=== PATIENT | male | born 1965 | race Caucasian/White ===

== ENCOUNTER → 2019-07-20 | Outpatient (CLI) | payer OTHER, SELFPAY ==
[2017-07-17 12:36] VITALS: BMI 22.8
[2019-07-20 11:32] LABS: PSA,Total - Annual Screen 0.86 ng/mL (0.00-4.00)
== END | disposition home or self-care (01) ==
LOC: LAB 10:42
PROVIDERS: Family Provider Family Medicine; PCP Family Medicine; Referring Provider Family Medicine; Visit Provider Family Medicine
DX: Z00.00 Encounter for general adult medical examination without abnormal findings (principal); Z12.5 Encounter for screening for malignant neoplasm of prostate
CPT/HCPCS: 36415; 84153; G0103

== ENCOUNTER 2019-09-23 14:42 | Emergency (ER) | payer OTHER, SELFPAY ==
[2019-09-23 14:44] VITALS: BP 147/77; PULSE 103; RESP 14; TEMP 36.6; O2SAT 96; BMI 31.8
--- NOTE | 2019-09-23 15:21 | ED.DCSUM_ITS ---
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 [id number]. Tetanus Immunization: 5-10 years - Past Medical History (1) Hyperlipidemia Status: Chronic Past Medical History - Allergies and Home Meds Allergies/Adverse Reactions: Allergies shellfish derived Allergy (Verified 09/23/19 14:43) Angioedema Primary Care Physician: Donato Patricia MD [Primary Care Provider] - Lives: With Family Smoking Status: Never smoker Review of Systems Musculoskeletal: Reports: Extremity Pain Skin: Reports: Wounds. Denies: Rash, Abscess Neurological: Denies: Headache, Weakness, Numbness Physical Exam Vital Signs/Narrative: Vital Signs Temp Pulse Resp BP Pulse Ox 09/23/19 14:44 97.8 F 103 H 14 147/77 H 96 General: Well nourished, Well developed, - - Well-appearing, NAD Head: Normocephalic, Atraumatic Extremeties: Tenderness, swelling, bruising to the volar distal phalanx/finger pad of the left fifth digit, as well as a small subungual hematoma at the base of the nail, tenderness is not severe. There is a laceration that is partial- thickness/superficial, clean appearing, curved just proximal to the nail on the dorsum, the nail is intact within the nailbed and the nail fold, there does not appear to be a nailbed laceration. Skin: Trauma - Superficial partial-thickness 1 cm laceration dorsum of the left small finger tip, just proximal to the nail at the radial aspect Neurological: Alert, Oriented x3, Cranial nerves II-XII grossly intact, Normal Strength, Normal Sensation, Normal Gait Psychological: Normal affect, Normal Mood Diagnostic/Tx/Re-eval Clinical Impression(s) from Imaging Studies Finger X-Ray 09/23/19 15:35 IMPRESSION: Nondisplaced transverse fracture through the distal portion of the distal phalanx of the fifth digit with overlying soft tissue swelling. Electronically Signed: Rodrigo Romero, at 15:49 EST , Service support , - Medical Decision Making X-ray shows a tuft fracture. After we cleansed the wound and reevaluated it, it does appear to expose the base of the nail although it is intact within the nail fold. There does not appear to be a repairable nailbed injury right now, just a subungual hematoma but the pressure is probably released because he does not have severe pain. Offered analgesics, he except some ibuprofen. We will bandage it with bacitracin, a cage distal finger splint, and prophylactic antibiotics given the probability that this is an open fracture. Since it is just a tuft fracture and will likely not require any surgical management, will have him start by following up with [employer] [facility]. He is comfortable with this plan. Prescribed Duricef. ED Disposition - Plan for ED Patient: Disposition: Home or Assisted Living Diagnosis: Open fracture of distal phalanx of digit of left hand Instructions: FRACTURE, Finger (Open) Prescriptions: Cefadroxil Hydrate [Duricef] 500 mg PO BID 5 Days #10 cap Prescription Printed Referrals: [facility] [GROUP OF PHYSICIANS] - 1 Day
--- NOTE | 2019-09-23 15:35 | RAD_ITS ---
STUDY: X-RAY - LEFT HAND, ATTENTION FIFTH FINGER REASON FOR EXAM: Male, 54 years old. Smashing injury to left fifth digit. TECHNIQUE: 3 view(s) of the finger were obtained. COMPARISON: None. FINDINGS: Normal metacarpal head. Normal metacarpophalangeal joint. Normal proximal phalanx. Normal middle phalanx. Nondisplaced transverse fracture of the distal aspect of the distal phalanx of the fifth digit. Normal proximal interphalangeal joint. Normal distal interphalangeal joint. Soft tissue swelling RAD/Finger(s) Min 2 Views IMPRESSION: Nondisplaced transverse fracture through the distal portion of the distal phalanx of the fifth digit with overlying soft tissue swelling. Electronically Signed: Rodrigo Romero, at 15:49 EST , Service support ,
[2019-09-23] MEDS: Ibuprofen 600 MG Tablet PO (16:14)
== END 2019-09-23 16:27 | disposition home or self-care (01) ==
PROVIDERS: Emergency Provider Emergency Medicine; Family Provider Family Medicine; PCP Family Medicine
DX: S62.667B Nondisplaced fracture of distal phalanx of left little finger, initial encounter for open fracture (principal); S60.152A Contusion of left little finger with damage to nail, initial encounter; W23.0XXA Caught, crushed, jammed, or pinched between moving objects, initial encounter; Y93.9 Activity, unspecified; Y92.9 Unspecified place or not applicable; E78.5 Hyperlipidemia, unspecified; Z79.899 Other long term (current) drug therapy
CPT/HCPCS: 73140; 99283

== ENCOUNTER → 2019-10-22 08:06 | Outpatient (CLI) | payer OTHER, SELFPAY ==
[2019-10-08 13:13] VITALS: BMI 31.8
[2019-10-22 08:56] LABS: Color, Urine Yellow (Yellow); Glucose, Dipstick Normal (Normal); Ketone-Dipstick 15 mg/dl (Negative); Leukocyte Esterase-Dipstick Negative /ul (Negative); Nitrite-Dipstick Negative (Negative); Occult Blood-Urine Negative /ul (Negative); Protein-Dipstick 15 mg/dl (Negative); Specific Gravity, Urine 1.025 (1.002-1.030); Urine Bilirubin Dipstick Negative (Negative); Urine Clarity Clear (Clear); Urine Urobilinogen Normal (Normal)
[2019-10-22 09:26] LABS: AST(SGOT) 23 U/L (15-37); Alanine Aminotransfer ALT/SGPT 40 U/L (16-61); Albumin, Serum 3.9 g/dL (3.2-5.0); Alkaline Phosphatase 80 U/L (45-117); Bilirubin, Direct 0.27 mg/dL (0.00-0.30); Cholesterol 167 mg/dL (200); Globulin 3.2 g/dL (2.2-4.2); High Density Lipoprotein 59 mg/dL; Protein, Total 7.1 g/dL (6.4-8.2); Triglycerides 69 mg/dL; Very Low Density Lipoprotein 14 mg/dL (5-40)
== END ==
PROVIDERS: Family Provider Family Medicine; PCP Family Medicine
DX: E78.5 Hyperlipidemia, unspecified (principal); R80.9 Proteinuria, unspecified
CPT/HCPCS: 36415; 80061; 80076; 81002

== ENCOUNTER → 2019-10-22 13:28 | Outpatient (CLI) | payer OTHER, SELFPAY ==
[2019-10-22 13:12] VITALS: BMI 31.8
--- NOTE | 2019-10-22 13:31 | RAD_ITS ---
STUDY: X-RAY - LEFT HAND, ATTENTION FIFTH FINGER REASON FOR EXAM: Male, 54 years old. Trauma. TECHNIQUE: 3 view(s) of the finger were obtained. COMPARISON: None. FINDINGS: Normal metacarpal head. Normal metacarpophalangeal joint. Normal proximal phalanx. Normal middle phalanx. There is a transverse fracture with separation along the fracture line involving the tip of the distal phalanx. Normal proximal interphalangeal joint. Normal distal interphalangeal joint. RAD/Finger(s) Min 2 Views IMPRESSION: Fracture of the tip of the distal phalanx of the fifth finger as described above. Electronically Signed: Bette Ghotra MD at 3:47 EST , Service support ,
== END ==
PROVIDERS: Family Provider Family Medicine; PCP Family Medicine; Referring Provider Physician Assistant Surgical; Visit Provider Physician Assistant Surgical
DX: S62.637B Displaced fracture of distal phalanx of left little finger, initial encounter for open fracture (principal)
CPT/HCPCS: 73140

== ENCOUNTER → 2020-01-28 08:16 | Outpatient (CLI) | payer OTHER, SELFPAY ==
[2019-10-22 13:12] VITALS: BMI 31.8
[2020-01-28 09:49] LABS: AST(SGOT) 23 U/L (15-37); Alanine Aminotransfer ALT/SGPT 36 U/L (16-61); Albumin, Serum 4.1 g/dL (3.2-5.0); Alkaline Phosphatase 74 U/L (45-117); Bilirubin, Direct 0.18 mg/dL (0.00-0.30); Cholesterol 164 mg/dL (200); Globulin 3.2 g/dL (2.2-4.2); High Density Lipoprotein 54 mg/dL; Protein, Total 7.3 g/dL (6.4-8.2); Triglycerides 87 mg/dL; Very Low Density Lipoprotein 17 mg/dL (5-40)
== END ==
PROVIDERS: PCP Family Medicine; Referring Provider Family Medicine; Visit Provider Family Medicine
DX: E78.5 Hyperlipidemia, unspecified (principal)
CPT/HCPCS: 36415; 80061; 80076

== ENCOUNTER → 2020-07-14 08:04 | Outpatient (CLI) | payer OTHER, SELFPAY ==
[2019-10-22 13:12] VITALS: BMI 31.8
[2020-07-14 09:17] LABS: Absolute Lymphocyte Count 1.97 X10^3/uL (0.83-4.51); Absolute Neutrophil Count 4.3 X10^3/uL (2.0-7.7); Basophil# 0.08 X10^3/uL; Basophil% 1.1 % (0-1); Eosinophil# 0.22 X10^3/uL; Eosinophils% 3.1 % (0-5); Hematocrit 46.3 % (40-54); Hemoglobin 15.5 g/dL (13.0-16.5); Lymphocyte # 1.97 X10^3/ul (4.0); Lymphocyte % 27.9 % (19-41); Mean Corp Hgb Conc 33.5 g/dL (32-36); Mean Corpuscular Hgb 30.8 pg (27.0-32.0); Mean Corpuscular Volume 91.9 fL (80-94); Mean Platelet Vol. 9.7 fl (6.2-12.0); Monocyte# 0.49 X10^3/uL; Monocyte% 6.9 % (0-10); NRBC Flagged by Analyzer 0 % (0-5); Neutrophil % 60.9 % (47-70); Platelet Count 234 K/mm3 (150-450); RBC Distribution Width CV 11.8 % (11.6-14.6); RBC Distribution Width SD 39.9 fl (35.1-43.9); Red Blood Count 5.04 M/mm3 (4.6-6.2); White Blood Count 7.1 K/mm3 (4.4-11.0)
[2020-07-14 09:53] LABS: ALB/GLOB Ratio 1.2 RATIO (0.9-2.4); AST(SGOT) 26 U/L (15-37); Alanine Aminotransfer ALT/SGPT 42 U/L (16-61); Albumin, Serum 3.9 g/dL (3.2-5.0); Alkaline Phosphatase 72 U/L (45-117); Anion Gap 6 (5-15); BUN 21 mg/dL (7-18); BUN/Creat Ratio 20.8 RATIO (10-20); Calcium,Total 8.7 mg/dL (8.5-10.1); Chloride 107 mmol/L (98-107); Creatinine, Serum 1.01 mg/dL (0.70-1.30); EST Glomerular Filtration Rate 82 mL/min (>60); Est Glom Filt Rate - Afr Amer 99 mL/min (>60); Globulin 3.3 g/dL (2.2-4.2); Glucose 89 mg/dL (74-106); Potassium 3.9 mmol/L (3.5-5.1); Protein, Total 7.2 g/dL (6.4-8.2); Sodium Level 141 mmol/L (136-145)
== END ==
PROVIDERS: PCP Family Medicine; Referring Provider Family Medicine; Visit Provider Family Medicine
DX: Z00.00 Encounter for general adult medical examination without abnormal findings (principal); E78.5 Hyperlipidemia, unspecified; Z12.5 Encounter for screening for malignant neoplasm of prostate
CPT/HCPCS: 36415; 80053; 85025

== ENCOUNTER → 2020-07-20 08:09 | Outpatient (CLI) | payer OTHER, SELFPAY ==
[2019-10-22 13:12] VITALS: BMI 31.8
[2020-07-20 09:27] LABS: PSA,Total - Annual Screen 0.89 ng/mL (0.00-4.00)
== END ==
PROVIDERS: PCP Family Medicine; Referring Provider Family Medicine; Visit Provider Family Medicine
DX: Z00.00 Encounter for general adult medical examination without abnormal findings (principal); Z12.5 Encounter for screening for malignant neoplasm of prostate
CPT/HCPCS: 36415; 84153; G0103

== ENCOUNTER → 2021-02-01 07:15 | Outpatient (CLI) | payer OTHER, SELFPAY ==
[2019-10-22 13:12] VITALS: BMI 31.8
[2021-02-01 08:08] LABS: AST(SGOT) 23 U/L (15-37); Alanine Aminotransfer ALT/SGPT 37 U/L (16-61); Alkaline Phosphatase 70 U/L (45-117); Bilirubin, Direct 0.23 mg/dL (0.00-0.30); Cholesterol 172 mg/dL (200); Globulin 3.3 g/dL (2.2-4.2); High Density Lipoprotein 70 mg/dL; Protein, Total 7.3 g/dL (6.4-8.2); Triglycerides 67 mg/dL; Very Low Density Lipoprotein 13 mg/dL (5-40)
== END ==
PROVIDERS: PCP Family Medicine; Referring Provider Family Medicine; Visit Provider Family Medicine
DX: E78.5 Hyperlipidemia, unspecified (principal)
CPT/HCPCS: 36415; 80061; 80076

== ENCOUNTER → 2021-08-08 07:16 | Outpatient (CLI) | payer OTHER, SELFPAY ==
[2021-08-08 08:22] LABS: PSA,Total - Annual Screen 1.41 ng/mL (0.00-4.00)
== END ==
PROVIDERS: PCP Family Medicine; Referring Provider Family Medicine; Visit Provider Family Medicine
DX: Z12.5 Encounter for screening for malignant neoplasm of prostate (principal)
CPT/HCPCS: 36415; 84153; G0103

== ENCOUNTER 2022-02-27 08:08 | Outpatient (CLI) | payer OTHER, SELFPAY ==
[2022-02-27 09:44] LABS: AST(SGOT) 22 U/L (15-37); Alanine Aminotransfer ALT/SGPT 35 U/L (16-61); Albumin, Serum 3.8 g/dL (3.2-5.0); Alkaline Phosphatase 61 U/L (45-117); Bilirubin, Direct 0.23 mg/dL (0.00-0.30); Cholesterol 168 mg/dL (200); High Density Lipoprotein 67 mg/dL; Protein, Total 6.8 g/dL (6.4-8.2); Triglycerides 79 mg/dL; Very Low Density Lipoprotein 16 mg/dL (5-40)
== END 2022-02-27 23:59 | disposition home or self-care (01) ==
LOC: LAB 08:09
PROVIDERS: PCP Family Medicine; Visit Provider Family Medicine
DX: E78.5 Hyperlipidemia, unspecified (principal)
CPT/HCPCS: 36415; 80061; 80076

== ENCOUNTER 2023-05-12 15:15 | Emergency (ER) | payer OTHER, SELFPAY ==
[2023-05-12 15:15] VITALS: BP 134/87; PULSE 108; RESP 16; TEMP 36.4; O2SAT 96; BMI 25.1
--- NOTE | 2023-05-12 16:19 | EX.ED.GENINJ ---
HPI History of Present Illness Chief Complaint: Laceration Narrative Narrative: 58-year-old male presenting with laceration to the scalp. He believes his tetanus is up-to-date. 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 Initially it was bleeding quite profusely. Able to get a dressing in place. He denies LOC. Denies dizziness, visual complaints, nausea. No neck pain. PFSH PFS Medical History Hyperlipemia Home Medications atorvastatin 10 mg tablet 10 mg PO QHS 09/23/19 [History Last Taken Unknown] Allergy/AdvReac Type Severity Reaction Status Date / Time shellfish derived Allergy Angioedema Verified 05/12/23 15:17 Social History Smoking Status: Never smoker ROS ROS ED Constitutional Constitutional ED: Denies chills, fever(s) or sweats Eyes Eyes: Denies blurry vision or change in vision ENT ENT ED: Denies ear pain or sore throat Cardiovascular Cardiovascular: Denies chest pain, palpitations or racing heartbeat Respiratory/Chest Respiratory/Chest: Denies cough, dyspnea or sputum Gastrointestinal Gastrointestinal: Denies abdominal pain, constipation, diarrhea, nausea or vomiting Genitourinary Genitourinary ED: Denies dysuria, hematuria or urinary frequency Musculoskeletal Musculoskeletal: Denies arthralgias, myalgias or neck pain Integumentary Reports other Details: 3 cm midline laceration and the scalp anteriorly. Bleeding controlled. ; Denies abscess, Abrasions or rash Neurologic Neurologic: Denies headache(s), paresthesias or weakness Psychiatric Psychiatric: Denies anxiety, depression, suicidal ideation or suicidal thoughts Endocrine Endocrinology: Denies polydipsia or polyuria EXAM Physical Exam Const Vital Signs: 05/12/23 15:15 Temperature 97.6 F L Temperature Source Temporal Pulse Rate 108 H Respiratory Rate 16 Blood Pressure 134/87 H Blood Pressure Mean 102 Pulse Ox 96 Oxygen Delivery Method Room Air Positive well nourished HEENT HEENT Narrative: 3 cm midline laceration and the scalp anteriorly. Bleeding controlled. Chest Wall inspection of chest normal Resp normal respiratory effort Cardio regular rhythm Rate: regular rate Extremity normal to inspection Neuro oriented x3, CN's II-XII intact bilaterally and moves all extremities Sensorium / Orientation: alert Motor Exam: strength 5/5 throughout Psych mental status grossly normal Skin Skin Narrative: 3 cm scalp laceration with well-controlled bleeding. No skull deformity. The wounds are approximated. MDM MDM MDM Narrative Medical decision making narrative: Patient has laceration in the midline of the anterior scalp. Is well approximated 3 cm long. No active bleeding. His tetanus is up-to-date. I do not think alexandra or sutures will benefit this. His wound to be cleaned and dressing was placed. He is amenable this plan. He will follow-up with employee health. Impression: 1. 3 cm scalp laceration Discharge Plan Triage Chief Complaint: Laceration ED Provider: Raghav Rivera Dx/Rx/DC Orders Instructions: ED Laceration Small or ... Prescriptions: No Action atorvastatin 10 MG tablet 10 mg PO QHS Primary Care Provider: Donato Patricia Referrals: Donato Patricia MD [Primary Care Provider] - Disposition Disposition: Home, Self Care
== END 2023-05-12 16:27 | disposition home or self-care (01) ==
LOC: ED 16:18
PROVIDERS: Emergency Provider Student in an Organized Health Care Education/Training Program; PCP Family Medicine; Visit Provider Student in an Organized Health Care Education/Training Program
DX: S01.01XA Laceration without foreign body of scalp, initial encounter (principal); Y99.0 Civilian activity done for income or pay; E78.5 Hyperlipidemia, unspecified; Z79.899 Other long term (current) drug therapy; W22.09XA Striking against other stationary object, initial encounter; Y92.239 Unspecified place in hospital as the place of occurrence of the external cause
CPT/HCPCS: 99282

== ENCOUNTER → 2023-08-12 | Outpatient (CLI) | payer OTHER, SELFPAY ==
[2023-08-12 08:44] LABS: PSA,Total - Annual Screen 1.01 ng/mL (0.00-4.00)
== END | disposition home or self-care (01) ==
LOC: LAB 07:25
PROVIDERS: PCP Family Medicine; Referring Provider Family Medicine; Visit Provider Family Medicine
DX: Z12.5 Encounter for screening for malignant neoplasm of prostate (principal)
CPT/HCPCS: 36415; 84153; G0103

== ENCOUNTER → 2024-02-27 | Outpatient (CLI) | payer OTHER, SELFPAY ==
[2024-02-27 09:44] LABS: ALB/GLOB Ratio 1.2 RATIO (0.9-2.4); AST(SGOT) 22 U/L (15-37); Alanine Aminotransfer ALT/SGPT 36 U/L (16-61); Albumin, Serum 3.9 g/dL (3.2-5.0); Alkaline Phosphatase 64 U/L (45-117); Anion Gap 5 (5-15); BUN 24 mg/dL (7-18); Calcium,Total 8.9 mg/dL (8.5-10.1); Chloride 109 mmol/L (98-107); Cholesterol 173 mg/dL (200); Creatinine, Serum 1.09 mg/dL (0.70-1.30); EST Glomerular Filtration Rate 74 mL/min (>60); Est Glom Filt Rate - Afr Amer 90 mL/min (>60); Globulin 3.2 g/dL (2.2-4.2); Glucose 106 mg/dL (74-106); High Density Lipoprotein 61 mg/dL; Potassium 4.5 mmol/L (3.5-5.1); Protein, Total 7.1 g/dL (6.4-8.2); Sodium Level 140 mmol/L (136-145); Triglycerides 67 mg/dL; Very Low Density Lipoprotein 13 mg/dL (5-40)
== END | disposition home or self-care (01) ==
PROVIDERS: PCP Family Medicine; Referring Provider Family Medicine; Visit Provider Family Medicine
DX: E78.00 Pure hypercholesterolemia, unspecified (principal)
CPT/HCPCS: 36415; 80053; 80061

== ENCOUNTER → 2024-08-23 | Outpatient (CLI) | payer OTHER, SELFPAY | END | disposition home or self-care (01) | LOC: LAB 07:54 | PROVIDERS: PCP Family Medicine; Referring Provider Family Medicine; Visit Provider Family Medicine | DX: Z12.5 Encounter for screening for malignant neoplasm of prostate (principal) | CPT/HCPCS: 36415; 84153; G0103 ==

== ENCOUNTER → 2025-03-21 | Outpatient (CLI) | payer OTHER, SELFPAY ==
--- NOTE | 2025-03-21 16:08 | RAD_ITS ---
PROCEDURE: LEFT ANKLE MIN 3 VIEWS 03/21/2025 REASON FOR EXAM: PAIN TECHNIQUE: 3 views of the LEFT ankle COMPARISON: No relevant prior. FINDINGS: Bones: No fractures or other osseous abnormalities. Joints: No subluxations or dislocations. Soft tissues: Unremarkable. RAD/Ankle min 3 Views IMPRESSION: No acute osseous findings. Reading Location: [facility]
--- NOTE | 2025-03-21 16:42 | RAD_ITS ---
EXAM: LEFT AND FIBULA CLINICAL HISTORY: INJURY. COMPARISON: NO RELEVANT PRIOR. TECHNIQUE: AP and lateral views. FINDINGS: Bones: No fractures or other osseous abnormalities. Joints: No subluxations or dislocations. Soft tissues: Unremarkable. RAD/Tibia & Fibula 2 Views IMPRESSION: 1. No acute osseous findings. Reading Location: [facility]
== END | disposition home or self-care (01) ==
PROVIDERS: PCP Family Medicine; Referring Provider Physician Assistant; Visit Provider Physician Assistant
DX: M25.572 Pain in left ankle and joints of left foot (principal); S89.92XA Unspecified injury of left lower leg, initial encounter
CPT/HCPCS: 73590; 73610

== ENCOUNTER 2025-07-10 00:21 | Emergency (ER) | payer OTHER, SELFPAY ==
[2025-07-10 00:22] VITALS: BP 118/87; PULSE 94; RESP 20; TEMP 36.8; O2SAT 97; BMI 25.1
[2025-07-10] MEDS: Epi Pen (EQUIV) 0.3 MG Syringe IM (00:29)
--- NOTE | 2025-07-10 00:35 | CT_ITS ---
PROCEDURE: SPINE CERVICAL WITHOUT CONTRAS 07/10/2025 REASON FOR EXAM: INJURY TECHNIQUE: SPINE CERVICAL WITHOUT CONTRAS Coronal and Sagittal reconstruction series were provided. One or more dose reduction techniques were used (e.g., Automated exposure control, adjustment of the mA and/or kV according to patient size, use of iterative reconstruction technique. RADIATION DOSE SUMMARY: DLP: 1244 mGycm COMPARISON: none FINDINGS: No acute compression deformity, fracture, or subluxation. Mild multilevel degenerative changes with mild multilevel central canal stenosis and foraminal stenosis due to posterior disc-osteophyte complex, facet hypertrophy, and uncovertebral hypertrophy. No high-grade central canal stenosis. The prevertebral soft tissues are not thickened. Thyroid is unremarkable. Limited sections of the lung apices demonstrate no pneumothorax. CT/Spine Cervical without Contras IMPRESSION: No acute cervical fracture or subluxations. Reading Location: [facility]
--- NOTE | 2025-07-10 00:35 | CT_ITS ---
PROCEDURE: BRAIN/HEAD WITHOUT CONTRAST 07/10/2025 REASON FOR EXAM: HEAD INJURY TECHNIQUE: BRAIN/HEAD WITHOUT CONTRAST Coronal and Sagittal reconstruction series were provided. One or more dose reduction techniques were used (e.g., Automated exposure control, adjustment of the mA and/or kV according to patient size, use of iterative reconstruction technique. RADIATION DOSE SUMMARY: DLP: 1244 mGycm COMPARISON: None FINDINGS: There is no acute infarct, intracranial hemorrhage, or mass effect. There is no hydrocephalus or significant midline shift. No acute, depressed calvarial fractures. No large scalp hematomas. The paranasal sinuses are clear. CT/Brain/Head without Contrast IMPRESSION: No acute intracranial process. Reading Location: [id number]
[2025-07-10] MEDS: Famotidine 200 MG/20 ML MDV 20 MG in 0.9% Normal Saline (Pres. free 8 ML 300 MG IV (00:37)
[2025-07-10 00:46] LABS: Hematocrit 46.7 % (40-54); Hemoglobin 15.7 g/dL (13.0-16.5); Immature Granulocytes Count 0.060 X10^3/uL (0.0-0.0); Mean Corp Hgb Conc 33.6 g/dL (32-36); Mean Corpuscular Volume 88.8 fL (80-94); Mean Platelet Vol. 9.5 fl (6.2-12.0); NRBC Flagged by Analyzer 0 % (0-5); Platelet Count 271 K/mm3 (150-450); RBC Distribution Width CV 13.4 % (11.6-14.6); RBC Distribution Width SD 43.8 fl (35.1-43.9); Red Blood Count 5.26 M/mm3 (4.6-6.2); White Blood Count 14.7 K/mm3 (4.4-11.0)
[2025-07-10] MEDS: 0.9% Normal Saline (1000mL) 1,000 ML 999 ML IV (01:03)
[2025-07-10] MEDS: Lidocaine 2% /Epi 1:100 (20ml) 20 ML VIAL INFILT (01:04)
[2025-07-10 01:22] VITALS: BP 126/81; PULSE 106; RESP 16; O2SAT 97
--- OUTSIDE RECORDS SUMMARY | 2025-07-10 01:29 | XMS RPT_ITS | CCD ---
Author Organization [facility] Care Team Providers Care Dice Dealer Name Role Phone Dr. Donato Roa Primary Care Provider Dr. Donato Roa Referring Provider Dr. Hipolito Padilla Attending Provider [phone] Arthur Taveras Primary Care Provider Donato Roa MD Primary Care Provider Donato Roa MD Primary Care Provider uSdarshan Shelton MD Unavailable Donato Roa MD Primary Care Provider Donato Roa MD Primary Care Provider Dr. Donato Roa MD Primary Care Provider Bhupinder Cardona Attending Provider Bhupinder Cardona Referring Provider [phone] Dr. Donato Roa MD Referring Provider Bhupinder Cardona Attending Unavailable Bhupinder Cardona Referring Unavailable Crispin, Donato Primary Care Unavailable Crispin Donato Referring Unavailable Crispin Donato Primary Care Unavailable Donato Roa Attending Unavailable Assessment, Health Risk Attending Unavaila ble Assessment, Health Risk Referring Unavaila ble Crispin, Donato Primary Care Unavailable Crispin, Donato Primary Care Unavailable Bhupinder Cardona Attending Unavailable Crispin Donato Referring Unavailable Crispin, Donato Primary Care Unavailable Bhupinder Cardona Attending Unavailable Donato oRa Referring Unavailable DONATO ROA Attending Unavailab le CRISPIN, DONATO LOPEZ Primary Care Unavailab le Allergies Allergy Classification Reported Allergen(s) Allergy Type Date of Onset Reaction(s) Facility (3 sources) Shellfish; Translations: [shellfish derived] Allergy to substance 10-22-2019 Angioedema [facility] (12 sources) Shellfish; Translations: [SHELLFISH CONTAINING PRODUCTS] Drug Allergy 07-18-2017 Anaphylaxis [facility] Medications Current Medications Medication Drug Class(es) Dates Sig (Normalized) Sig (Original) atorvastatin 10 mg oral tablet (20 sources) HMG-CoA Reductase Inhibitor Start: 07-23-2019 End: 03-21-2025 take 1 tablet by mouth once daily atorvastatin (LIPITOR) 10 mg tablet Take 1 tablet by mouth once daily. 90 tablet 3 08/30/2024 Active Comment on above: Take by mouth. Take 1 tablet by barrie th once daily. cephalexin 500 mg oral capsule (2 sources) Cephalosporin Antibacterial Start: 03-21-2025 take 1 capsule by mouth three times daily Cephalexin 500 mg capsule Active 500 mg PO THREE TIMES A DAY March 21, 2025 12:00am Completed/Discontinued Medications Medication Drug Class(es) Dates Sig (Normalized) Sig (Original) cefadroxil 500 mg oral capsule (6 sources) Cephalosporin Antibacterial Start: 09-23-2019 End: 09-29-2019 take 1 capsule by mouth twice daily Cefadroxil 500 MG capsule Discontinued 500 mg PO TWICE A DAY 08 21September 23, 2019 1:00am September 27, 2019 1:00am September 29, 2019 1:07am LORazepam 0.5 mg oral tablet (8 sources) Benzodiazepine Start: 01-02-2007 End: 08-20-2023 ATIVAN 0.5 MG TAB as needed 0 01/02/2007 08/20/2023 Discontinued Comment on above: as needed zolpidem tartrate 12.5 mg extended release oral tablet (8 sources) gamma-Aminobutyric Acid-ergic Agonist Start: 02-06-2007 End: 08-20-2023 AMBIEN CR 12.5 MG TAB .qd 0 02/06/2007 08/20/2023 Discontinued Comment on above: .qd Problems Active Problems Problem Classification Problem Date Documented Da te Episodic/Chronic Contraceptive and procreative management (20 sources) Patient encounter status; Translations: [Encounter for sterilization] Onset: 11-08-2005 11-08-2005 Episodic Disorders of lipid metabolism (20 sources) Hyperlipidemia; Translations: [Hyperlipidemia, unspecified] Onset: 07-23-2019 08-16-2022 Chronic Fracture of upper limb (18 sources) Open fracture of distal phalanx of little finger; Translations: [Nondisplaced fracture of distal phalanx of left little finger, initial encounter for open fracture] 10-25-2019 Episodic Other injuries and conditions due to external causes (1 source) Unspecified injury of left lower leg, initial encounter; Translations: [Unspecified injury of left lower leg, initial encounter] Onset: 05-05-2025 Episodic Other non-traumatic joint disorders (1 source) Pain in left ankle and joints of left foot; Translations: [Pain in left ankle and joints of left foot] Onset: 05-05-2025 Episodic Other upper respiratory disease (11 sources) Allergic rhinitis; Translations: [Allergic rhinitis, unspecified] Onset: 06-09-2017 08-16-2022 Chronic Other upper respiratory disease (2 sources) Allergic rhinitis due to pollen; Translations: [Allergic rhinitis due to pollen] 08-24-2023 Chronic Superficial injury; contusion (6 sources) Contusion of left lower leg; Translations: [Contusion of left lower leg, initial encounter] Onset: 05-05-2025 03-21-2025 Episodic Unclassified (4 sources) Abrasion, left lower leg, initial encounter 03-21-2025 Past or Other Problems Problem Classification Problem Date Documented Da te Episodic/Chronic Conditions associated with dizziness or vertigo (11 sources) Dizziness and giddiness; Translations: [Dizziness and giddiness] Onset: 12-11-2006 Resolved: 02-26-2024 12-11-2006 Episodic Miscellaneous mental health disorders (11 sources) Emotional problems; Translations: [Other symptoms and signs involving emotional state] Onset: 12-11-2006 Resolved: 02-26-2024 12-11-2006 Episodic Other nervous system disorders (12 sources) Skin sensation disturbance; Translations: [Unspecified disturbances of skin sensation] Onset: 12-11-2006 12-11-2006 Episodic Other non-epithelial cancer of skin (11 sources) Malignant neoplasm of skin; Translations: [Unspecified malignant neoplasm of skin, unspecified] Onset: 03-10-2018 08-16-2022 Episodic Other screening for suspected conditions (not mental disorders or infectious disease) (1 source) Encounter for screening for malignant neoplasm of prostate; Translations: [Encounter for screening for malignant neoplasm of prostate] Onset: 09-13-2024 Episodic Screening and history of mental health and substance abuse codes (2 sources) Encounter for screening for depression; Translations: [Encounter for screening examination for other mental health and behavioral disorders] Onset: 08-30-2024 Episodic Spondylosis; intervertebral disc disorders; other back problems (12 sources) Low back pain; Translations: [Lumbago] Onset: 12-11-2006 12-11-2006 Episodic Results Test Name Value Interpretation Reference Range Facility [facility] 06-14-2025 [facility] Telephone (FAMMAS) SUKH GARCIA ([id number]) 1965 Date Time Provider Department 06/14/25 DONATO ROA [facility] During your visit today, we recorded the following information about you: Erin Cervantes, ROSAURA 06/14/2025 2:48 PM Addendum Sukh Garcia called today. : 1965 Allergies: Shellfish Containing Products (home) [phone] (work) [phone] (cell) Reason for call: Sukh called to ask for a PSA lab order. He has an upcoming appointment with Dr Roa on 08/24/2025. His employer ([employer]) always orders annual blood tests which he will be getting done prior to his upcoming appointment. Sukh said he will bring the lab results reports along with him to the appointment to go over with Dr Roa. PSA is not included in the the tests the [facility] orders. He would like to have the PSA added please. Dr Roa please sign the order is if agreeable. Please call patient back with an answer. If approved please fax to #[phone] [facility]. Patient last appointment: 08/30/2024 Next appointment 08/2025 The patients preferred pharmacy has been captured for this encounter? no ROSAURA Singh Tawnya A, LPN 06/16/2025 2:21 PM Signed Please sign order. Erin Cervantes LPN June 16, 2025 2:21 PM Erin Cervantes LPN 07/06/2025 2:44 PM Signed PSA lab order faxed to [facility] fax to #[phone]. I called patient to let him know and he did not answer. I left a detailed voice mail for Sukh advising him that the lab order was faxed over to the hospital today. Erin Cervantes LPN July 06, 2025 2:44 PM Allergies As of Date: 06/14/2025 Noted Allergy Reaction SHELLFISH CONTAINING PRODUCTS 07/18/2017 10 - Anaphylaxis Date Reviewed: 08/30/2024 Reviewed by: Samina Aj LPN - Fully Assessed Reason for Visit: Orders [681] Primary Visit Diagnosis:Screening PSA (prostate specific antigen) [Z12.5] Order(s):PSA/PROSTATE SPECIFIC ANTIGEN SCREENING [SQPSAS1] Order #: [id number] FUTURE Prescriptions as of 07/06/2025 - atorvastatin (LIPITOR) 10 mg tablet Take 1 tablet by mouth once daily. Problem List As Of Date 06/14/2025 Noted Resolved STERILIZATION [Z30.2] 11/08/2005 PAIN BACK, LOW [M54.50] 12/11/2006 SKIN SENSATION DISTURB [R20.9] 12/11/2006 Predominant disturbance of emotions [R45.89] 12/11/2006 02/26/2024 Dizziness and giddiness [R42] 12/11/2006 02/26/2024 Allergic rhinitis [J30.9] 06/09/2017 Hyperlipidemia [E78.5] 07/23/2019 Malignant neoplasm of skin [C44.90] 03/10/2018 Well adult health check [Z00.00] 08/13/2018 Encounter for screening for malignant neoplasm *06/08/2019 Encounter Status:Closed by DONATO ROA on 06/19/25 [facility] Urgent Care Visit Reporton 0 5-13-2025 Urgent Care Visit Report [facility] [address], [address] [place] [address] OFFICE VISIT Date of Service: 03/29/25 MR#: [id number] Acct: [id number] Name: SUKH GARCIA Rep #: [id number] : 1965 Provider: GABBIE Benedict Age/Sex: 60/M Location: [facility] Status: Signed Intake Vital Signs 03/21/25 16:34 03/29/25 16:00 Height 5 ft 9 in Weight: 171 lb 6 oz BMI 25.2 BP 100/60 110/68 Position Sitting Sitting Pulse 80 95 Temp 98.5 F Temp Source Oral Pulse Oximetry (%) 97 98 Oxygen Delivery Method room air room air Intake Visit Reasons: L ANKLE / H Chief Complaint: Follow-up for left little finger fracture-- worker's comp Accompanied by: Self Allergies shellfish derived Allergy (Verified 03/29/25 16:00) Angioedema Medications ???Medication ???Instructions ???Recorded ???Confirmed ???Type atorvastatin 10 mg tablet 10 mg PO QHS 03/21/25 03/29/25 His tory cephalexin 500 mg capsule 500 mg PO TID #21 caps 03/21/25 Rx Nurse's Note: Patient is here for [facility] f/u. [facility] Medical History (Updated 03/21/25 @ 16:42 by Bhupinder CARTWRIGHT, PA) Abrasion, left lower leg, initial encounter Contusion of left lower leg Hyperlipemia Social History Smoking Status: Never smoker HPI HPI Chief Complaint: Follow-up for left little finger fracture-- worker's comp Details: SUKH GARCIA, is a 60 M who presents to the office today for f[facility]u at the [facility] status post patient states he hurt his ankle/ lower leg 01/11/2025. He hit it on a book shelve, but admits never reporting the incident as he thought the wound would naturally healed w/o complications. He states since his last evaluation here, the sore on his left lower leg has nearly resolved. He notes compliance with antibiotics as prescribed as well as wound care. No complaints of fever, chills; no complaints of drainage from pinpoint wound site; no loss of sensation or strength or function at injury site or distally. No other associated symptoms and no other alleviating/aggravating factors. ROS Const Constitutional: No other (As above) Exam Const General: cooperative, healthy appearing and no acute distress Orientation: alert and awake Resp Effort Inspection: normal respiratory effort and able to speak in complete sentences Cardio Rate: regular rate Pulses: radial pulses present Skin General: no rashes or lesions noted Neuro General: patient alert, patient awake and gait normal Cognition: normal cognition Speech: speech normal Gait: normal gait Extrem General: full ROM, capillary refill normal and normal exam except as noted ( 1 mm closed nonerythematous appropriately granulating wound left anterior lower leg) Psych Appearance: grossly normal Mental Status: mental status grossly normal Mood: congruent mood Affect: normal affect Speech and Movement: speech and movement normal Attitude: cooperative Diagnoses Contusion of left lower leg S80.12XA Abrasion, left lower leg, initial encounter S80.812A Assessment and Plan Assessment and Plan (1) Contusion of left lower leg: Status: Acute (2) Abrasion, left lower leg, initial encounter: Status: Acute Plan: Released to return to work without restrictions as noted on today's [employer]. Cephalexin as prescribed was completed earlier today. Follow-up with the [facility] on an as-needed basis only. Patient states acknowledging understanding all the above. Coding Level of Care Code Off vis,est,level 2 03/29/25 1614 Date Bhupinder Otero Signature: Date (if applicable) CC: Normal [facility] Ankle min 3 Viewson 03-21-20 25 Ankle min 3 Views [facility] Imaging Services [address] [place] [address] [id number] Ankle min 3 Views MR#: [id number] Acct: [id number] Name: SUKH GARCIA Rep #: [id number] : 1965 M 60 From: Vladislav Santana MD PCP: Dr. Donato Roa MD Status: REG CLI Study: Ankle min 3 Views Date of Exam: 03/21/25 Exam# [id number] Ordering Dr: Bhupinder Borges PROCEDURE: LEFT ANKLE MIN 3 VIEWS 03/21/2025 REASON FOR EXAM: PAIN TECHNIQUE: 3 views of the LEFT ankle COMPARISON: No relevant prior. FINDINGS: Bones: No fractures or other osseous abnormalities. Joints: No subluxations or dislocations. Soft tissues: Unremarkable. RAD/Ankle min 3 Views IMPRESSION: No acute osseous findings. Reading Location: [facility] CC: Dr. Donato Roa MD; GABBIE Benedict Health Plan Specialist: Signed Normal [facility] Tibia Fibula 2 Viewson 03-21 Tibia Fibula 2 Views [facility] Services [address] [place] [address] Tibia Fibula 2 Views MR#: [id number] Acct: [id number] Name: SUKH GARCIA Rep #: [id number] : 1965 M 60 From: Vladislav Santana MD PCP: Dr. Donato Roa MD Status: REG CLI Study: Tibia Fibula 2 Views Date of Exam: 03/21/25 Exam# [id number] Ordering Dr: Bhupinder Borges EXAM: LEFT AND FIBULA CLINICAL HISTORY: INJURY. COMPARISON: NO RELEVANT PRIOR. TECHNIQUE: AP and lateral views. FINDINGS: Bones: No fractures or other osseous abnormalities. Joints: No subluxations or dislocations. Soft tissues: Unremarkable. RAD/Tibia Fibula 2 Views IMPRESSION: 1. No acute osseous findings. Reading Location: [facility] CC: Dr. Donato Roa MD; GABBIE Benedict Health Plan Specialist: Signed Normal [facility] Urgent Care Visit Reporton 0 03-21-2025 Urgent Care Visit Report [facility] [address], [address] [place] [address] OFFICE VISIT Date of Service: 03/21/25 MR#: [id number] Acct: [id number] Name: SUKH GARCIA Rep #: [id number] : 1965 Provider: GABBIE Benedict Age/Sex: 60/M Location: [facility] Status: Signed Intake Vital Signs 05/12/23 15:15 03/21/25 16:34 Height 5 ft 9 in 5 ft 9 in Weight: 171 lb 6 oz BMI 25.2 BP 100/60 Position Sitting Pulse 80 Temp 98.5 F Temp Source Oral Pulse Oximetry (%) 97 Oxygen Delivery Method room air Intake Visit Reasons: L ANKLE INJURY/ [facility] Accompanied by: Self Allergies shellfish derived Allergy (Verified 03/21/25 16:30) Angioedema Medications ???Medication ???Instructions ???Recorded ???Confirmed ???Type atorvastatin 10 mg tablet 10 mg PO QHS 03/21/25 03/21/25 His tory cephalexin 500 mg capsule 500 mg PO TID #21 caps 03/21/25 Rx Nurse's Note: Patient has Left ankle pain. Patient states he hurt his ankle 2-3 months ago. He hit it on a book shelve. He states he has a sore on his ankle that isn't completely healed. [facility] Medical History (Updated 03/21/25 @ 16:42 by Bhupinder CARTWRIGHT, PA) Abrasion, left lower leg, initial encounter Contusion of left lower leg Hyperlipemia Social History Smoking Status: Never smoker HPI HPI Details: SUKH GARCIA, is a 60 M who presents to the [facility] today [facility] states he hurt his ankle/ lower leg 01/11/2025. He hit it on a book shelve, but admits never reporting the incident as he thought the wound would naturally healed w/o complications. He states he has a sore on his left lower leg (not ankle as he described on FROI) that isn't completely healed/ still sore. No complaints of fever, chills; no complaints of drainage from pinpoint wound site; no loss of sensation or strength or function at injury site or distally. No abyt-xta-nyglrxy topical products been tried to assist. No other associated symptoms and no other alleviating/aggravating factors. ROS Const Constitutional: No other (As above) Exam Const General: cooperative, healthy appearing and no acute distress Orientation: alert and awake Resp Effort Inspection: normal respiratory effort and able to speak in complete sentences Cardio Rate: regular rate Pulses: radial pulses present Skin General: no rashes or lesions noted Neuro General: patient alert, patient awake and gait normal Cognition: normal cognition Speech: speech normal Gait: normal gait Extrem General: full ROM, capillary refill normal and normal exam except as noted ( 2 millimeter open erythematous wound left anterior lower leg) Psych Appearance: grossly normal Mental Status: mental status grossly normal Mood: congruent mood Affect: normal affect Speech and Movement: speech and movement normal Attitude: cooperative Office Procedures Incision and Drainage Procedure performed by: Bhupinder oBrges Informed consent given: Yes Consent signed: No (Verbal consent given) Time out checklist: patient, procedure, site marked/identified, positioning of patient, supplies available and allergies confirmed Anesthesia: local (Lidocaine 2 Percent Fld. block 1.5 mL) Incision with: #11 blade Drainage quality: minimal-none Lesion: erythema, drainage, fluctuance, induration and necrosis Dressing: gauze Patient tolerated procedure: well Complications: No Coding Level of Care Code Attention Program Advocate Diagnoses Contusion of left lower leg S80.12XA Abrasion, left lower leg, initial encounter S80.812A Comment [id number], [id number] Assessment and Plan Assessment and Plan (1) Contusion of left lower leg: Status: Acute (2) Abrasion, left lower leg, initial encounter: Status: Acute Plan: Tib-fib, left ankle radiographs reveal no acute osseous pathology or soft tissue compromise per my review, pending radiologist interpretation at the time patient discharge. Return to work without restrictions, keeping wound covered at work at all times as noted on today's [employer]. Cephalexin as prescribed today. Twice daily wound care as instructed today. Follow-up in the [facility] on 03/29/2025, sooner should symptoms worsen or any other concerns develop. Patient states acknowledging understanding all the above. This note was generated with Dragon dictation software. It may contain incorrect words, spelling, and punctuation that were not noted in checking the note before signing. Orders: Orders Ankle min 3 Views Today M25.572 - Pain in left ankle and joints of left foot Tibia Fibula 2 Views Today S89.92XA - Unspecified injury of left lower leg, initial encounter Medications: New cephalexin 5 (more content not included)... Normal [facility] CNOVon 08-30-2024 CNOV Office Visit (FAMMAS ) SUKH GARCIA ([id number]) 1965 M Date Time Provider Department 08/30/24 5:00 PM DONATO ROA During your visit today, we recorded the following information about you: Temperature Pulse Respiration Blood pressure 97.6 degrees 70/minute 18/minute 126/82 Weight Height 78.9 kg 1.753 m Samina Aj LPN 09/01/2024 10:10 AM Signed [employer] Hepatitis C Screening declined HIV Screening declined Hepatitis B Vaccine(1 of 3 - 19+ 3-dose series) declined Lipid Screening Diabetes Screening Shingrix Vaccine(1 of 2) declined Prostate Cancer Screening Discussion declined Influenza Vaccine(1) [facility] Covid-19 Vaccine( season)[facility] Samina Aj LPN August 30, 2024 5:00 PM Donato Roa MD 09/01/2024 10:10 AM Signed Subjective Sukh Garcia is a 59 year old male. Sukh presents today for his annual wellness visit. Additionally follows up for his hyperlipidemia. He continues on Lipitor for treatment. He is tolerating this well. Recent lab work completed through his employee health program shows well-controlled cholesterol. Review of Systems Constitutional: Negative. HENT: Negative. Eyes: Negative. Respiratory: Negative. Cardiovascular: Negative. Gastrointestinal: Negative. Endocrine: Negative. Genitourinary: Negative. Musculoskeletal: Negative. Skin: Negative. Allergic/Immunologic: Negative. Neurological: Negative. Hematological: Negative. Psychiatric/Behavioral: Negative. PAST SURGICAL HISTORY Procedure Laterality Date VASECTOMY UNI/BI SPX W/POSTOP SEMEN EXAMS 11/08/05 PAST MEDICAL HISTORY Diagnosis Date Allergic rhinitis Insomnia FAMILY HISTORY Problem Relation Age of Onset other (tongue cancer) Mother other (Bladder Cancer) Father Bladder Social History Tobacco Use Smoking status: Never Passive exposure: Never Smokeless tobacco: Never Vaping Use Vaping status: Never Used Substance Use Topics Alcohol use: Yes Comment: OCCASSIONALLY Drug use: No ALLERGIES Allergen Reactions Shellfish Containin* Anaphylaxis MEDICATIONS: atorvastatin (LIPITOR) 10 mg tablet Take 1 tablet by mouth once daily. Allergies, past surgical history, family history and past medical history were reviewed per this encounter. Medications were reviewed and verified. 02/25/2024 08/30/2024 INTAKE PAIN ASSESSMENT Are you having pain associated with your visit today? No No If pain assessment is 0, no action needed. If pain assessment is positive, please see assessment and plain. Objective BP 126/82 (BP Site: Left Arm, BP Position: Sitting, BP Cuff Size: Regular Adult) Pulse 70 Temp 36.4 ?C (97.6 ?F) (Temporal) Resp 18 Ht 175.3 cm (5' 9) Wt 78.9 kg (174 lb) SpO2 97% BMI 25.70 kg/m? Physical Exam Vitals reviewed. Constitutional: Appearance: Normal appearance. HENT: Head: Normocephalic and atraumatic. Nose: Nose normal. Eyes: Extraocular Movements: Extraocular movements intact. Pupils: Pupils are equal, round, and reactive to light. Cardiovascular: Rate and Rhythm: Normal rate and regular rhythm. Pulmonary: Effort: Pulmonary effort is normal. Breath sounds: Normal breath sounds. Abdominal: General: Bowel sounds are normal. Palpations: Abdomen is soft. Musculoskeletal: General: Normal range of motion. Cervical back: Normal range of motion and neck supple. Skin: General: Skin is warm and dry. Capillary Refill: Capillary refill takes less than 2 seconds. Neurological: General: No focal deficit present. Mental Status: He is alert and oriented to person, place, and time. Mental status is at baseline. Psychiatric: Mood and Affect: Mood normal. Behavior: Behavior normal. Assessment and Plan Encounter Diagnosis ICD-10-CM 1. Wellness examination Z00.00 2. Screening for depression Z13.31 DEPRESSION SCREENING 3. Encounter for screening examination for other mental health and behavioral disorders Z13.39 ANXIETY SCREENING 4. Pure hypercholesterolemia E78.00 Improved on Lipitor. All open preventative health maintenance topics discussed with patient in detail. This includes risks and benefits regarding vaccines, cancer screening, healthy life style, and diet. Continue present medications. Check labs as above. Monitor blood pressure regularly. Exercise as tolerated. Maintain good diet. Follow-up in 6 months. Allergies As of Date: 08/30/2024 Noted Allergy Reaction SHELLFISH CONTAINING PRODUCTS 07/18/2017 10 - Anaphylaxis Date Reviewed: 08/30/2024 Reviewed by: Samina Aj LPN - Fully Assessed Reason for Visit: Wellness [440] Primary Visit Diagnosis:Wellness examination [Z00.00] Other Visit Diagnoses:Screening for depression [Z13.31] Encounter for screening examination for other mental health and be (more content not included)... Normal [facility] CBC, Employeeon 08-23-2024 Absolute Lymph 1.64 X10 3/uL Normal 0.83-4.51 [facility] Comment on above: Performed By: #### L 500.2900, L400.0100, L100.0200 #### [facility] [address] [place], [address] Absolute Neut 4.1 X10 3/uL Normal 2.0-7.7 [facility] [facility] Comment on above: Performed By: #### L 500.2900, L400.0100, L100.0200 #### [facility] [address] [place], [address] Basophils/100 WBC (Bld) 1.3 % High 0-1 [facility] Comment on above: Performed By: #### L 500.2900, L400.0100, L100.0200 #### [facility] [address] [place], [address] Eosinophils/100 WBC (Bld) 2.5 % Normal 0-5 [facility] Comment on above: Performed By: #### L 500.2900, L400.0100, L100.0200 #### [facility] [address] [place], [address] Erythrocyte distribution width (RBC) [Ratio] 11.9 % Normal 11.6-14.6 [facility] Comment on above: Performed By: #### L 500.2900, L400.0100, L100.0200 #### [facility] [address] [place], [address] Hematocrit (Bld) [Volume fraction] 46.2 % Normal 40-54 [facility] Comment on above: Performed By: #### L 500.2900, L400.0100, L100.0200 #### [facility] [address] [place], [address] Hemoglobin (Bld) [Mass/Vol] 15.1 g/dL Normal 13.0-16.5 [facility] Comment on above: Performed By: #### L 500.2900, L400.0100, L100.0200 #### [facility] [address] [place], [address] Lymphocytes/100 WBC (Bld) 25.7 % Normal 19-41 [facility] Comment on above: Performed By: #### L 500.2900, L400.0100, L100.0200 #### [facility] [address] [place], [address] MCH (RBC) [Entitic mass] 30.3 pg Normal 27.0-32.0 [facility] Comment on above: Performed By: #### L 500.2900, L400.0100, L100.0200 #### [facility] [address] [place], [address] MCHC (RBC) [Mass/Vol] 32.7 g/dL Normal 32-36 [facility] Comment on above: Performed By: #### L 500.2900, L400.0100, L100.0200 #### [facility] [address] [place], [address] MCV (RBC) [Entitic vol] 92.6 fL Normal 80-94 [facility] Comment on above: Performed By: #### L 500.2900, L400.0100, L100.0200 #### [facility] [address] [place], [address] Monocytes/100 WBC (Bld) 6.7 % Normal 0-10 [facility] Comment on above: Performed By: #### L 500.2900, L400.0100, L100.0200 #### [facility] [address] [place], [address] Neutrophils/100 WBC (Bld) 63.5 % Normal 47-70 [facility] Comment on above: Performed By: #### L 500.2900, L400.0100, L100.0200 #### [facility] [address] [place], [address] NRBC # 0.00 10 3/uL Normal 0-5 [facility] Comment on above: Performed By: #### L 500.2900, L400.0100, L100.0200 #### [facility] [address] [place], [address] Nucleated RBC (Bld) [#/Vol] 0 10*3/uL Normal 0-5 [facility] Comment on above: Performed By: #### L 500.2900, L400.0100, L100.0200 #### [facility] [address] [place], [address] Platelet mean volume (Bld) [Entitic vol] 9.8 fL Normal 6.2-12.0 [facility] Comment on above: Performed By: #### L 500.2900, L400.0100, L100.0200 #### [facility] [address] [place], [address] Platelets (Bld) [#/Vol] 269 10*3/uL Normal 150-450 [facility] Comment on above: Performed By: #### L 500.2900, L400.0100, L100.0200 #### [facility] [address] [place], [address] RBC (Bld) [#/Vol] 4.99 10*6/uL Normal 4.6-6.2 [facility] Comment on above: Performed By: #### L 500.2900, L400.0100, L100.0200 #### [facility] [address] [place], [address] RDW SD 40.2 fl Normal 35.1-43.9 [facility] Comment on above: Performed By: #### L 500.2900, L400.0100, L100.0200 #### [facility] [address] [place], [address] WBC (Bld) [#/Vol] 6.4 10*3/uL Normal 4.4-11.0 [facility] Comment on above: Performed By: #### L 500.2900, L400.0100, L100.0200 #### [facility] [address] [place], [address] [employer] 4 Albumin [Mass/Vol] 3.7 g/dL Normal 3.2-5.0 [facility] Comment on above: Performed By: #### L 500.2900, L400.0100, L100.0200 #### [facility] [address] [place], [address] Albumin/Globulin [Mass ratio] 1.1 {ratio} Normal 0.9-2.4 [facility] Comment on above: Performed By: #### L 500.2900, L400.0100, L100.0200 #### [facility] [address] [place], [address] ALK P 80 U/L Normal 45-117 [facility] Comment on above: Performed By: #### L 500.2900, L400.0100, L100.0200 #### [facility] [address] [place], [address] ALT [Catalytic activity/Vol] 58 U/L Normal 16-61 [facility] Comment on above: Performed By: #### L 500.2900, L400.0100, L100.0200 #### [facility] [address] [place], [address] AST [Catalytic activity/Vol] 61 U/L High 15-37 [facility] Comment on above: Performed By: #### L 500.2900, L400.0100, L100.0200 #### [facility] [address] [place], [address] Bilirubin [Mass/Vol] 0.60 mg/dL Normal 0.20-1.00 [facility] Comment on above: Result Comment: For patients on eltrombopag therapy, use of Dimension Lindsay TBIL is not recommended. Performed By: #### L 500.2900, L400.0100, L100.0200 #### [facility] [address] [place], [address] Bilirubin.direct [Mass/Vol] 0.16 mg/dL Normal 0.00-0.30 [facility] Comment on above: Performed By: #### L 500.2900, L400.0100, L100.0200 #### [facility] [address] [place], [address] BUN/CRE 18.2 RATIO Normal 10-20 [facility] Comment on above: Performed By: #### L 500.2900, L400.0100, L100.0200 #### [facility] [address] [place], [address] CA,Total 8.7 mg/dL Normal 8.5-10.1 [facility] Comment on above: Performed By: #### L 500.2900, L400.0100, L100.0200 #### [facility] [address] [place], [address] Chloride [Moles/Vol] 108 mmol/L High 98-107 [facility] Comment on above: Performed By: #### L 500.2900, L400.0100, L100.0200 #### [facility] [address] [place], [address] CHOL:HDL 2.70 Normal [facility] Comment on above: Performed By: #### L 500.2900, L400.0100, L100.0200 #### [facility] [address] [place], [address] Cholesterol [Mass/Vol] 166 mg/dL Normal 200 [facility] Comment on above: Result Comment: <200 mg/dL Desirable 200-240 mg/dL Borderline >240 mg/dL High Risk Performed By: #### L 500.2900, L400.0100, L100.0200 #### [facility] [address] [place], [address] Cholesterol in HDL [Mass/Vol] 61 mg/dL Normal [facility] Comment on above: Result Comment: The drugs N-Acetylcysteine and Metamizole may falsely depress this assay. Reference Range HDL <40 mg/dL Low HDL Cholesterol HDL >or= 60 mg/dL High HDL Cholesterol Performed By: #### L 500.2900, L400.0100, L100.0200 #### [facility] [address] [place], [address] Cholesterol in LDL [Mass/Vol] 94 mg/dL Normal 0-130 [facility] Comment on above: Performed By: #### L 500.2900, L400.0100, L100.0200 #### [facility] [address] [place], [address] Cholesterol in VLDL [Mass/Vol] 11 mg/dL Normal 5-40 [facility] Comment on above: Performed By: #### L 500.2900, L400.0100, L100.0200 #### [facility] [address] [place], [address] CO2 [Moles/Vol] 25.0 mmol/L Normal 21.0-32.0 [facility] Comment on above: Performed By: #### L 500.2900, L400.0100, L100.0200 #### [facility] [address] [place], [address] Creatinine [Mass/Vol] 1.10 mg/dL Normal 0.70-1.30 [facility] Comment on above: Result Comment: The validity of the calculated GFR GFRAA in patients over 70 years has not been determined. Clinical correlation is essential. Performed By: #### L 500.2900, L400.0100, L100.0200 #### [facility] [address] [place], [address] EST GFR - AA 89 mL/min Normal >60 [facility] Comment on above: Result Comment: Afri can Martiniquais GFR Calc Performed By: #### L 500.2900, L400.0100, L100.0200 #### [facility] [address] [place], [address] GAP 7 Normal 5-15 [facility] Comment on above: Performed By: #### L 500.2900, L400.0100, L100.0200 #### [facility] [address] [place], [address] GFR/1.73 sq M.predicted among non-blacks MDRD (S/P/Bld) [Vol rate/Area] 73 mL/min/{1.73_m2} Normal >60 [facility] Comment on above: Result Comment: Non- GFR Calc Performed By: #### L 500.2900, L400.0100, L100.0200 #### [facility] [address] [place], [address] Globulin (S) [Mass/Vol] 3.4 g/dL Normal 2.2-4.2 [facility] Comment on above: Performed By: #### L 500.2900, L400.0100, L100.0200 #### [facility] [address] [place], [address] Glucose [Mass/Vol] 96 mg/dL Normal 74-106 [facility] Comment on above: Performed By: #### L 500.2900, L400.0100, L100.0200 #### [facility] [address] [place], [address] LDH 181 U/L Normal 87-241 [facility] Comment on above: Performed By: #### L 500.2900, L400.0100, L100.0200 #### [facility] [address] [place], [address] Phosphate [Mass/Vol] 2.9 mg/dL Normal 2.5-4.9 [facility] Comment on above: Performed By: #### L 500.2900, L400.0100, L100.0200 #### [facility] [address] [place], [address] Potassium [Moles/Vol] 4.3 mmol/L Normal 3.5-5.1 [facility] Comment on above: Performed By: #### L 500.2900, L400.0100, L100.0200 #### [facility] [address] [place], [address] Sodium [Moles/Vol] 140 mmol/L Normal 136-145 [facility] Comment on above: Performed By: #### L 500.2900, L400.0100, L100.0200 #### [facility] [address] [place], [address] T PROT 7.1 g/dL Normal 6.4-8.2 [facility] Comment on above: Performed By: #### L 500.2900, L400.0100, L100.0200 #### [facility] [address] [place], [address] Triglyceride [Mass/Vol] 57 mg/dL Normal [facility] Comment on above: Result Comment: The drugs N-Acetylcysteine and Metamizole may falsely depress this assay. Serum Triglycerides Reference Interval Normal <150 mg/dL Borderline high 150 - 199 mg/dL High 200 - 499 mg/dL Very High > or = 500 mg/dL Performed By: #### L 500.2900, L400.0100, L100.0200 #### [facility] [address] [place], [address] Urea nitrogen [Mass/Vol] 20 mg/dL High 7-18 [facility] Comment on above: Performed By: #### L 500.2900, L400.0100, L100.0200 #### [facility] [address] [place], [address] URIC 5.3 mg/dL Normal 3.5-7.2 [facility] Comment on above: Result Comment: The drugs N-Acetylcysteine and Metamizole may falsely depress this assay. Performed By: #### L 500.2900, L400.0100, L100.0200 #### [facility] [address] [place], [address] PSA,Total - Annual Screenon 08-23-2024 PSA,TOT SCREEN 1.10 ng/mL Normal 0.00-4.00 [facility] Comment on above: Result Comment: This test was performed using the TPSA assay method for the [employer] chemistry system. Values obtained with different assay methods cannot be used interchangably. When changing PSA assays in the course of monitoring a patient, additional sequential testing should be carried out to confirm baseline values. Performed By: #### L 501.9910 #### [facility] [address] [place], [address] Urinalysis, Employeeon 08-23 BILIRUBIN URINE Negative Normal Negative [facility] Comment on above: Order Comment: CLEAN CATCH Performed By: #### L 500.2900, L400.0100, L100.0200 #### [facility] [address] [place], [address] Clarity (U) Clear Normal Clear [facility] Comment on above: Order Comment: CLEAN CATCH Performed By: #### L 500.2900, L400.0100, L100.0200 #### [facility] [address] [place], [address] Color (U) Yellow Normal Yellow [facility] Comment on above: Order Comment: CLEAN CATCH Performed By: #### L 500.2900, L400.0100, L100.0200 #### [facility] [address] [place], [address] GLUCOSE, UR Normal Normal Normal [facility] Comment on above: Order Comment: CLEAN CATCH Performed By: #### L 500.2900, L400.0100, L100.0200 #### [facility] [address] [place], [address] KETONE UR Negative Normal Negative [facility] Comment on above: Order Comment: CLEAN CATCH Performed By: #### L 500.2900, L400.0100, L100.0200 #### [facility] [address] [place], [address] LEUK ESTERASE Negative Normal Negative [facility] Comment on above: Order Comment: CLEAN CATCH Performed By: #### L 500.2900, L400.0100, L100.0200 #### [facility] [address] [place], [address] Nitrite Ql (U) Negative Normal Negative [facility] Comment on above: Order Comment: CLEAN CATCH Performed By: #### L 500.2900, L400.0100, L100.0200 #### [facility] [address] [place], [address] OCCULT BLOOD-UR Negative Normal Negative [facility] Comment on above: Order Comment: CLEAN CATCH Performed By: #### L 500.2900, L400.0100, L100.0200 #### [facility] [address] [place], [address] pH UR 6.0 Normal 5.0 - 8.0 [facility] Comment on above: Order Comment: CLEAN CATCH Performed By: #### L 500.2900, L400.0100, L100.0200 #### [facility] [address] [place], [address] PROT DIPSTX Negative Normal Negative [facility] Comment on above: Order Comment: CLEAN CATCH Performed By: #### L 500.2900, L400.0100, L100.0200 #### [facility] [address] [place], [address] SP.GR. DIPSTX 1.020 Normal 1.002-1.030 [facility] Comment on above: Order Comment: CLEAN CATCH Performed By: #### L 500.2900, L400.0100, L100.0200 #### [facility] [address] [place], [address] UROBILI Normal Normal Normal [facility] Comment on above: Order Comment: CLEAN CATCH Performed By: #### L 500.2900, L400.0100, L100.0200 #### [facility] [address] [place], [address] [facility] 08-03-2024 [facility] Telephone ([employer]) SUKH GARCIA ([id number]) 1965 M Date Time Provider Department 08/03/24 DONATO ROA During your visit today, we recorded the following information about you: Erin Cervantes LPN 08/03/2024 10:38 AM Addendum Sukh Rebecca Jose called today. : 1965 Allergies: Shellfish Containing Products (home) [phone] (work) [phone] (cell) Reason for call: Sukh called to ask for a PSA lab order. He has an upcoming appointment with Dr Roa on 08/30/2024. His employer ([employer]) always orders annual blood tests which he will be getting done prior to his upcoming appointment. Sukh said he will bring the lab results reports along with him to the appointment to go over with Dr Roa. PSA is not included in the the tests the hospital orders. He would like to have the PSA added please. Dr Roa please sign the order is if agreeable. Please call patient back with an answer. If approved please fax to #[phone] [facility]. Patient last appointment: 02/25/2024 Next appointment 08/30/2024 The patients preferred pharmacy has been captured for this encounter? no ROSAURA Singh Raymond Gregory, MD 08/03/2024 10:59 AM Signed Order is signed Erin Cervantes LPN 08/03/2024 12:21 PM Signed PSA order faxed to [facility] fax#[phone]. Patient Sukh notified. Erin Cervantes LPN August 03, 2024 12:21 PM Allergies As of Date: 08/03/2024 Noted Allergy Reaction SHELLFISH CONTAINING PRODUCTS 07/18/2017 10 - Anaphylaxis Date Reviewed: 02/25/2024 Reviewed by: Samina Aj LPN - Fully Assessed Reason for Visit: Orders [681] Primary Visit Diagnosis:Screening PSA (prostate specific antigen) [Z12.5] Order(s):PSA/PROSTATE SPECIFIC ANTIGEN SCREENING [SQPSAS1] Order #: [id number] FUTURE Prescriptions as of 08/03/2024 - atorvastatin (LIPITOR) 10 mg tablet Take 1 tablet by mouth once daily. Problem List As Of Date 08/03/2024 Noted Resolved STERILIZATION [Z30.2] 11/08/2005 PAIN BACK, LOW [M54.50] 12/11/2006 SKIN SENSATION DISTURB [R20.9] 12/11/2006 Predominant disturbance of emotions [R45.89] 12/11/2006 02/26/2024 Dizziness and giddiness [R42] 12/11/2006 02/26/2024 Allergic rhinitis [J30.9] 06/09/2017 Hyperlipidemia [E78.5] 07/23/2019 Malignant neoplasm of skin [C44.90] 03/10/2018 Well adult health check [Z00.00] 08/13/2018 Encounter for screening for malignant neoplasm *06/08/2019 Encounter Status:Closed by DONATO ROA on 08/03/24 [facility] Basophil percentageOrdered B y: Donato Roa on 02-27-2024 Bilirubin [Mass/Vol] 0.80 mg/dL 0.20-1.00 [facility] Comment on above: For patients on eltr ombopag therapy, use of Dimension Lindsay TBIL is not recommended. Chloride [Moles/Vol] 109 mmol/L 98-107 [facility] Cholesterol [Mass/Vol] 173 mg/dL <200 [facility] Comment on above: <200 mg/dL Desirable 200-240 mg/dL Borderline >240 mg/dL High Risk Glucose [Mass/Vol] 106 mg/dL 74-106 [facility] Comment on above: Fasting Glucose resu lt from 100 to 125 mg/dL suggests IMPAIRED HOMEOSTASIS per A.D.A. criteria. Potassium [Moles/Vol] 4.5 mmol/L 3.5-5.1 [facility] Protein [Mass/Vol] 7.1 g/dL 6.4-8.2 [facility] Sodium [Moles/Vol] 140 mmol/L 136-145 [facility] Triglyceride [Mass/Vol] 67 mg/dL <199 [facility] Comment on above: The drugs N-Acetylcy steine and Metamizole may falsely depress this assay.Serum Triglycerides Reference Interval Normal <150 mg/dL Borderline high 150 - 199 mg/dL High 200 - 499 mg/dL Very High > or = 500 mg/dL Laboratory - Chemistry and C hemistry - challengeOrdered By: Donato Roa on 02-27-2024 Albumin/Globulin [Mass ratio] 1.2 {ratio} 0.9-2.4 [facility] ALP [Catalytic activity/Vol] 64 U/L 45-117 [facility] ALT [Catalytic activity/Vol] 36 U/L 16-61 [facility] Cholesterol in HDL [Mass/Vol] 61 mg/dL >40 [facility] Comment on above: The drugs N-Acetylcy steine and Metamizole may falsely depress this assay. Reference Range HDL <40 mg/dL Low HDL Cholesterol HDL >or= 60 mg/dL High HDL Cholesterol Cholesterol in LDL [Mass/Vol] 99 mg/dL 0-130 [facility] CO2 [Moles/Vol] 26.0 mmol/L 21.0-32.0 [facility] Globulin (S) [Mass/Vol] 3.2 g/dL 2.2-4.2 [facility] Urea nitrogen/Creatinine [Mass ratio] 22.0 mg/mg 10-20 [facility] No Panel InformationOrdered By: Donato Roa on 02-27-2024 Estimated GFR (MDRD) Amer 90 mL/min >60 [facility] Comment on above: GFR Calc Estimated GFR (MDRD) Non-Af Amer 74 mL/min >60 [facility] Comment on above: Non- GFR Calc VLDL Cholesterol 13 mg/dL 5-40 [facility] Serum or plasma calcium jose miguel urement (mass/volume)Ordered By: Donato Roa on 02-27-2024 Calcium [Mass/Vol] 8.9 mg/dL 8.5-10.1 [facility] Serum or plasma creatinine m easurement (mass/volume)Ordered By: Donato Roa on 02-27-2024 Creatinine [Mass/Vol] 1.09 mg/dL 0.70-1.30 [facility] Comment on above: The validity of the calculated GFR & GFRAA in patients over 70 years has not been determined. Clinical correlation is essential. Serum or plasma urea nitroge n measurement (mass/volume)Ordered By: Donato Roa on 02-27-2024 Urea nitrogen [Mass/Vol] 24 mg/dL 7-18 [facility] Thin prep Papanicolaou smear with manual screeningOrdered By: Donato Roa on 02-27-2024 Thin prep Papanicolaou smear with manual screening 3.9 g/dL 3.2-5.0 [facility] Thin prep Papanicolaou smear with manual screening 22 U/L 15-37 [facility] Thin prep Papanicolaou smear with manual screening 5 5-15 [facility] Absolute lymphocyte countOrd ered By: HEALTH ASSESSMENT on 08-12-2023 Lymphocytes Auto (Unsp spec) [#/Vol] 1.83 10*3/uL 0.83-4.51 [facility] Absolute reticulocyte countO rdered By: HEALTH ASSESSMENT on 08-12-2023 Reticulocytes (Bld) [#/Vol] 0.00 10*3/uL 0-5 [facility] Basophil percentageOrdered B y: HEALTH ASSESSMENT on 08-12-2023 Basophil percentage 2.7 mg/dL 2.5-4.9 [facility] Bilirubin [Mass/Vol] 0.70 mg/dL 0.20-1.00 [facility] Comment on above: For patients on eltr ombopag therapy, use of Dimension Lindsay TBIL is not recommended. Chloride [Moles/Vol] 108 mmol/L 98-107 [facility] Cholesterol [Mass/Vol] 158 mg/dL <200 [facility] Comment on above: <200 mg/dL Desirable 200-240 mg/dL Borderline >240 mg/dL High Risk Glucose [Mass/Vol] 113 mg/dL 74-106 [facility] Comment on above: Fasting Glucose resu lt from 100 to 125 mg/dL suggests IMPAIRED HOMEOSTASIS per A.D.A. criteria. LDH [Catalytic activity/Vol] 138 U/L 87-241 [facility] Neutrophils (Bld) [#/Vol] 3.2 10*3/uL 2.0-7.7 [facility] Potassium [Moles/Vol] 4.2 mmol/L 3.5-5.1 [facility] Protein [Mass/Vol] 7.2 g/dL 6.4-8.2 [facility] Sodium [Moles/Vol] 140 mmol/L 136-145 [facility] Triglyceride [Mass/Vol] 132 mg/dL <199 [facility] Comment on above: The drugs N-Acetylcy steine and Metamizole may falsely depress this assay.Serum Triglycerides Reference Interval Normal <150 mg/dL Borderline high 150 - 199 mg/dL High 200 - 499 mg/dL Very High > or = 500 mg/dL WBC (Bld) [#/Vol] 5.9 10*3/uL 4.4-11.0 [facility] Bilirubin Test strip Ql (U)O rdered By: HEALTH ASSESSMENT on 08-12-2023 Bilirubin Ql (U) Negative Negative [facility] Blood erythrocytes count (nu mber/volume)Ordered By: HEALTH ASSESSMENT on 08-12-2023 RBC (Bld) [#/Vol] 4.99 10*6/uL 4.6-6.2 [facility] Blood hemoglobin measurement (mass/volume)Ordered By: HEALTH ASSESSMENT on 08-12-2023 Hemoglobin (Bld) [Mass/Vol] 15.4 g/dL 13.0-16.5 [facility] Blood platelet mean volumeOr dered By: HEALTH ASSESSMENT on 08-12-2023 Platelet mean volume (Bld) [Entitic vol] 9.5 fL 6.2-12.0 [facility] Determination of erythrocyte mean corpuscular volume (MCV)Ordered By: HEALTH ASSESSMENT on 08-12-2023 MCV (RBC) [Entitic vol] 92.8 fL 80-94 [facility] Direct bilirubinOrdered By: HEALTH ASSESSMENT on 08-12-2023 Bilirubin.direct [Mass/Vol] 0.21 mg/dL 0.00-0.30 [facility] Hematocrit Auto (Bld) [Volum e fraction]Ordered By: HEALTH ASSESSMENT on 08-12-2023 Hematocrit (Bld) [Volume fraction] 46.3 % 40-54 [facility] Ketones Test strip Ql (U)Ord ered By: HEALTH ASSESSMENT on 08-12-2023 Ketones Ql (U) 5 mg/dl Negative [facility] Laboratory - Chemistry and C hemistry - challengeOrdered By: HEALTH ASSESSMENT on 08-12-2023 ALP [Catalytic activity/Vol] 64 U/L 45-117 [facility] ALT [Catalytic activity/Vol] 33 U/L 16-61 [facility] Cholesterol.total/Nery sterol in HDL [Mass ratio] 2.60 {ratio} [facility] CO2 [Moles/Vol] 27.0 mmol/L 21.0-32.0 [facility] Globulin (S) [Mass/Vol] 3.4 g/dL 2.2-4.2 [facility] Urea nitrogen/Creatinine [Mass ratio] 17.0 mg/mg 10-20 [facility] Laboratory - Hematology and Cell countsOrdered By: HEALTH ASSESSMENT on 08-12-2023 Erythrocyte distribution width (RBC) [Entitic vol] 41.3 fL 35.1-43.9 [facility] Erythrocyte distribution width (RBC) [Ratio] 12.1 % 11.6-14.6 [facility] MCH (RBC) [Entitic mass] 30.9 pg 27.0-32.0 [facility] Nucleated RBC/100 WBC (Bld) [Ratio] 0 % 0-5 [facility] MCHC Auto (RBC) [Mass/Vol]Or dered By: HEALTH ASSESSMENT on 08-12-2023 MCHC (RBC) [Mass/Vol] 33.3 g/dL 32-36 [facility] Nitrite Test strip Ql (U)Ord ered By: HEALTH ASSESSMENT on 08-12-2023 Nitrite Ql (U) Negative Negative [facility] No Panel InformationOrdered By: HEALTH ASSESSMENT on 08-12-2023 Estimated GFR (MDRD) Amer 93 mL/min >60 [facility] Comment on above: GFR Calc Estimated GFR (MDRD) Non-Af Amer 77 mL/min >60 [facility] Comment on above: Non- GFR Calc No Panel InformationOrdered By: Donato Roa on 08-12-2023 Prostate Specific Antigen Screen 1.01 ng/mL 0.00-4.00 [facility] Comment on above: This test was perfor med using the TPSA assay method for the[employer] chemistry system. Values obtained with differentassay methods cannot be used interchangably.When changing PSA assays in the course of monitoring apatient, additional sequential testing should be carriedout to confirm baseline values. Platelets bldOrdered By: [facility] ASSESSMENT on 08-12-2023 Platelets (Bld) [#/Vol] 228 10*3/uL 150-450 [facility] Protein Test strip Ql (U)Ord ered By: HEALTH ASSESSMENT on 08-12-2023 Protein Ql (U) 15 mg/dl Negative [facility] Segmented neutrophils/100 WB C Auto (Bld)Ordered By: HEALTH ASSESSMENT on 08-12-2023 Segmented neutrophils/100 WBC (Bld) 55.1 % 47-70 [facility] Serum or plasma albumin jose miguel urement (mass/volume)Ordered By: HEALTH ASSESSMENT on 08-12-2023 Albumin [Mass/Vol] 3.8 g/dL 3.2-5.0 [facility] Serum or plasma albumin/glob ulin mass ratioOrdered By: HEALTH ASSESSMENT on 08-12-2023 Albumin/Globulin [Mass ratio] 1.1 {ratio} 0.9-2.4 [facility] Serum or plasma calcium jose miguel urement (mass/volume)Ordered By: HEALTH ASSESSMENT on 08-12-2023 Calcium [Mass/Vol] 8.8 mg/dL 8.5-10.1 [facility] Serum or plasma cholesterol in HDL measurement (mass/volume)Ordered By: HEALTH ASSESSMENT on 08-12-2023 Cholesterol in HDL [Mass/Vol] 60 mg/dL >40 [facility] Comment on above: The drugs N-Acetylcy steine and Metamizole may falsely depress this assay. Reference Range HDL <40 mg/dL Low HDL Cholesterol HDL >or= 60 mg/dL High HDL Cholesterol Serum or plasma cholesterol in VLDL measurement (mass/volume)Ordered By: HEALTH ASSESSMENT on 08-12-2023 Cholesterol in VLDL [Mass/Vol] 26 mg/dL 5-40 [facility] Serum or plasma creatinine m easurement (mass/volume)Ordered By: HEALTH ASSESSMENT on 08-12-2023 Creatinine [Mass/Vol] 1.06 mg/dL 0.70-1.30 [facility] Comment on above: The validity of the calculated GFR & GFRAA in patients over 70 years has not been determined. Clinical correlation is essential. Serum or plasma low density lipoprotein (LDL) cholesterol measurement (mass/volume)Ordered By: HEALTH ASSESSMENT on 08-12-2023 Cholesterol in LDL [Mass/Vol] 72 mg/dL 0-130 [facility] Serum or plasma urea nitroge n measurement (mass/volume)Ordered By: HEALTH ASSESSMENT on 08-12-2023 Urea nitrogen [Mass/Vol] 18 mg/dL 7-18 [facility] Serum or plasma uric acid me asurement (mass/volume)Ordered By: HEALTH ASSESSMENT on 08-12-2023 Urate [Mass/Vol] 5.6 mg/dL 3.5-7.2 [facility] Comment on above: The drugs N-Acetylcy steine and Metamizole may falsely depress this assay. Thin prep Papanicolaou smear with manual screeningOrdered By: HEALTH ASSESSMENT on 08-12-2023 Thin prep Papanicolaou smear with manual screening 17 U/L 15-37 [facility] Thin prep Papanicolaou smear with manual screening 5 5-15 [facility] Urine blood detectionOrdered By: HEALTH ASSESSMENT on 08-12-2023 RBC Ql (U) Negative Negative [facility] Urine clarityOrdered By: [facility] ASSESSMENT on 08-12-2023 Clarity (U) Clear Clear [facility] Urine color determinationOrd ered By: HEALTH ASSESSMENT on 08-12-2023 Color (U) Yellow Yellow [facility] Urine glucose detectionOrder ed By: HEALTH ASSESSMENT on 08-12-2023 Glucose Ql (U) Normal mg/dl Normal [facility] Urine leukocyte esterase det ection by dipstickOrdered By: HEALTH ASSESSMENT on 08-12-2023 Leukocyte esterase Test strip Ql (U) 25 /ul Negative [facility] Urine pHOrdered By: HEALTH A SSESSMENT on 08-12-2023 pH (U) 6.0 [pH] 5.0 - 8.0 [facility] Urine specific gravity measu rementOrdered By: HEALTH ASSESSMENT on 08-12-2023 Specific gravity (U) [Rel density] 1.020 1.002-1.030 [facility] Urobilinogen Auto test strip Ql (U)Ordered By: HEALTH ASSESSMENT on 08-12-2023 Urobilinogen Ql (U) 1 mg/dl Normal [facility] Basophil percentageon 2021 Bilirubin [Mass/Vol] 0.80 mg/dL 0.20-1.00 [facility] Work Phone: Comment on above: For patients on eltr ombopag therapy, use of Dimension Lindsay TBIL is not recommended. Cholesterol [Mass/Vol] 168 mg/dL <200 [facility] Work Phone: Comment on above: <200 mg/dL Desirable 200-240 mg/dL Borderline >240 mg/dL High Risk Protein [Mass/Vol] 6.8 g/dL 6.4-8.2 [facility] Work Phone: [phone] Triglyceride [Mass/Vol] 79 mg/dL [facility] Work Phone: Comment on above: The drugs N-Acetylcy steine and Metamizole may falsely depress this assay.Serum Triglycerides Reference Interval Normal <150 mg/dL Borderline high 150 - 199 mg/dL High 200 - 499 mg/dL Very High > or = 500 mg/dL Direct bilirubinon 2 Bilirubin.direct [Mass/Vol] 0.23 mg/dL 0.00-0.30 [facility] Work Phone: [phone] Laboratory - Chemistry and C hemistry - challengeon 02-27-2022 ALP [Catalytic activity/Vol] 61 U/L 45-117 [facility] Work Phone: [phone] ALT [Catalytic activity/Vol] 35 U/L 16-61 [facility] Work Phone: [phone] Globulin (S) [Mass/Vol] 3.0 g/dL 2.2-4.2 [facility] Work Phone: [phone] Serum or plasma albumin jose miguel urement (mass/volume)on 02-27-2022 Albumin [Mass/Vol] 3.8 g/dL 3.2-5.0 [facility] Work Phone: Serum or plasma cholesterol in HDL measurement (mass/volume)on 02-27-2022 Cholesterol in HDL [Mass/Vol] 67 mg/dL [facility] Work Phone: Comment on above: The drugs N-Acetylcy steine and Metamizole may falsely depress this assay. Reference Range HDL <40 mg/dL Low HDL Cholesterol HDL >or= 60 mg/dL High HDL Cholesterol Serum or plasma cholesterol in VLDL measurement (mass/volume)on 02-27-2022 Cholesterol in VLDL [Mass/Vol] 16 mg/dL 5-40 [facility] Work Phone: Serum or plasma low density lipoprotein (LDL) cholesterol measurement (mass/volume)on 02-27-2022 Cholesterol in LDL [Mass/Vol] 85 mg/dL 0-130 [facility] Work Phone: Thin prep Papanicolaou smear with manual screeningon 02-27-2022 Thin prep Papanicolaou smear with manual screening 22 U/L 15-37 [facility] Work Phone: Laboratory - Microbiology an d Antimicrobial susceptibilityon 11-12-2021 SARS-CoV-2 (COVID-19) RNA SWAPNA+probe Ql (Unsp spec) Not detected [facility] Work Phone: Vital Signs Date Time Vital Sign Value Performing Clinician Faci lity 03-29-2025 16:00-0400 Diastolic blood pressure 68 mm[Hg] Dr. Donato Roa MD Work Phone: [facility] 03-29-2025 16:00-0400 Heart rate 95 /min Dr. Donato Roa MD Work Phone: [facility] 03-29-2025 16:00-0400 SaO2% (BldA) [Mass fraction] 98 % Dr. Donato Roa MD Work Phone: [facility] 03-29-2025 16:00-0400 Systolic blood pressure 110 mm[Hg] Dr. Donato Roa MD Work Phone: [facility] 03-21-2025 16:34-0400 Body height 175.[address] Donato Roa MD Work Phone: [facility] 03-21-2025 16:34-0400 Body mass index (BMI) [Ratio] 25.2 kg/m2 Dr. Donato Roa MD Work Phone: [facility] 03-21-2025 16:34-0400 Body temperature 98.5 [degF] Dr. Donato Roa MD Work Phone: [facility] 03-21-2025 16:34-0400 Body weight 77.[address] Donato Roa MD Work Phone: [facility] 03-21-2025 16:34-0400 Diastolic blood pressure 60 mm[Hg] Dr. Donato Roa MD Work Phone: [facility] 03-21-2025 16:34-0400 Heart rate 80 /min Dr. Donato Roa MD Work Phone: [facility] 03-21-2025 16:34-0400 SaO2% (BldA) [Mass fraction] 97 % Dr. Donato Roa MD Work Phone: [facility] 03-21-2025 16:34-0400 Systolic blood pressure 100 mm[Hg] Dr. Donato Roa MD Work Phone: [facility] 08-30-2024 16:57-0400 Body height 175.3 cm Donato Roa MD Work Phone: [facility] 08-30-2024 16:57-0400 Body mass index (BMI) [Ratio] 25.7 kg/m2 Donato Roa MD Work Phone: [facility] 08-30-2024 16:57-0400 Body temperature 97.59 [degF] Donato Roa MD Work Phone: [facility] 08-30-2024 16:57-0400 Body weight 78.93 kg Donato Roa MD Work Phone: [facility] 08-30-2024 16:57-0400 Diastolic blood pressure 82 mm[Hg] Donato Roa MD Work Phone: [facility] 08-30-2024 16:57-0400 Heart rate 70 /min Donato Roa MD Work Phone: [facility] 08-30-2024 16:57-0400 Respiratory rate 18 /min Donato Roa MD Work Phone: [facility] 08-30-2024 16:57-0400 SaO2% (BldA) [Mass fraction] 97 % Donato Roa MD Work Phone: [facility] 08-30-2024 16:57-0400 Systolic blood pressure 126 mm[Hg] Donato Roa MD Work Phone: [facility] 02-25-2024 17:11-0400 Body height 175.3 cm Donato Roa MD Work Phone: [facility] 02-25-2024 17:11-0400 Body temperature 97.59 [degF] Donato Roa MD Work Phone: [facility] 02-25-2024 17:11-0400 Body weight 81.19 kg Donato Roa MD Work Phone: [facility] 02-25-2024 17:11-0400 Diastolic blood pressure 80 mm[Hg] Donato Roa MD Work Phone: [facility] 02-25-2024 17:11-0400 Heart rate 76 /min Donato Roa MD Work Phone: [facility] 02-25-2024 17:11-0400 Respiratory rate 18 /min Donato Roa MD Work Phone: [facility] 02-25-2024 17:11-0400 SaO2% (BldA) [Mass fraction] 97 % Donato Roa MD Work Phone: [facility] 02-25-2024 17:11-0400 Systolic blood pressure 128 mm[Hg] Donato Roa MD Work Phone: [facility] 08-20-2023 16:36-0400 Body height 175.3 cm Donato Roa MD Work Phone: [facility] 08-20-2023 16:36-0400 Body temperature 98.6 [degF] Donato Roa MD Work Phone: [facility] 08-20-2023 16:36-0400 Body weight 80.74 kg Donato Roa MD Work Phone: [facility] 08-20-2023 16:36-0400 Diastolic blood pressure 86 mm[Hg] Donato Roa MD Work Phone: [facility] 08-20-2023 16:36-0400 Heart rate 77 /min Donato Roa MD Work Phone: [facility] 08-20-2023 16:36-0400 Respiratory rate 14 /min Donato Roa MD Work Phone: [facility] 08-20-2023 16:36-0400 SaO2% (BldA) [Mass fraction] 98 % Donato Roa MD Work Phone: [facility] 08-20-2023 16:36-0400 Systolic blood pressure 122 mm[Hg] Donato Roa MD Work Phone: [facility] 05-12-2023 15:15-0400 Body height 175.26 cm [facility] 05-12-2023 15:15-0400 Body mass index (BMI) [Ratio] 25.1 kg/m2 [facility] 05-12-2023 15:15-0400 Body temperature 97.6 [degF] [facility] 05-12-2023 15:15-0400 Body weight 77.11 kg [facility] 05-12-2023 15:15-0400 Diastolic blood pressure 87 mm[Hg] [facility] 05-12-2023 15:15-0400 Heart rate 108 /min [facility] 05-12-2023 15:15-0400 Respiratory rate 16 /min [facility] 05-12-2023 15:15-0400 SaO2% (BldA) [Mass fraction] 96 % [facility] 05-12-2023 15:15-0400 Systolic blood pressure 134 mm[Hg] [facility] 08-21-2022 16:32-0400 Body height 175.3 cm Donato Roa MD Work Phone: [facility] 08-21-2022 16:32-0400 Body temperature 97.5 [degF] Donato Roa MD Work Phone: [facility] 08-21-2022 16:32-0400 Body weight 79.11 kg Donato Roa MD Work Phone: [facility] 08-21-2022 16:32-0400 Diastolic blood pressure 78 mm[Hg] Donato Roa MD Work Phone: [facility] 08-21-2022 16:32-0400 Heart rate 75 /min Donato Roa MD Work Phone: [facility] 08-21-2022 16:32-0400 Respiratory rate 14 /min Donato Roa MD Work Phone: [facility] 08-21-2022 16:32-0400 SaO2% (BldA) [Mass fraction] 97 % Donato Roa MD Work Phone: [facility] 08-21-2022 16:32-0400 Systolic blood pressure 126 mm[Hg] Donato Roa MD Work Phone: [facility] 02-18-2022 18:50-0400 Body temperature 96.8 [degF] Christopher Stetler DO Work Phone: [facility] 02-18-2022 18:50-0400 Body weight 78.25 kg Christopher Stetler DO Work Phone: [facility] 02-18-2022 18:50-0400 Diastolic blood pressure 74 mm[Hg] Christopher Stetler DO Work Phone: [facility] 02-18-2022 18:50-0400 Heart rate 86 /min Christopher Stetler DO Work Phone: [facility] 02-18-2022 18:50-0400 Respiratory rate 14 /min Christopher Stetler DO Work Phone: [facility] 02-18-2022 18:50-0400 Systolic blood pressure 125 mm[Hg] Christopher Stetler DO Work Phone: [facility] Encounters Encounter Date Encounter Type Care Provider Facility Start: 06-14-2025 End: 06-19-2025 Telephone encounter Donato Roa MD Work Phone: [facility] Comment on above: Orders Start: 03-29-2025 End: 03-29-2025 Patient encounter procedure Bhupinder CARTWRIGHT -[facility] Work Phone: Start: 03-29-2025 End: 03-29-[address] Donato Roa MD Work Phone: [facility] Work Phone: Start: 03-21-2025 End: 03-21-[address] Donato Roa MD Work Phone: [facility] Work Phone: Start: 03-21-2025 End: 03-21-2025 Patient encounter procedure Bhupinder Borges ND -[facility] Work Phone: Start: 03-21-2025 End: 03-21-2025 ambulatory Bhupinder CARTWRIGHT Facility:[facility] Start: 08-30-2024 End: 08-30-2024 Patient encounter status Donato Roa MD Work Phone: [facility] Work Phone: Start: 08-30-2024 End: 08-30-2024 Periodic preventive med est patient 40-64yrs Donato Roa MD Work Phone: [facility] Comment on above: Wellness examination (Primary Dx); Screening for depression; Encounter for screening examination for other mental health and behavioral disorders; Pure hypercholesterolemia Start: 08-30-2024 End: 08-30-2024 ambulatory DONATO ROA Facility:[id number] Start: 08-23-2024 ambulatory Health Risk Assessment Facility:[facility] Start: 08-23-2024 End: 08-23-2024 ambulatory Donato Roa Facility:[facility] Start: 08-03-2024 End: 08-03-2024 Telephone encounter Donato Roa MD Work Phone: [facility] Comment on above: Orders Start: 02-27-2024 End: 02-27-2024 ambulatory [facility] Work Phone: Start: 02-27-2024 End: 02-27-2024 Patient encounter procedure [facility] Work Phone: Start: 02-25-2024 End: 02-25-2024 Office outpatient visit 15 minutes Donato Roa MD Work Phone: [facility] Comment on above: Pure hypercholestero lemia (Primary Dx); Allergic rhinitis due to pollen, unspecified seasonality Start: 08-20-2023 End: 08-20-2023 Patient encounter status Donato Roa MD Work Phone: [facility] Work Phone: Start: 08-20-2023 End: 08-20-2023 Periodic preventive med est patient 40-64yrs Donato Roa MD Work Phone: [facility] Comment on above: Wellness examination (Primary Dx); Pure hypercholesterolemia; Allergic rhinitis due to pollen, unspecified seasonality Start: 08-12-2023 End: 08-12-2023 ambulatory [facility] Work Phone: Start: 08-12-2023 End: 08-12-2023 Patient encounter procedure [facility] Work Phone: Start: 08-12-2023 Registered Referred [facility] Start: 07-28-2023 Telephone encounter Donato Roa MD Work Phone: [facility] Start: 05-12-2023 End: 05-12-2023 Emergency department patient visit [facility] Start: 05-12-2023 Patient encounter procedure [facility] Prov ider [facility] Department Start: 10-31-2022 Telephone encounter Donato Roa MD Work Phone: [facility] Comment on above: Patient Question (BI LLING CHARGES) Start: 08-21-2022 End: 08-21-2022 Patient encounter status Donato Roa MD Work Phone: [facility] Start: 08-21-2022 End: 08-21-2022 Periodic preventive med est patient 40-64yrs Donato Roa MD Work Phone: [facility] Comment on above: Wellness examination (Primary Dx); Pure hypercholesterolemia Start: 08-21-2022 Telephone encounter Osama Mitr i Work Phone: [facility] Comment on above: Patient Question Start: 08-16-2022 Chart abstracting Janes Jimenez DO Work Phone: [employer] Start: 08-16-2022 Patient encounter status Jozef Jimenez DO Work Phone: [facility] Start: 08-12-2022 Patient encounter status Osama Mitri Work Phone: [facility] Start: 08-12-2022 Telephone encounter Osama Mitr i Work Phone: [facility] Comment on above: Orders Start: 02-27-2022 End: 02-27-[address] Donato Roa Work Phone: [facility] Start: 01-08-[address] [facility] Start: 11-12-2021 End: 11-12-[address] [facility] Date Procedure Procedure Detail Performing Clinician Start: 03-21-2025 Plain X-ray of tibia and fibula Dr. Donato Roa MD Work Phone: Start: 03-21-2025 X-ray of ankle, thre e or more views Dr. Donato Roa MD Work Phone: Start: 08-30-2024 Adult depression scr eening assessment Donato Roa MD Work Phone: Start: 07-17-2017 Colonoscopy Donato corley MD Work Phone: Plan of Treatment Date Care Activity Detail Author Start: 05-08-2031 Urine microalbumin profile [facility] Start: 07-17-2027 Colonoscopy Colonoscopy [facility] Start: 07-17-2027 Colorectal Cancer Screening Colorectal Cancer Screening [facility] Start: 07-17-2027 Screening for malignant neoplasm of colon [facility] Start: 08-30-2025 Anxiety Screening Anxiety Screening [facility] Start: 08-30-2025 Depression Screening Depression Screening [facility] Start: 08-24-2025 End: 08-24-2025 Patient encounter procedure 08/24/2025 4:30 PM EDT Office Visit [facility] [address] [place] [phone] Donato Roa MD [address] [place] [address] Annual Commercial Wellness [facility] Comment on above: Annual Commercial Wellness Start: 07-18-2025 Influenza vaccination Influenza Vaccine (#1) [facility] Start: 06-19-2025 End: 09-18-2025 PSA/PROSTATE SPECIFIC ANTIGEN SCREENING PSA/PROSTATE SPECIFIC ANTIGEN SCREENING Lab Routine Screening PSA (prostate specific antigen) Expected: 06/19/2025, Expires: 09/18/2025 [facility] Work Phone: Comment on above: Expected: 06/19/2025, Expires: Start: 02-28-2025 End: 02-28-2025 Patient encounter procedure 02/28/2025 5:00 PM EDT Office Visit [facility] [address] [place] [id number] Donato Roa MD [address] [place] [address] 6 Month Follow Up [facility] Comment on above: 6 Month Follow Up Start: 08-30-2024 End: 08-30-2024 Patient encounter procedure 08/30/2024 5:00 PM EDT Office Visit [facility] [address] [place] [phone] Donato Roa MD [address] [place] [address] Annual Wellness Exam [facility] Comment on above: Annual Wellness Exam Start: 08-03-2024 End: 11-02-2024 PSA/PROSTATE SPECIFIC ANTIGEN SCREENING PSA/PROSTATE SPECIFIC ANTIGEN SCREENING Lab Routine Screening PSA (prostate specific antigen) Expected: 08/03/2024, Expires: 11/02/2024 [facility] Work Phone: Comment on above: Expected: 08/03/2024, Expires: 4 Start: 07-18-2024 Influenza vaccination Influenza Vaccine (#1) [facility] Start: 02-25-2024 End: 05-26-2024 Comprehensive metabolic 2000 panel - Serum or Plasma COMPREHENSIVE METABOLIC PANEL Lab Routine Pure hypercholesterolemia Expected: 02/25/2024, Expires: 05/26/2024 [facility] Work Phone: Comment on above: Expected: 02/25/2024, Expires: 4 Start: 02-25-2024 End: 05-26-2024 Lipid 1996 panel - Serum or Plasma LIPID PANEL BASIC Lab Routine Pure hypercholesterolemia Expected: 02/25/2024, Expires: 05/26/2024 [facility] Work Phone: Comment on above: Expected: 02/25/2024, Expires: 4 Start: 11-17-2023 Behavioral Health Screening Behavioral Health Screening [facility] Start: 07-18-2023 Influenza vaccination INFLUENZA (#1) [facility] Start: 11-17-2022 DEPRESSION ASSESSMENT DEPRESSION ASSESSMENT [facility] Start: 08-13-2022 End: 10-13-2022 CBC W Auto Differential panel - Blood CBC + DIFF Lab Routine Screening for deficiency anemia Expected: 08/13/2022, Expires: 10/13/2022 [facility] Work Phone: Comment on above: Expected: 08/13/2022, Expires: 2 Start: 08-13-2022 End: 10-13-2022 Comprehensive metabolic 2000 panel - Serum or Plasma COMP METABOLIC PANEL Lab Routine Wellness examination Expected: 08/13/2022, Expires: 10/13/2022 [facility] Work Phone: Comment on above: Expected: 08/13/2022, Expires: 2 Start: 08-13-2022 End: 10-13-2022 Lipid 1996 panel - Serum or Plasma LIPID PANEL BASIC Lab Routine Lipid screening Expected: 08/13/2022, Expires: 10/13/2022 [facility] Work Phone: Comment on above: Expected: 08/13/2022, Expires: 2 Start: 08-13-2022 End: 10-13-2022 PSA/PROSTSPECAG SCRN PSA/PROSTSPECAG SCRN Lab Routine Screening PSA (prostate specific antigen) Expected: 08/13/2022, Expires: 10/13/2022 [facility] Work Phone: Comment on above: Expected: 08/13/2022, Expires: 2 Start: 07-18-2022 Influenza vaccination INFLUENZA (#1) [facility] Start: 2022 PROSTATE CANCER SCREENING DISCUSSION PROSTATE CANCER SCREENING DISCUSSION [facility] Start: 2022 Prostate specific antigen measurement Prostate Cancer Screening Discussion [facility] Start: 11-17-2021 DEPRESSION ASSESSMENT DEPRESSION ASSESSMENT [facility] Start: 2017 Pneumococcal Vaccine: 50+ (1 of 1 - PCV) Pneumococcal Vaccine: 50+ (1 of 1 - PCV) [facility] Start: 2017 SHINGRIX VACCINE (1 of 2) SHINGRIX VACCINE (1 of 2) [facility] Start: 2012 COLOGUARD (FIT-DNA) COLOGUARD (FIT-DNA) [facility] Start: 2012 Colonoscopy COLONOSCOPY [facility] Start: 2012 COLORECTAL CANCER SCREENING COLORECTAL CANCER SCREENING [facility] Start: [address] COLONOGRAPHY [facility] Start: 2012 DIABETES SCREEN DIABETES SCREEN [facility] Start: 2012 Diabetes Screening Diabetes Screening [facility] Start: 2012 FECAL OCCULT BLOOD FECAL OCCULT BLOOD [facility] Start: 2012 Prostate specific antigen measurement Prostate Cancer Screening Discussion [facility] Start: 2012 Screening for malignant neoplasm of colon [facility] Start: 2012 SIGMOIDOSCOPY SIGMOIDOSCOPY [facility] Start: 2002 Lipid 1996 panel - Serum or Plasma Lipid Screening [facility] Start: 2002 Lipid panel Lipid Screening [facility] Start: 2002 LIPID SCREEN LIPID SCREEN [facility] Start: 1986 Hepatitis B Vaccine (1 of 3 - 19+ 3-dose series) Hepatitis B Vaccine (1 of 3 - 19+ 3-dose series) [facility] Start: 1986 Urine microalbumin profile DTAP,TDAP,TD (1 - Tdap) [facility] Start: 1985 Anxiety Screening Anxiety Screening [facility] Start: 1985 Depression Screening Depression Screening [facility] Start: 1985 HEPATITIS C SCREENING HEPATITIS C SCREENING [facility] Start: 1985 Hepatitis C screening Hepatitis C Screening [facility] Start: 1985 HIV SCREENING HIV SCREENING [facility] Start: 1985 HIV screening HIV Screening [facility] Start: 1967 COVID-19 VACCINE (#1) COVID-19 VACCINE (#1) [facility] Start: 1967 HEPATITIS B (1 of 3 - 3-dose series) HEPATITIS B (1 of 3 - 3-dose series) [facility] Start: 1967 Hepatitis B Vaccine (1 of 3 - 3-dose series) Hepatitis B Vaccine (1 of 3 - 3-dose series) [facility] Patient Education ED Laceration Small or ... [facility] Work Phone: Patient referral [facility] Work Phone: [facility] Immunizations Immunization Date Immunization Notes Care Provider Fa cility 08-06-2024 Covid (Spikevax) Dr. Donato Roa MD Work Phone: [facility] 08-06-2024 influenza, seasonal, injectable, preservative free Donato Roa MD Work Phone: [facility] 08-06-2024 influenza virus vaccine, unspecified formulation Donato Roa MD Work Phone: [facility] 09-04-2023 Covid (Spikevax) [facility] 08-14-2023 influenza, injectabl e, quadrivalent, preservative free [facility] 08-14-2023 influenza virus vaccine, unspecified formulation Donato Roa MD Work Phone: [facility] 08-16-2022 influenza, injectabl e, quadrivalent, preservative free [facility] 08-16-2022 influenza, seasonal, injectable Osama Mitri Work Phone: [facility] 08-02-2022 Covid Moderna Bivale nt Booster [facility] 09-19-2021 Covid (Moderna) Dr. Donato Roa Work Phone: [facility] 09-03-2021 influenza nasal, unspecified formulation Janes Jimenez DO Work Phone: [facility] 09-03-2021 influenza virus vaccine, unspecified formulation Osama Mitri Work Phone: [facility] 08-14-2021 influenza, injectabl e, quadrivalent, preservative free [facility] 08-14-2021 influenza, seasonal, injectable Dr. Donato Roa Work Phone: [facility] 08-14-2021 influenza, seasonal, injectable, preservative free Arthur Taveras Work Phone: [facility] 05-08-2021 tetanus toxoid, reduced diphtheria toxoid, and acellular pertussis vaccine, adsorbed Dr. Donato Roa Work Phone: [facility] 12-18-2020 Covid (Moderna) Dr. Donato Roa Work Phone: [facility] 11-20-2020 Covid (Moderna) Dr. Donato Roa Work Phone: [facility] 08-22-2020 influenza nasal, unspecified formulation Janes Jimenez DO Work Phone: [facility] 08-15-2020 influenza, injectabl e, quadrivalent, preservative free [facility] 08-15-2020 influenza, seasonal, injectable Dr. Donato Roa Work Phone: [facility] 08-15-2020 influenza, seasonal, injectable, preservative free Donato Roa MD Work Phone: [facility] 08-31-2018 influenza, injectabl e, quadrivalent, preservative free [facility] 08-31-2018 influenza, seasonal, injectable Dr. Donato Roa Work Phone: [facility] 09-10-2017 influenza, injectabl e, quadrivalent, preservative free [facility] 09-10-2017 influenza, seasonal, injectable Dr. Donato Roa Work Phone: [facility] 08-15-2016 influenza, injectabl e, quadrivalent, preservative free [facility] 08-15-2016 influenza, seasonal, injectable Dr. Donato Roa Work Phone: [facility] 08-15-2016 influenza, seasonal, injectable, preservative free Donato Roa MD Work Phone: [facility] 10-02-2015 influenza, injectabl e, quadrivalent, preservative free [facility] 10-02-2015 influenza, seasonal, injectable Dr. Donato Roa Work Phone: [facility] 08-04-2014 influenza, injectabl e, quadrivalent, preservative free [facility] 08-04-2014 influenza, seasonal, injectable Dr. Donato Roa Work Phone: [facility] 08-04-2014 influenza, seasonal, injectable, preservative free Donato Roa MD Work Phone: [facility] Payers Date Payer Category Payer Unknown [id number] 2025 Unknown [id number] 2024 Self-pay [id number] 2022 Unknown [id number] 2022 Unknown MMO MMO TPA [id number] 2022-Present [address] [place] [address] PPO [id number] 2021 Private Health Insurance [id number] 2016 Unknown [id number] Unknown [id number] 2 Unknown [id number] 2 Unknown [id number] 2 Unknown [id number] 2 Unknown [id number] 2 Social History Date Type Detail Facility Start: 10-22-2019 End: 05-12-2023 Tobacco smoking status MAIS Unknown if ever smoked [facility] Start: 09-23-2019 With Family Mauro [facility] [place] Start: 1965 Sex Assigned At Male [facility] Start: 08-21-2022 End: 05-12-2023 Tobacco smoking status MAIS Never smoked tobacco [facility] Start: 01-29-2007 End: 08-30-2024 Alcohol intake Current drinker of alcohol (finding) [facility] Start: 1965 Sex Assigned At Not on file [facility] Start: 08-21-2022 Tobacco use and exposure Smokeless tobacco non-user [facility] Start: 08-21-2022 History SDOH Alcohol Frequency 4 [facility] Start: 08-21-2022 History SDOH Alcohol Std Drinks 1 [facility] Start: 08-21-2022 History SDOH Social Connections Phone 5 [facility] Start: 08-21-2022 History SDOH Social Connections Get Together 3 [facility] Start: 08-21-2022 History SDOH Social Connections Membership 2 [facility] Start: 08-21-2022 History SDOH Physica l Activity DPW 7 [facility] Start: 08-21-2022 Education 21 [facility] Start: 08-11-2022 End: 08-21-2022 Exposure to SARS-CoV-2 (event) Not sure [facility] Start: 08-21-2022 End: 08-20-2023 History of Social function [facility] Start: 08-21-2022 End: 08-20-2023 Social connection and isolation panel [facility] Do you belong to any clubs or organizations such as anabaptist groups, unions, fraternal or athletic groups, or school groups? No [facility] Are you now , , , , never or living with a partner? [facility] How often to you hav e a drink containing alcohol? 2-3 time sa week [facility] How many standard drinks containing alcohol do you have on a typical day? 1 or 2 [facility] How often do you hav e 6 or more drinks on 1 occasion? Never [facility] How hard is it for y ou to pay for the very basics like food, housing, medical care, and heating Not hard at all [facility] Do you feel stress - tense, restless, nervous, or anxious, or unable to sleep at night because your mind is troubled all the time - these days [OSQ] Not at all [facility] (I/We) worried wheth er (my/our) food would run out before (I/we) got money to buy more. Never true [facility] Are you now , , , , never or living with a partner? Living with partner [facility] How many standard drinks containing alcohol do you have on a typical day? 3 or 4 [facility] Do you feel stress - tense, restless, nervous, or anxious, or unable to sleep at night because your mind is troubled all the time - these days [OSQ] Only a little [facility] Start: 08-20-2023 Gender identity Identifies as male gender (finding) [facility] Start: 08-20-2023 Sexual orientation Heterosexual (fin valentina) [facility] How often to you hav e a drink containing alcohol? Monthly or less [facility] NEGATED: Highlighted rowStart: KENNY History of tobacco use Passive smoker [facility] Clinical Notes 12-11-2006 to 06-16-2025 Telephone Encounter - Erin Cervantes LPN - 06/16/2025 2:21 PM EDTTelephone Encounter - Erin Cervantes LPN - 06/16/2025 2:21 PM EDT Note Date & Type Note Facility 06-16-2025 Telephone encounter Note Form atting of this note might be different from the original. Please sign order. Erin Cervantes LPN June 16, 2025 2:21 PM [facility] 06-16-2025 Miscellaneous Notes Formattin g of this note might be different from the original. Please sign order. Erin Cervantes LPN June 16, 2025 2:21 PM Sukh Garcia called today. : 1965 Allergies: Shellfish Containing Products (home) [phone] (work) [phone] (cell) Reason for call: Sukh called to ask for a PSA lab order. He has an upcoming appointment with Dr Roa on 08/24/2025. His employer ([facility] [employer]) always orders annual blood tests which he will be getting done prior to his upcoming appointment. Sukh said he will bring the lab results reports along with him to the appointment to go over with Dr Roa. PSA is not included in the the tests the [facility] orders. He would like to have the PSA added please. Dr Roa please sign the order is if agreeable. Please call patient back with an answer. If approved please fax to #[phone] [facility]. Patient last appointment: 08/30/2024 Next appointment 08/2025 The patients preferred pharmacy has been captured for this encounter? no Erin Cervantes LPN documented in this encounter [facility] 06-14-2025 Telephone encounter Note Form atting of this note might be different from the original. Sukh Garcia called today. : 1965 Allergies: Shellfish Containing Products (home) [phone] (work) [phone] (cell) Reason for call: Sukh called to ask for a PSA lab order. He has an upcoming appointment with Dr Roa on 08/24/2025. His employer ([facility]) always orders annual blood tests which he will be getting done prior to his upcoming appointment. Sukh said he will bring the lab results reports along with him to the appointment to go over with Dr Roa. PSA is not included in the the tests the [facility] orders. He would like to have the PSA added please. Dr Roa please sign the order is if agreeable. Please call patient back with an answer. If approved please fax to #[phone] [facility]. Patient last appointment: 08/30/2024 Next appointment 08/2025 The patients preferred pharmacy has been captured for this encounter? no Erin Cervantes LPN [facility] 03-21-2025 Evaluation note Diagnosis Onset Date Resolution Abrasion, left lower leg, initial encounter acute March 21, 2025 4:28pm Contusion of left lower leg acute March 21, 2025 4: 28pm [facility] Work Phone: [phone]) 909-227705-05-2025 Radiology Diagnostic study note [facility] Imaging Services [address], [place] [id number] Tibia & Fibula 2 Views MR#: [id number] Acct: [id number] Name: SUKH GARCIA Rep #: [id number] : 1965 M [id number] From: Denise Santana MD PCP: Dr. Donato Roa MD Status: REG CLI Study:Tibia & Fibula 2 Views Date of Exam: 03/21/25 Exam# [id number] Ordering Dr: St rebekah Borges PA EXAM: LEFT AND FIBULA CLINICAL HISTORY: INJURY. COMPARISON: NO RELEVANT PRIOR. TECHNIQUE: AP and lateral views. FINDINGS: Bones: No fractures or other osseous abnormalities. Joints: No subluxations or dislocations. Soft tissues: Unremarkable. RAD/Tibia & Fibula 2 Views IMPRESSION: 1. No acute osseous findings. Reading Location: [facility] CC: Dr. Donato Roa MD; GABBIE Benedict ~ Health Plan Specialist: Signed [facility]05-05-2025 Radiology Diagnostic study note [facility] Imaging Services [address], [place] [id number] Ankle min 3 Views MR#: [id number] Acct: [id number] Name: SUKH GARCIA Rep #: [id number] : 1965 M 60 From: Denise Santana MD PCP: Dr. Donato Roa MD Status: REG CLI Study:Ankle min 3 Views Date of Exam: Exam# [id number] Ordering Dr: St rebekah Borges PROCEDURE: LEFT ANKLE MIN 3 VIEWS 03/21/2025 REASON FOR EXAM: PAIN TECHNIQUE: 3 views of the LEFT ankle COMPARISON: No relevant prior. FINDINGS: Bones: No fractures or other osseous abnormalities. Joints: No subluxations or dislocations. Soft tissues: Unremarkable. RAD/Ankle min 3 Views IMPRESSION: No acute osseous findings. Reading Location: [facility] CC: Dr. Donato Roa MD; GABBIE Benedict ~ Health Plan Specialist: Signed [facility]10-16-2024 NoteHNO ID: [id number] Author: DONATO ROA MD Service: ? Author Type: Physician Type: Progress Notes Filed: 09/01/2024 10:10 Note Text: Subjective Sukh Garcia is a 59 year old male. Sukh presents today for his annual wellness visit. Additionally follows up for his hyperlipidemia. He continues on Lipitor for treatment. He is tolerating this well. Recent lab work completed through his employee health program shows well-controlled cholesterol. Review of Systems Constitutional: Negative. HENT: Negative. Eyes: Negative. Respiratory: Negative. Cardiovascular: Negative. Gastrointestinal: Negative. Endocrine: Negative. Genitourinary: Negative. Musculoskeletal: Negative. Skin: Negative. Allergic/Immunologic: Negative. Neurological: Negative. Hematological: Negative. Psychiatric/Behavioral: Negative. PAST SURGICAL HISTORY Procedure Laterality Date VASECTOMY UNI/BI SPX W/POSTOP SEMEN EXAMS 11/08/05 PAST MEDICAL HISTORY Diagnosis Date Allergic rhinitis Insomnia FAMILY HISTORY Problem Relation Age of Onset other (tongue cancer) Mother other (Bladder Cancer) Father Bladder Social History Tobacco Use Smoking status: Never Passive exposure: Never Smokeless tobacco: Never Vaping Use Vaping status: Never Used Substance Use Topics Alcohol use: Yes Comment: OCCASSIONALLY Drug use: No ALLERGIES Allergen Reactions Shellfish Containin* Anaphylaxis MEDICATIONS: atorvastatin (LIPITOR) 10 mg tablet Take 1 tablet by mouth once daily. Allergies, past surgical history, family history and past medical history were reviewed per this encounter. Medications were reviewed and verified. 02/25/2024 08/30/2024 INTAKE PAIN ASSESSMENT Are you having pain associated with your visit today? No No If pain assessment is 0, no action needed. If pain assessment is positive, please see assessment and plain. Objective BP 126/82 (BP Site: Left Arm, BP Position: Sitting, BP Cuff Size: Regular Adult) Pulse 70 Temp 36.4 ?C (97.6 ?F) (Temporal) Resp 18 Ht 175.3 cm (5' 9) Wt 78.9 kg (174 lb) SpO2 97% BMI 25.70 kg/m? Physical Exam Vitals reviewed. Constitutional: Appearance: Normal appearance. HENT: Head: Normocephalic and atraumatic. Nose: Nose normal. Eyes: Extraocular Movements: Extraocular movements intact. Pupils: Pupils are equal, round, and reactive to light. Cardiovascular: Rate and Rhythm: Normal rate and regular rhythm. Pulmonary: Effort: Pulmonary effort is normal. Breath sounds: Normal breath sounds. Abdominal: General: Bowel sounds are normal. Palpations: Abdomen is soft. Musculoskeletal: General: Normal range of motion. Cervical back: Normal range of motion and neck supple. Skin: General: Skin is warm and dry. Capillary Refill: Capillary refill takes less than 2 seconds. Neurological: General: No focal deficit present. Mental Status: He is alert and oriented to person, place, and time. Mental status is at baseline. Psychiatric: Mood and Affect: Mood normal. Behavior: Behavior normal. Assessment and Plan Encounter Diagnosis ICD-10-CM 1. Wellness examination Z00.00 2. Screening for depression Z13.31 DEPRESSION SCREENING 3. Encounter for screening examination for other mental health and behavioral disorders Z13.39 ANXIETY SCREENING 4. Pure hypercholesterolemia E78.00 Improved on Lipitor. All open preventative health maintenance topics discussed with patient in detail. This includes risks and benefits regarding vaccines, cancer screening, healthy life style, and diet. Continue present medications. Check labs as above. Monitor blood pressure regularly. Exercise as tolerated. Maintain good diet. Follow-up in 6 months. [facility]10-16-2024 History of Present illness Narrative* Donato Roa MD - 09/01/2024 9:30 AM EDT Subjective Sukh Garcia is a 59 year old male. Sukh presents today for his annual wellness visit. Additionally follows up for his hyperlipidemia. He continues on Lipitor for treatment. He is tolerating this well. Recent lab work completed through his employee health program shows well-controlled cholesterol. Review of Systems Constitutional: Negative. HENT: Negative. Eyes: Negative. Respiratory: Negative. Cardiovascular: Negative. Gastrointestinal: Negative. Endocrine: Negative. Genitourinary: Negative. Musculoskeletal: Negative. Skin: Negative. Allergic/Immunologic: Negative. Neurological: Negative. Hematological: Negative. Psychiatric/Behavioral: Negative. PAST SURGICAL HISTORY Procedure Laterality Date VASECTOMY UNI/BI SPX W/POSTOP SEMEN EXAMS 11/08/05 PAST MEDICAL HISTORY Diagnosis Date Allergic rhinitis Insomnia FAMILY HISTORY Problem Relation Age of Onset other (tongue cancer) Mother other (Bladder Cancer) Father Bladder Social History Tobacco Use Smoking status: Never Passive exposure: Never Smokeless tobacco: Never Vaping Use Vaping status: Never Used Substance Use Topics Alcohol use: Yes Comment: OCCASSIONALLY Drug use: No ALLERGIES Allergen Reactions Shellfish Containin* Anaphylaxis MEDICATIONS: atorvastatin (LIPITOR) 10 mg tablet Take 1 tablet by mouth once daily. Allergies, past surgical history, family history and past medical history were reviewed per this encounter. Medications were reviewed and verified. 02/25/2024 08/30/2024 INTAKE PAIN ASSESSMENT Are you having pain associated with your visit today? No No If pain assessment is 0, no action needed. If pain assessment is positive, please see assessment and plain. Objective BP 126/82 (BP Site: Left Arm, BP Position: Sitting, BP Cuff Size: Regular Adult) Pulse 70 Temp 36.4 C (97.6 F) (Temporal) Resp 18 Ht 175.3 cm (5' 9) Wt 78.9 kg (174 lb) SpO2 97% BMI 25.70 kg/m Physical Exam Vitals reviewed. Constitutional: Appearance: Normal appearance. HENT: Head: Normocephalic and atraumatic. Nose: Nose normal. Eyes: Extraocular Movements: Extraocular movements intact. Pupils: Pupils are equal, round, and reactive to light. Cardiovascular: Rate and Rhythm: Normal rate and regular rhythm. Pulmonary: Effort: Pulmonary effort is normal. Breath sounds: Normal breath sounds. Abdominal: General: Bowel sounds are normal. Palpations: Abdomen is soft. Musculoskeletal: General: Normal range of motion. Cervical back: Normal range of motion and neck supple. Skin: General: Skin is warm and dry. Capillary Refill: Capillary refill takes less than 2 seconds. Neurological: General: No focal deficit present. Mental Status: He is alert and oriented to person, place, and time. Mental status is at baseline. Psychiatric: Mood and Affect: Mood normal. Behavior: Behavior normal. Assessment and Plan Encounter Diagnosis ICD-10-CM 1. Wellness examination Z00.00 2. Screening for depression Z13.31 DEPRESSION SCREENING 3. Encounter for screening examination for other mental health and behavioral disorders Z13.39 ANXIETY SCREENING 4. Pure hypercholesterolemia E78.00 Improved on Lipitor. All open preventative health maintenance topics discussed with patient in detail. This includes risks and benefits regarding vaccines, cancer screening, healthy life style, and diet. Continue present medications. Check labs as above. Monitor blood pressure regularly. Exercise as tolerated. Maintain good diet. Follow-up in 6 months. * Samina Aj LPN - 08/30/2024 5:00 PM EDT [employer] Hepatitis C Screening declined HIV Screening declined Hepatitis B Vaccine(1 of 3 - 19+ 3-dose series) declined Lipid Screening Diabetes Screening Shingrix Vaccine(1 of 2) declined Prostate Cancer Screening Discussion declined Influenza Vaccine(1) [facility] Covid-19 Vaccine( season)[facility] Samina jA LPN August 30, 2024 5:00 PM [facility] NoteHNO ID: [id number] Author: SAMINA AJ LPN Service: ? Author Type: LICENSED NURSE Type: Progress Notes Filed: 09/01/2024 10:10 Note Text: [employer] MAINTENANCE Hepatitis C Screening declined HIV Screening declined Hepatitis B Vaccine(1 of 3 - 19+ 3-dose series) declined Lipid Screening Diabetes Screening Shingrix Vaccine(1 of 2) declined Prostate Cancer Screening Discussion declined Influenza Vaccine(1) [facility] Covid-19 Vaccine( season)[facility] Samina Aj LPN August 30, 2024 5:00 [facility] Tele[facility] encounter Note * Telephone Encounter - Erin Cervantes LPN - 08/03/2024 12:20 PM EDT PSA order faxed to [facility] fax#[phone]. Patient Sukh notified. Erin Cervantes LPN August 03, 2024 12:21 PM [facility]09-17-2024 Miscellaneous Notes* Telephone Encounter - Erin Cervantes LPN - 08/03/2024 12:20 PM EDT PSA order faxed to [facility] fax#[phone]. Patient Sukh notified. Erin Cervantes LPN August 03, 2024 12:21 PM * Telephone Encounter - Donato Roa MD - 08/03/2024 10:59 AM EDT Order is signed * Telephone Encounter - Erin Cervantes LPN - 08/03/2024 10:28 AM EDT Sukh Rebecca Garcia called today. : 1965 Allergies: Shellfish Containing Products (home) [phone] (work) [phone] (cell) Reason for call: Sukh called to ask for a PSA lab order. He has an upcoming appointment with Dr Roa on 08/30/2024.His employer ([employer]) always orders annual blood tests which he will be gettingdone prior to his upcoming appointment. Sukh said he will bring the lab results reports along with him to the appointment to go over with Dr Roa. PSA is not included in the the tests [facility] orders. He would like to have the PSA added please. Dr Roa please sign the order is if agreeable. Please call patient back with an answer. If approved please fax to #[phone] [facility]. Patient last appointment: 02/25/2024 Next appointment 08/30/2024 The patients preferred pharmacy has been captured for this encounter? no Erin Cervantes LPN documented [facility] Telephone encounter Note * Telephone Encounter - Donato Roa MD - 08/03/2024 10:59 AM EDT Order is signed [facility] Telephone encounter Note* Telephone Encounter - Erin Cervantes LPN - 08/03/2024 10:28 AM EDT Sukh Garcia called today. : 1965 Allergies: Shellfish Containing Products (home) [phone] (work) [phone] (cell) Reason for call: Sukh called to ask for a PSA lab order. He has an upcoming appointment with Dr Roa on 08/30/2024.His employer ([employer]) always orders annual blood tests which he will be gettingdone prior to his upcoming appointment. Sukh said he will bring the lab results reports along with him to the appointment to go over with Dr Roa. PSA is not included in the the tests [facility] orders. He would like to have the PSA added please. Dr Roa please sign the order is if agreeable. Please call patient back with an answer. If approved please fax to #[phone] [facility]. Patient last appointment: 02/25/2024 Next appointment 08/30/2024 The patients preferred pharmacy has been captured for this encounter? no Erin Cervantes LPN [facility]04-11-[facility]24 History of Present illness Narrative* Donato Roa MD - 02/26/2024 11:25 AM EDT Patient presents today for follow-up for multiple medical problems. See list. His chronic medical problems been stable. He is compliant with his medications. He has no new complaints today.This note was created using [employer]. Subjective Sukh Garcia is a 58 year old male. Review of Systems Constitutional: Negative. HENT: Negative. Eyes: Negative. Respiratory: Negative. Cardiovascular: Negative. Gastrointestinal: Negative. Endocrine: Negative. Genitourinary: Negative. Musculoskeletal: Negative. Skin: Negative. Allergic/Immunologic: Negative. Neurological: Negative. Hematological: Negative. Psychiatric/Behavioral: Negative. Objective BP 128/80 (BP Site: Left Arm, BP Position: Sitting, BP Cuff Size: Regular Adult) Pulse 76 Temp 36.4 C (97.6 F) (Temporal) Resp 18 Ht 175.3 cm (5' 9) Wt 81.2 kg (179 lb) SpO2 97% BMI 26.43 kg/m Physical Exam Vitals reviewed. Constitutional: Appearance: Normal appearance. HENT: Head: Normocephalic and atraumatic. Nose: Nose normal. Eyes: Extraocular Movements: Extraocular movements intact. Pupils: Pupils are equal, round, and reactive to light. Cardiovascular: Rate and Rhythm: Normal rate and regular rhythm. Pulmonary: Effort: Pulmonary effort is normal. Breath sounds: Normal breath sounds. Abdominal: General: Bowel sounds are normal. Palpations: Abdomen is soft. Musculoskeletal: General: Normal range of motion. Cervical back: Normal range of motion and neck supple. Skin: General: Skin is warm and dry. Capillary Refill: Capillary refill takes less than 2 seconds. Neurological: General: No focal deficit present. Mental Status: He is alert and oriented to person, place, and time. Mental status is at baseline. Psychiatric: Mood and Affect: Mood normal. Behavior: Behavior normal. Assessment and Plan Encounter Diagnosis ICD-10-CM 1. Pure hypercholesterolemia E78.00 LIPID PANEL BASIC COMPREHENSIVE METABOLIC PANEL 2. Allergic rhinitis due to pollen, unspecified seasonality J30.1 Continue present medications. Check labs as above. Monitor blood pressure regularly. Exercise as tolerated. Maintain good diet. Follow-up in 6 months. Donato Roa MD * Samina Aj LPN - 02/25/2024 5:11 PM EDT Patient is in office for 6 month exam. Patient has no current complaints or concerns. No refills needed Samina Aj LPN February 25, 2024 5:15 PM documented in this encounterWestern [facility]10-[facility]23 History of Present illness Narrative* Donato Roa MD - 08/20/2023 5:18 PM EDT Subjective Sukh Garcia is a 58 year old male. Sukh presents today for his annual wellness visit Review of Systems Constitutional: Negative. HENT: Negative. Eyes: Negative. Respiratory: Negative. Cardiovascular: Negative. Gastrointestinal: Negative. Endocrine: Negative. Genitourinary: Negative. Musculoskeletal: Negative. Skin: Negative. Allergic/Immunologic: Negative. Neurological: Negative. Hematological: Negative. Psychiatric/Behavioral: Negative. PAST SURGICAL HISTORY Procedure Laterality Date VASECTOMY UNI/BI SPX W/POSTOP SEMEN EXAMS 11/08/05 PAST MEDICAL HISTORY Diagnosis Date Allergic rhinitis Insomnia FAMILY HISTORY Problem Relation Age of Onset other (tongue cancer) Mother other (Bladder Cancer) Father Bladder Social History Tobacco Use Smoking status: Never Passive exposure: Never Smokeless tobacco: Never Vaping Use Vaping Use: Never used Substance Use Topics Alcohol use: Yes Comment: OCCASSIONALLY Drug use: No ALLERGIES Allergen Reactions Shellfish Containin* Anaphylaxis MEDICATIONS: atorvastatin (LIPITOR) 10 mg tablet Take 1 tablet by mouth once daily. Allergies, past surgical history, family history and past medical history were reviewed per this encounter. Medications were reviewed and verified. Objective BP 122/86 (BP Site: Right Arm, BP Position: Sitting) Pulse 77 Temp 37 C (98.6 F) (Temporal) Resp 14 Ht 175.3 cm (5' 9) Wt 80.7 kg (178 lb) SpO2 98% BMI 26.29 kg/m Physical Exam Vitals reviewed. Constitutional: Appearance: Normal appearance. HENT: Head: Normocephalic and atraumatic. Nose: Nose normal. Eyes: Extraocular Movements: Extraocular movements intact. Pupils: Pupils are equal, round, and reactive to light. Cardiovascular: Rate and Rhythm: Normal rate and regular rhythm. Pulmonary: Effort: Pulmonary effort is normal. Breath sounds: Normal breath sounds. Abdominal: General: Bowel sounds are normal. Palpations: Abdomen is soft. Musculoskeletal: General: Normal range of motion. Cervical back: Normal range of motion and neck supple. Skin: General: Skin is warm and dry. Capillary Refill: Capillary refill takes less than 2 seconds. Neurological: General: No focal deficit present. Mental Status: He is alert and oriented to person, place, and time. Mental status is at baseline. Psychiatric: Mood and Affect: Mood normal. Behavior: Behavior normal. Assessment and Plan Encounter Diagnosis ICD-10-CM 1. Wellness examination Z00.00 2. Pure hypercholesterolemia E78.00 3. Allergic rhinitis due to pollen, unspecified seasonality J30.1 All open preventative health maintenance topics discussed with patient in detail. This includes risks and benefits regarding vaccines, cancer screening, healthy life style, and diet. Donato Roa MD * Erin Cervantes LPN - 08/20/2023 4:20 PM EDT Patient Sukh is here today for,his annual wellness visit Sukh is feeling well today and has no complaints He does have a wellness form that needs signed so he can take with him. Erin Cervantes LPN August 20, 2023 4:39 PM documented in this encounterWestern [facility] Hospital06-26-[address] [facility] May 12, 2023 4:22pm Note Date/Time May 12, 2023 4:22 pm [facility] Medical Records Department [address] [place] [address] Emergency Department Summary 05/12/23 MR#: [id number] Acct: [id number] Name: SUKH GARCIA Rep #:[id number] : 1965 58 From: Raghav Rivera DO PCP: Dr. Donato Roa MD Status:REG ER Location: ED HPI History of Present Illness Chief Complaint: Laceration Narrative Narrative: 58-year-old male presenting with laceration to the scalp. He believes his tetanus is up-to-date. 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 Initially it was bleeding quite profusely. Able to get a dressing in place. He denies LOC. Denies dizziness, visual complaints, nausea. No neck pain. [facility] Medical History Hyperlipemia Home Medications atorvastatin 10 mg tablet 10 mg PO QHS 09/23/19 [History Last Taken Unknown] Allergy/AdvReac Type Severity Reaction Status Date / Time shellfish derived Allergy Angioedema Verified 05/12/23 15:17 Social History Smoking Status: Never smoker ROS ROS ED Constitutional Constitutional ED: Denies chills, fever(s) or sweats Eyes Eyes: Denies blurry vision or change in vision ENT ENT ED: Denies ear pain or sore throat Cardiovascular Cardiovascular: Denies chest pain, palpitations or racing heartbeat Respiratory/Chest Respiratory/Chest: Denies cough, dyspnea or sputum Gastrointestinal Gastrointestinal: Denies abdominal pain, constipation, diarrhea, nausea or vomiting Genitourinary Genitourinary ED: Denies dysuria, hematuria or urinary frequency Musculoskeletal Musculoskeletal: Denies arthralgias, myalgias or neck pain Integumentary Reports other Details: 3 cm midline laceration and the scalp anteriorly. Bleeding controlled. ; Denies abscess, Abrasions or rash Neurologic Neurologic: Denies headache(s), paresthesias or weakness Psychiatric Psychiatric: Denies anxiety, depression, suicidal ideation or suicidal thoughts Endocrine Endocrinology: Denies polydipsia or polyuria EXAM Physical Exam Const Vital Signs: 05/12/23 15:15 Temperature 97.6 F L Temperature Source Temporal Pulse Rate 108 H Respiratory Rate 16 Blood Pressure 134/87 H Blood Pressure Mean 102 Pulse Ox 96 Oxygen Delivery Method Room Air Positive well nourished HEENT HEENT Narrative: 3 cm midline laceration and the scalp anteriorly. Bleeding controlled. Chest Wall inspection of chest normal Resp normal respiratory effort Cardio regular rhythm Rate: regular rate Extremity normal to inspection Neuro oriented x3, CN's II-XII intact bilaterally and moves all extremities Sensorium / Orientation: alert Motor Exam: strength 5/5 throughout Psych mental status grossly normal Skin Skin Narrative: 3 cm scalp laceration with well-controlled bleeding. No skull deformity. The wounds are approximated. MDM MDM MDM Narrative Medical decision making narrative: Patient has laceration in the midline of the anterior scalp. Is well approximated 3 cm long. No active bleeding. His tetanus is up-to-date. I do not think alexandra or sutures will benefit this. His wound to be cleaned and dressing was placed. He is amenable this plan. [facility] Impression: 1. 3 cm scalp laceration Discharge Plan Triage Chief Complaint: Laceration ED Provider: Raghav Rivera Dx/Rx/DC Orders Instructions: ED Laceration Small or ... Prescriptions: No Action atorvastatin 10 MG tablet 10 mg PO QHS Primary Care Provider: Donato Roa Referrals: Donato Roa MD [Primary Care Provider] - Disposition Disposition: Home, Self Care What to do if you have Problems For any increased pain, shortness of breath, bleeding, nausea or vomiting, chestpain, or any unexpected problems, contact your Primary Care Provider. Call [facility] ([phone]) or report to the closest Emergency Room. Call 911 if necessary. 05/12/231621 <Electronically signed by Raghav Rivera DO> Cosigner Signature (if applicable): CC: Dr. Donato Roa MD ~ Signed [facility] Work Phone: 1(831) 387-163012-19-2022 Miscellaneous Notes* Telephone Encounter - Dipika Griffith LPN - 11/04/2022 9:19 AM EST Left message for patient with Dr Roa's response. Dipika Griffith LPN November 04, 2022 9:19 AM * Telephone Encounter - Donato Roa MD - 11/02/2022 12:49 PM EST I have nothing to do with billing. I have no idea what the extra charges are for. I do not have access to that. He would need to check with somebody in the billing department * Telephone Encounter - Dipika Griffith LPN - 10/31/2022 4:26 PM EST Patient called asking why there is an extra charge of $182 on on his EOB. He has not rec'd the billyet. He contacted [facility] billing dept. They were unable to give him any answers. Is there a way for you to check and see if you charged anything extra for his visit on 08/21/2022? If not, is there someone else I can have patient get in contact with? Please advise. Dipika Griffith LPN October 31, 2022 4:46 PM documented in this encounterWestern [facility] Hospital10-06-2022 History of Present illness Narrative* Donato Roa MD - 08/22/2022 2:50 PM EDT This note was created using [employer]. Subjective Sukh Garcia is a 57 year old male. Presents today for his annual wellness exam. He is doing well.He has no new complaints today. Review of Systems Constitutional: Negative. HENT: Negative. Eyes: Negative. Respiratory: Negative. Cardiovascular: Negative. Gastrointestinal: Negative. Endocrine: Negative. Genitourinary: Negative. Musculoskeletal: Negative. Skin: Negative. Allergic/Immunologic: Negative. Neurological: Negative. Hematological: Negative. Psychiatric/Behavioral: Negative. Objective BP 126/78 (BP Site: Right Arm, BP Cuff Size: Large Adult) Pulse 75 Temp 36.4 C (97.5 F) (Temporal) Resp 14 Ht 175.3 cm (5' 9) Wt 79.1 kg (174 lb 6.4 oz) SpO2 97% BMI 25.75 kg/m Physical Exam Vitals reviewed. Constitutional: Appearance: Normal appearance. HENT: Head: Normocephalic and atraumatic. Nose: Nose normal. Eyes: Extraocular Movements: Extraocular movements intact. Pupils: Pupils are equal, round, and reactive to light. Cardiovascular: Rate and Rhythm: Normal rate and regular rhythm. Pulmonary: Effort: Pulmonary effort is normal. Breath sounds: Normal breath sounds. Abdominal: General: Bowel sounds are normal. Palpations: Abdomen is soft. Musculoskeletal: General: Normal range of motion. Cervical back: Normal range of motion and neck supple. Skin: General: Skin is warm and dry. Capillary Refill: Capillary refill takes less than 2 seconds. Neurological: General: No focal deficit present. Mental Status: He is alert and oriented to person, place, and time. Mental status is at baseline. Psychiatric: Mood and Affect: Mood normal. Behavior: Behavior normal. Assessment and Plan Sukh was seen today for physical. Diagnoses and all orders for this visit: Wellness examination Pure hypercholesterolemia Other orders - atorvastatin (LIPITOR) 10 mg tablet; Take 1 tablet by mouth once daily. Patient had his lab work previously completed at [facility]. Lab work reviewed with patient. documented in this encounterWestern [facility] Hospital09-27-2022 Miscellaneous Notes* Telephone Encounter - Samina Aj LPN - 08/13/2022 9:51 AM EDT Patient notified Samina Aj LPN August 13, 2022 9:52 AM * Telephone Encounter - Samina Aj LPN - 08/12/2022 2:13 PM EDT [facility] Lab Patient stated that he has to have labs drawn for working at [employer] this week. Patient requesting Dr. Roa to order whatever labs he would like ordered for wellness visit 08-21-2022 beforehand so he does not need to have blood drawn twice. Also requesting a PSA Samina Aj LPN August 12, 2022 2:14 PM * Telephone Encounter - Marbella Martinez - 08/12/2022 12:46 PM EDTSummary: PSA Lab Patient is asking for a PSA lab to be generated to go along with his already existig blood work? 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 Phone: Evaluation noteNo assessment information available [facility] Work Phone: Evaluation note* Diagnosis Wellness examination- Primary Lipid screening Screening for lipoid disorders Screening for deficiency anemia Screening for other and unspecified deficiency anemia Screening PSA (prostate specific antigen) Special screening for malignant neoplasm of prostate documented in this encounter [facility] note* Diagnosis Wellness examination- Primary Pure hypercholesterolemia documented in this encounter [facility] note* Diagnosis Wellness examination- Primary Pure hypercholesterolemia Allergic rhinitis due to pollen, unspecified seasonality documented in this encounter [facility] note* Diagnosis Pure hypercholesterolemia- Primary Allergic rhinitis due to pollen, unspecified seasonality documented in this encounter [facility] note* Diagnosis Screening PSA (prostate specific antigen)- Primary Special screening for malignant neoplasm of prostate documented in this encounter [facility] note* Diagnosis Wellness examination- Primary Screening for depression Encounter for screening examination for other mental health and behavioral disorders Pure hypercholesterolemia documented in this encounter [facility] note* Diagnosis Screening PSA (prostate specific antigen)- Primary Special screening for malignant neoplasm of prostate documented in this encounter [facility] HospitalReason for referral (narrative)No reason for referral information availableWKeenan Private Hospital Work Phone: Advance Directives No Advanced Directives Records Found Advance Directive Response Recorded Date/ Time Living Will No September 23 4:18pm Power of Exec. Creative Director No September 23, 2019 4:18pm Advance Directive Response Recorded Date/ Time Living Will No May 12, 2023 3:18pm Power of Exec. Creative Director No May 12 3:18pm Chief Complaint and Reason for Visit Chief Complaint lac Chief Complaint lac [employer]OYEE [employer] Chief Complaint Admit Date pain- LEFT ANKLE/ ADD TIB/FIB March 21, 2 025 4:07pm L ANKLE INJURY/ [facility] March 21, 2025 4:28pm Reason for Visit Admit Date Abrasion, left lower leg, initial encoun ter March 21, 2025 4:28pm Contusion of left lower leg March 21 4:28pm Chief Complaint Admit Date pain- LEFT ANKLE/ ADD TIB/FIB March 21, 2 025 4:07pm L ANKLE INJURY/ [facility] March 21, 2025 4:28pm L ANKLE / [facility] March 29, 2025 3:58p m Summary Purpose Family History No Family History Records FoundNo Family History Records Found Additional Source Comments Goals (unrecognized section and content) Goals may be documented in a n alternate sectionGoals may be documented in an alternate sectionGoals may be documented in an alternate sectionGoals may be documented in an alternate sectionGoals may be documented in an alternate sectionGoals may be documented in an alternate section Source Comments (unrecognize d section and content) In the event this informatio n is protected by the Federal Confidentiality of Alcohol and Drug Abuse Patient Records regulations: The Federal rules restrict any use of the information to criminally investigate or prosecute any alcohol or drug abuse patient.[facility] HospitalIn the event this information is protected by the Federal Confidentiality of Alcohol and Drug Abuse Patient Records regulations: The Federal rules restrict any use of the information to criminally investigate or prosecute any alcohol or drug abuse patient.[facility] HospitalIn the event this information is protected by the Federal Confidentiality of Alcohol and Drug Abuse Patient Records regulations: The Federal rules restrict any use of the information to criminally investigate or prosecute any alcohol or drug abuse patient.[facility] HospitalIn the event this information is protected by the Federal Confidentiality of Alcohol and Drug Abuse Patient Records regulations: The Federal rules restrict any use of the information to criminally investigate or prosecute any alcohol or drug abuse patient.[facility] HospitalIn the event this information is protected by the Federal Confidentiality of Alcohol and Drug Abuse Patient Records regulations: The Federal rules restrict any use of the information to criminally investigate or prosecute any alcohol or drug abuse patient.[facility] HospitalIn the event this information is protected by the Federal Confidentiality of Alcohol and Drug Abuse Patient Records regulations: The Federal rules restrict any use of the information to criminally investigate or prosecute any alcohol or drug abuse patient.[facility] HospitalIn the event this information is protected by the Federal Confidentiality of Alcohol and Drug Abuse Patient Records regulations: The Federal rules restrict any use of the information to criminally investigate or prosecute any alcohol or drug abuse patient.[facility] HospitalIn the event this information is protected by the Federal Confidentiality of Alcohol and Drug Abuse Patient Records regulations: The Federal rules restrict any use of the information to criminally investigate or prosecute any alcohol or drug abuse patient.[facility] HospitalIn the event this information is protected by the Federal Confidentiality of Alcohol and Drug Abuse Patient Records regulations: The Federal rules restrict any use of the information to criminally investigate or prosecute any alcohol or drug abuse patient.[facility] HospitalIn the event this information is protected by the Federal Confidentiality of Alcohol and Drug Abuse Patient Records regulations: The Federal rules restrict any use of the information to criminally investigate or prosecute any alcohol or drug abuse patient.[facility] HospitalIn the event this information is protected by the Federal Confidentiality of Alcohol and Drug Abuse Patient Records regulations: The Federal rules restrict any use of the information to criminally investigate or prosecute any alcohol or drug abuse patient.[facility] HospitalIn the event this information is protected by the Federal Confidentiality of Alcohol and Drug Abuse Patient Records regulations: The Federal rules restrict any use of the information to criminally investigate or prosecute any alcohol or drug abuse patient.[facility] Reason for Visit (unrecogniz ed section and content) Reason Comments Orders Reason Comments Patient Question Reason Comments Physical CPE pt would like to discuss lab results Reason Comments Patient Question BILLING CHARGES Reason Comments Yearly Exam Wellness CPE Specialty Diagnoses / Procedures Referred By Contac t Referred To Contact Family Medicine / FAMILY MEDICINE Diagnoses Annual physical exam Yearly Wellness Procedures OFFICE/OUTPATIENT ESTABLISHED HIGH MDM 40-54 MIN EST WELL VISIT Donato Roa MD [address] [place] [address] Donato Roa MD [address] [place] [address] Referral ID Status Reason Start Date Expiration Date Visits Re quested Visits Authorized [id number] Closed 07/31/2023 11/16/2023 1 1 Reason Comments 6 Month Exam Reason Comments Wellness Care Teams (unrecognized sec tion and content) Dice Dealer Relationship Specialty Start Date End Date Mitri, Osama PCP - General 01/26/07 Dice Dealer Relationship Specialty Start Date End Date Mitri, Osama PCP - General 01/26/07 Dice Dealer Relationship Specialty Start Date End Date Mitri, Osama PCP - General 01/26/07 Dice Dealer Relationship Specialty Start Date End Date Mitri, Osama PCP - General 01/26/07 Dice Dealer Relationship Specialty Start Date End Date Donato Roa MD [address] [place], [place] [phone] PCP - General Family Medicine 10/31/22 Team Status: Active Member Role Status Dates Dr. Donato Roa MD Family Provider Active Dr. Donato Roa MD Primary Care Provider Active Team Status: Inactive Member Role Status Dates Dr. Donato Roa MD Primary Care Provider Active Dr. Raghav Rivera DO Emergency Provider Active Dice Dealer Relationship Specialty Start Date End Date Donato Roa MD [address] [place], [place] [id number] PCP - General Family Medicine 10/31/22 Dice Dealer Relationship Specialty Start Date End Date Donato Roa MD [address] [place] [address] PCP - General Family Medicine 10/31/22 Team Status: Inactive Member Role Status Dates Dr. Donato Roa MD Primary Care Provider Active Dr. Raghav Rivera DO Attending Provider, Emergency Provider Active Team Status: Active Member Role Status Dates Dr. Donato Roa MD Primary Care Provider Active Health Risk Assessment Attending Provider, Referring P [email or web address] Active Team Status: Inactive Member Role Status Dates Dr. Donato Roa MD Primary Care Prov ider, Attending Provider, Referring Provider Active Dice Dealer Relationship Specialty Start Date End Date Donato Roa MD [address] [place] [address] PCP - General Family Medicine 10/31/22 Sudarshan Shelton MD [address] [place] [address] Gastroenterology 07/17/17 Dice Dealer Relationship Specialty Start Date End Date Donato Roa MD [address] [place] [address] PCP - General Family Medicine 10/31/22 Sudarshan Shelton MD [address] [place] [address] Gastroenterology 07/17/17 Dice Dealer Relationship Specialty Start Date End Date Donato Roa MD [address] [place] [address] PCP - General Family Medicine 10/31/22 Sudarshan Shelton MD [address] [place] [address] Gastroenterology 07/17/17 Team Status: Inactive Member Role Status Dates Dr. Donato Roa MD Primary Care Provider Active Start: March 21, 2025 End: March 21, 2025 GABBIE Ramirez Attending Provider Active Start: March 21, 2025 End: March 21, 2025 GABBIE Ramirez Referring Provider Active Start: March 21, 2025 End: March 21, 2025 Team Status: Inactive Member Role Status Dates Dr. Donato Roa MD Primary Care Provider Active Start: March 21, 2025 End: March 21, 2025 Dr. Donato Roa MD Referring Provider Active Start: March 21, 2025 End: March 21, 2025 GABBIE Ramirez Attending Provider Active Start: March 21, 2025 End: March 21, 2025 Team Status: Inactive Member Role Status Dates Dr. Donato Roa MD Primary Care Provider Active Start: March 29, 2025 End: March 29, 2025 Dr. Donato Roa MD Referring Provider Active Start: March 29, 2025 End: March 29, 2025 GABBIE Ramirez Attending Provider Active Start: March 29, 2025 End: March 29, 2025 Dice Dealer Relationship Specialty Start Date End Date Donato Roa MD [address] [place] [address] PCP - General Family Medicine 10/31/22 Sudarshan Shelton MD [address] [facility] [address] [place] [address] Gastroenterology 07/17/17 (unrecognized sect ion and content) No Status Records FoundNo Status Records Found INFORMATION SOURCE (unrecogn ized section and content) DATE CREATED AUTHOR 05/08/2025 [facility] DATE CREATED AUTHOR AUTHOR'S ORGANIZ ATION 07/08/2025 [facility] nter FOR RECORDS PERTAINING TO PATIENTS WHO ARE OR HAVE BEEN ENROLLED IN A CHEMICAL DEPENDENCY/SUBSTANCEABUSE PROGRAM, SOME INFORMATION MAY BE OMITTED. This clinical summary was aggregated from multiple sources. Caution should be exercised in using it in the provision of clinical care. This summary normalizes information from multiple sources, and as a consequence, information in this document may materially change the coding, format and clinical context of patient data. In addition, data may be omitted in some cases. CLINICAL DECISIONS SHOULD BE BASED ON THE PRIMARY CLINICAL RECORDS. [employer] [facility]. provides no warranty or guarantee of the accuracy or completeness of information in this document.
[2025-07-10 01:53] LABS: Anion Gap 16 (5-15); BUN 19 mg/dL (4-19); BUN/Creat Ratio 19.0 RATIO (10-20); Calcium,Total 8.5 mg/dL (7.6-11.0); Carbon Dioxide 22.3 mmol/L (21.0-32.0); Chloride 103 mmol/L (98-108); Estimated Creatinine Clearance 79.72 ml/min (50-250); Glucose 123 mg/dL (70-99); Magnesium 2.2 mg/dL (1.5-2.2); Potassium 4.0 mmol/L (3.3-5.1)
[2025-07-10 02:00] VITALS: BP 120/83; PULSE 112; RESP 14; O2SAT 97
--- NOTE | 2025-07-10 02:52 | EX.ED.DYSGE1 ---
HPI History of Present Illness Chief Complaint: Allergic Reaction Informant: patient and spouse/S.O. Narrative Narrative: Patient is a 60-year-old male with a past medical history of hyperlipidemia. He states he ate a large amount of shrimp this evening. He reports roughly an hour later he began to feel like his lips were tingling and slightly swelling. As time passed he noticed a rash across his chest and back. Then there was increased swelling to his lips and slightly to his tongue. He states there was no other new exposure and then the shrimp. However with worsening symptoms he presents for evaluation Patient also states that he got up and went walking into the kitchen when he became lightheaded and dizzy and had a syncopal event caused him to fall and strike his head on a table. [facility] Medical History (Updated 07/10/25 @ 04:[address] Timi Trujillo DO) Abrasion, left lower leg, initial encounter Contusion of left lower leg Hyperlipemia Home Medications ?Medication ?Instructions ?Recorded ?Last Taken ?Type atorvastatin 10 mg tablet 10 mg PO QHS 03/21/25 Unknown History epinephrine 0.3 mg/0.3 mL 0.3 mg (0.3 mL) IM Q10M PRN PRN 07/10/25 Unknown Rx injection, auto-injector anaphylaxis #2 ea prednisone 20 mg tablet 40 mg (2 x 20 mg) PO DAILY 5 days 07/10/25 Unknown Rx #10 tabs Allergy/AdvReac Type Severity Reaction Status Date / Time shellfish derived Allergy Angioedema Verified 03/29/25 16:00 Social History Smoking Status: Never smoker ROS ROS ED Constitutional Constitutional ED: Denies chills or fever(s) Eyes Eyes: Denies blurry vision or change in vision ENT ENT ED: Denies sore throat Cardiovascular Cardiovascular: Reports other Details: Positive syncope ; Denies chest pain Respiratory/Chest Respiratory/Chest: Denies cough or dyspnea Gastrointestinal Gastrointestinal: Denies abdominal pain, diarrhea, nausea or vomiting Musculoskeletal Musculoskeletal: Denies back pain or neck pain Integumentary Reports other Details: Positive scalp laceration Neurologic Neurologic: Reports headache(s) Hematologic/Lymphatic Hematologic/Lymphatic: Denies easy bleeding or easy bruising Allergic/Immunologic Allergic/Immunologic ED: Reports mouth swelling, tongue swelling and urticaria EXAM Physical Exam Const Vital Signs: 07/10/25 00:22 07/10/25 01:22 07/10/25 02:00 Temperature 98.2 F Temperature Source Oral Pulse Rate 94 106 H 112 H Respiratory Rate 20 H 16 14 Blood Pressure 118/87 H 126/81 H 120/83 H Blood Pressure Mean 97 96 95 Pulse Ox 97 97 97 Oxygen Delivery Method Room Air Room Air Room Air 07/10/25 03:00 Temperature 98.6 F Temperature Source Pulse Rate 109 H Respiratory Rate 24 H Blood Pressure 120/83 H Blood Pressure Mean 95 Pulse Ox 97 Oxygen Delivery Method Positive well nourished and well developed General Appearance ED: well developed HEENT HEENT Narrative: Patient has a curvilinear subcutaneous layer deep along the upper right occipital portion of the scalp. The wound is 5 cm in length with minimal ooze of blood and no retained foreign body No signs of depressed or basilar skull fracture Patient does have mild to moderate swelling of the upper and lower lip. There is trace/faint swelling of the tongue Eyes PERRL and EOMs intact bilaterally Neck supple Neck Narrative: No bony deformity or step-off of the cervical spine; no midline pain with palpation Patient can move his neck in all directions without pain Resp normal respiratory effort and clear to auscultation bilaterally Resp Narrative: No nasal flaring or retractions. No accessory muscle use. No stridor. Patient can talk in full sentence without dyspnea with speech Cardio regular rhythm Rate: tachycardic and other Back/Spine Back/Spine Narrative: No bony deformity or step-off of the thoracic or lumbar spine; no midline tenderness to palpation Extremity normal to inspection Extremity Narrative: Pelvis is stable there is no shortening or external rotation of either lower extremity Patient is able to move all extremities without difficulty No signs of long bone injury such as joint effusion or bony deformity Neuro oriented x3, CN's II-XII intact bilaterally and no sensory deficits noted Sensorium / Orientation: alert Motor Exam: strength 5/5 throughout Psych mental status grossly normal Skin Skin Narrative: Scalp laceration with swelling of the lips as documented above MDM MDM MDM Narrative Medical decision making narrative: Patient arrived to the ER with stable vitals and in no acute respiratory distress. However he reported eating shrimp and then developing lip and tongue swelling. Symptoms are consistent with angioedema. In order to ensure he does not progress to worsening angioedema leading to airway compromise patient was given IM epinephrine as well as IV Solu-Medrol and Pepcid. Patient took 50 mg of Benadryl at home and therefore this was not provided. With him striking his head and having a bout of syncope there is concern for traumatic subarachnoid or subdural hemorrhage or cervical compression fracture. CTs were obtained secondary to this. Basic labs were obtained to look for acute blood loss anemia electrolyte abnormality or acute kidney injury. He was placed on the monitoring and evaluation advisor to ensure no cardiac dysrhythmia. Workup revealed leukocytosis at 14.7 which I feel is related to stress response as there is no report of sick symptoms or signs of infection on exam. Imaging studies revealed no signs of acute trauma. He was watched in the ER for multiple hours and there was an improvement of the tongue and lip swelling. Patient reported feeling better and he had no signs of respiratory distress or hypoxia. Therefore his scalp laceration was sutured as documented below and as there is been no rebound of symptoms or progression or airway compromise he is otherwise safe for discharge The patient's scalp laceration was cleaned with chlorhexidine. It was anesthetized with 10 mL of 2% lidocaine with epinephrine and local fashion. The wound was copiously irrigated with normal saline. Then seventeen 4-0 Ethilon sutures were placed in simple interrupted fashion. This brought the wound edges together well with good approximation. Patient tolerated the procedure well without complication. History & Record Review Discussion w/independent historian: Patient and Significant other Lab Data Attestation: I reviewed the patient's lab results. Labs: Laboratory Results - last 24 hr 07/10/25 00:26 WBC 14.7 H RBC 5.26 Hgb 15.7 Hct 46.7 MCV 88.8 MCH 29.8 MCHC 33.6 RDW Std Deviation 43.8 RDW Coeff of Giorgio 13.4 Plt Count 271 MPV 9.5 Immature Gran % (Auto) 0.400 Neut % (Auto) 80.3 H Lymph % (Auto) 14.1 L [place] % (Auto) 4.4 Eos % (Auto) 0.4 Baso % (Auto) 0.4 Absolute Neuts (auto) 11.8 H Absolute Lymphs (auto) 2.08 Nucleated RBC % 0 Sodium 141 Potassium 4.0 Chloride 103 Carbon Dioxide 22.3 Anion Gap 16 H BUN 19 Creatinine 1.01 Estim Creat Clear Calc 79.72 Est GFR (MDRD) Non-Af 86 BUN/Creatinine Ratio 19.0 Glucose 123 H Calcium 8.5 Magnesium 2.2 Radiography Diagnostic Testing: Clinical Impression(s) from Imaging Studies Brain CT 07/10/25 00:35 IMPRESSION: No acute intracranial process. Reading Location: [facility] Cervical Spine CT 07/10/25 00:35 IMPRESSION: No acute cervical fracture or subluxations. Reading Location: [facility] Discharge Plan Triage Chief Complaint: Allergic Reaction ED Provider: Timi Trujillo Dx/Rx/DC Orders Clinical Impression: Allergic reaction, Laceration of occipital scalp, Hyperlipidemia, Angioedema Instructions: ED General Allergic Reactions, ED Angioedema, ED Laceration Scalp Stitches or [place] Prescriptions: New prednisone 20 mg tablet 40 mg PO DAILY 5 Days Qty: 10 0RF epinephrine 0.3 mg/0.3 mL auto-injector 0.3 mg IM Q10M PRN PRN (Reason: anaphylaxis) Qty: 2 2RF Rx Instructions: for 2 doses No Action atorvastatin 10 mg tablet 10 mg PO QHS Primary Care Provider: Donato Patricia Referrals: Donato Patricia MD [Primary Care Provider] - Activity Restrictions/Additional Instructions: Please see your family doctor or return to the ER in 10 to 14 days for suture removal. Continue prednisone once a day for the next 5 days to help with allergic reaction and rash. You can take 2 [id number] Benadryl at a time up to 3 times a day if needed as well. If you have reexposure and develop tongue or lip swelling or difficulty breathing or swallowing use your EpiPen and present to the ER for further evaluation. Print Language: Ghanaian Disposition Disposition: Home, Self Care Discharge Date/Time: 07/10/25 03:03
[2025-07-10 03:00] VITALS: BP 120/83; PULSE 109; RESP 24; TEMP 37; O2SAT 97
== END 2025-07-10 03:03 | disposition home or self-care (01) ==
PROVIDERS: Emergency Provider Emergency Medicine; PCP Family Medicine; Visit Provider Emergency Medicine
DX: T78.3XXA Angioneurotic edema, initial encounter (principal); S01.01XA Laceration without foreign body of scalp, initial encounter; R55 Syncope and collapse; W01.190A Fall on same level from slipping, tripping and stumbling with subsequent striking against furniture, initial encounter; E78.5 Hyperlipidemia, unspecified; Z79.899 Other long term (current) drug therapy
CPT/HCPCS: 12002; 70450; 72125; 80048; 83735; 85025; 96361; 96365; 96372; 96375; 99284; A4216

== ENCOUNTER → 2025-08-05 | Outpatient (CLI) | payer OTHER, SELFPAY ==
--- OUTSIDE RECORDS SUMMARY | 2025-07-29 07:03 | XMS RPT_ITS | CCD ---
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 Donato Roa Primary Care Provider [phone] Dr. Donato Roa Referring Provider Dr. Hipolito Padilla Attending Provider Arthur Taveras Primary Care Provider [phone] Donato Roa MD Primary Care Provider Donato Roa MD Primary Care Provider Sudarshan Shelton MD Unavailable Donato Roa MD Primary Care Provider Donato Roa MD Primary Care Provider Dr. Donato Roa MD Primary Care Provider Bhupinder Cardona Attending Provider Bhupinder Cardona Referring Provider Dr. Donato Roa MD Referring Provider DONATO ROA Attending Unavailab DONATO Hernández Primary Care UnavailDr. Timi Bethea DO Emergency Provider Donato Roa Primary Care Unavailable Bhupinder Cardona Attending Unavailable Donato Roa Referring Unavailable Donato Roa Primary Care Unavailable Bhupinder Cardona Attending Unavailable Donato Roa Referring Unavailable Bhupinder Cardona Attending Unavailable Bhupinder Cardona Referring Unavailable Donato Roa Primary Care Unavailable Donato Roa Primary Care Unavailable Donato Roa Attending Unavailable Donato Roa Referring Unavailable Andes, Timi Attending Unavailable Donato Roa Primary Care Unavailable Assessment, Health Risk Attending Unavaila ble Assessment, Health Risk Referring Unavaila ble Donato Roa Primary Care Unavailable Allergies Allergy Classification Reported Allergen(s) Allergy Type Date of Onset Reaction(s) Facility (3 sources) Shellfish; Translations: [shellfish derived] Allergy to substance 10-22-2019 Angioedema [facility] (13 sources) Shellfish; Translations: [SHELLFISH CONTAINING PRODUCTS] Drug Allergy 07-18-2017 Anaphylaxis [facility] Medications Current Medications Medication Drug Class(es) Dates Sig (Normalized) Sig (Original) [id number] 0.3 ml EPINEPHrine 1 mg/ml auto-injector (1 source) alpha-Adrenergic Agonist, beta-Adrenergic Agonist, Catecholamine Start: 07-10-2025 Epinephrine 0.3 mg/0.3 mL auto-injector Active 0.3 mg IM EVERY 10 MINUTES NEEDED as needed for anaphylaxis 2 2 July 10, 2025 12:00am for 2 doses predniSONE 20 mg oral tablet (1 source) Start: 07-10-2025 take 2 tablets by mouth once daily Prednisone 20 mg tablet Active 40 mg PO DAILY 10 5 0 July 10, 2025 12:00am Completed/Discontinued Medications Medication Drug Class(es) Dates Sig (Normalized) Sig (Original) atorvastatin 10 mg oral tablet (20 sources) HMG-CoA Reductase Inhibitor Start: 07-23-2019 End: 03-21-2025 take 1 tablet by mouth at bedtime Atorvastatin 10 MG tablet Discontinued 10 mg PO AT BEDTIME September 23, 2019 1:00am March 21, 2025 4:31pm Comment on above: Take by mouth. Take 1 tablet by [facility] once daily. cefadroxil 500 mg oral capsule (7 sources) Cephalosporin Antibacterial Start: 09-23-2019 End: 09-29-2019 take 1 capsule by mouth twice daily Cefadroxil 500 MG capsule Discontinued 500 mg PO TWICE A DAY 10 5 0 September 23, 2019 1:00am September 27, 2019 1:00am September 29, 2019 1:07am cephalexin 500 mg oral capsule (3 sources) Cephalosporin Antibacterial Start: 03-21-2025 End: 07-10-2025 take 1 capsule by mouth three times daily Cephalexin 500 mg capsule Discontinued 500 mg PO THREE TIMES A DAY 21 0 March 21, 2025 12:00am July 10, 2025 12:25am LORazepam 0.5 mg oral tablet (8 sources) [...] Classification Problem Date Documented Da te Episodic/Chronic Allergic reactions (2 sources) Allergic reaction; Translations: [Allergy, unspecified, initial encounter] Onset: 07-15-2025 07-10-2025 Episodic Disorders of lipid metabolism (20 sources) Hyperlipidemia; Translations: [Hyperlipidemia, unspecified] Onset: 07-23-2019 08-16-2022 Chronic Fracture of upper limb (20 sources) Open fracture of distal phalanx of little finger; Translations: [Nondisplaced fracture of distal phalanx of left little finger, initial encounter for open fracture] 10-25-2019 Episodic Open wounds of head; neck; and trunk (1 source) Scalp laceration; Translations: [Laceration without foreign body of scalp, initial encounter] 07-10-2025 Episodic Other injuries and conditions due to external causes (1 source) Unspecified injury of left lower leg, initial encounter; Translations: [Unspecified injury of left lower leg, initial encounter] Onset: 05-05-2025 Episodic Other non-traumatic joint disorders (1 source) Pain in left ankle and joints of left foot; Translations: [Pain in left ankle and joints of left foot] Onset: 05-05-2025 Episodic Other upper respiratory disease (12 sources) Allergic rhinitis; Translations: [Allergic rhinitis, unspecified] Onset: 06-09-2017 08-16-2022 Chronic Other upper respiratory disease (2 sources) Allergic rhinitis due to pollen; Translations: [Allergic rhinitis due to pollen] 08-24-2023 Chronic Superficial injury; contusion (8 sources) Contusion of left lower leg; Translations: [Contusion of left lower leg, initial encounter] Onset: 05-05-2025 03-21-2025 Episodic Unclassified (6 sources) Abrasion, left lower leg, initial encounter 03-21-2025 Past or Other Problems Problem Classification Problem Date Documented Da te Episodic/Chronic Conditions associated with dizziness or vertigo (12 sources) Dizziness and giddiness; Translations: [Dizziness and giddiness] Onset: 12-11-2006 Resolved: 02-26-2024 12-11-2006 Episodic Contraceptive and procreative management (20 sources) Patient encounter status; Translations: [Encounter for sterilization] Onset: 11-08-2005 11-08-2005 Episodic Miscellaneous mental health disorders (12 sources) Emotional problems; Translations: [Other symptoms and signs involving emotional state] Onset: 12-11-2006 Resolved: 02-26-2024 12-11-2006 Episodic Other nervous system disorders (13 sources) Skin sensation disturbance; Translations: [Unspecified disturbances of skin sensation] Onset: 12-11-2006 12-11-2006 Episodic Other non-epithelial cancer of skin (12 sources) Malignant neoplasm of skin; Translations: [Unspecified [...] Spondylosis; intervertebral disc disorders; other back problems (13 sources) Low back pain; Translations: [Lumbago] Onset: 12-11-2006 12-11-2006 Episodic Results Test Name Value Interpretation Reference Range Facility Absolute lymphocyte countOrd ered By: Timi Trujillo on 07-10-2025 Lymphocytes Auto (Unsp spec) [#/Vol] 2.08 10*3/uL 0.83-4.51 [facility] Absolute neutrophil countOrd ered By: Timi Trujillo on 07-10-2025 Neutrophils (Bld) [#/Vol] 11.8 10*3/uL High 2.0-7.7 [facility] Anion gap in Serum or Plasma Ordered By: Timi Trujillo on 07-10-2025 Anion gap [Moles/Vol] 16 mmol/L High 5-15 [facility] Automated lymphocyte count a s percentage of total leukocytesOrdered By: Timi Trujillo on 07-10-2025 Lymphocytes/100 WBC Auto (Unsp spec) 14.1 % Low 19-41 [facility] BUN/creatinine ratioOrdered By: Timi Trujillo on 07-10-2025 Urea nitrogen/Creatinine [Mass ratio] 19.0 mg/mg 10- [facility] Basic Metabolic Profile (BMP )on 07-10-2025 BUN/CRE 19.0 RATIO Normal 10- [facility] Comment on above: Performed By: #### L 100.0100, L500.2500, L501.5200 #### [facility] [address] [place], [address] Calcium [Mass/Vol] 8.5 mg/dL Normal 7.6-11.0 [facility] Comment on above: Performed By: #### L 100.0100, L500.2500, L501.5200 #### [facility] [address] [place], [address] Chloride [Moles/Vol] 103 mmol/L Normal 98-108 [facility] Comment on above: Performed By: #### L 100.0100, L500.2500, L501.5200 #### [facility] [address] [place], [address] CO2 [Moles/Vol] 22.3 mmol/L Normal 21.0-32.0 [facility] Comment on above: Performed By: #### L 100.0100, L500.2500, L501.5200 #### [facility] [address] [place], [address] Creatinine [Mass/Vol] 1.01 mg/dL Normal 0.70-1.20 [facility] Comment on above: Performed By: #### L 100.0100, L500.2500, L501.5200 #### [facility] [address] [place], [address] ECRCL 79.72 ml/min Normal 50-250 [facility] Comment on above: Performed By: #### L 100.0100, L500.2500, L501.5200 #### [facility] [address] [place], [address] GAP 16 High 5-15 [facility] Comment on above: Performed By: #### L 100.0100, L500.2500, L501.5200 #### [facility] [address] [place], [address] GFR/1.73 sq M.predicted among non-blacks MDRD (S/P/Bld) [Vol rate/Area] 86 mL/min/{1.73_m2} Normal >60 [facility] Comment on above: Result Comment: mL/m in/1.73m2 CKD-EPI Creatinine Equation (2020) Performed By: #### L 100.0100, L500.2500, L501.5200 #### [facility] [address] [place], [address] Glucose [Mass/Vol] 123 mg/dL High 70-99 [facility] Comment on above: Performed By: #### L 100.0100, L500.2500, L501.5200 #### [facility] [address] [place], [address] Potassium [Moles/Vol] 4.0 mmol/L Normal 3.3-5.1 [facility] Comment on above: Performed By: #### L 100.0100, L500.2500, L501.5200 #### [facility] [address] [place], [address] Sodium [Moles/Vol] 141 mmol/L Normal 133-145 [facility] Comment on above: Performed By: #### L 100.0100, L500.2500, L501.5200 #### [facility] [address] [place], [address] Urea nitrogen [Mass/Vol] 19 mg/dL Normal 4-19 [facility] Comment on above: Performed By: #### L 100.0100, L500.2500, L501.5200 #### [facility] [address] [place], [address] Basophil percentageOrdered B y: Timi Trujillo on 07-10-2025 Basophils/100 WBC (Bld) 0.4 % 0-1 [facility] Brain/Head without Contrasto n 07-10-2025 Brain/Head without Contrast [facility] Imaging Services [address] [place] [address] Brain/Head without Contrast MR#: [id number] Acct: [id number] Name: SUKH GARCIA Rep #: [id number] : 1965 M 60 From: Hayde Anna PCP: Dr. Donato Roa MD Status: REG ER Study: Brain/Head without Contrast Date of Exam: 06/18 03/11 Exam# [id number] Ordering Dr: Timi Trujillo DO PROCEDURE: BRAIN/HEAD WITHOUT CONTRAST 07/10/2025 REASON FOR EXAM: HEAD INJURY TECHNIQUE: BRAIN/HEAD WITHOUT CONTRAST Coronal and Sagittal reconstruction series were provided. One or more dose reduction techniques were used (e.g., Automated exposure control, adjustment of the mA and/or kV according to patient size, use of iterative reconstruction technique. RADIATION DOSE SUMMARY: DLP: 1244 mGycm COMPARISON: None FINDINGS: There is no acute infarct, intracranial hemorrhage, or mass effect. There is no hydrocephalus or significant midline shift. No acute, depressed calvarial fractures. No large scalp hematomas. The paranasal sinuses are clear. CT/Brain/Head without Contrast IMPRESSION: No acute intracranial process. Reading Location: [facility] CC: Dr. Donato Roa MD; Timi Andes, DO Key Punch Operator: Signed Normal [facility] CBC W/Diff, Automatedon 08-2 -2024 Absolute Lymph 2.08 X10 3/uL Normal 0.83-4.51 [facility] Comment on above: Performed By: #### L 100.0100, L500.2500, L501.5200 #### [facility] [address] [place], [address] Absolute Neut 11.8 X10 3/uL High 2.0-7.7 [facility] Comment on above: Performed By: #### L 100.0100, L500.2500, L501.5200 #### [facility] [address] [place], [address] Basophils/100 WBC (Bld) 0.4 % Normal 0-1 [facility] Comment on above: Performed By: #### L 100.0100, L500.2500, L501.5200 #### [facility] [address] [place], [address] Eosinophils/100 WBC (Bld) 0.4 % Normal 0-5 [facility] Comment on above: Performed By: #### L 100.0100, L500.2500, L501.5200 #### [facility] [address] [place], [address] Erythrocyte distribution width (RBC) [Ratio] 13.4 % Normal 11.6-14.6 [facility] Comment on above: Performed By: #### L 100.0100, L500.2500, L501.5200 #### [facility] [address] [place], [address] Hematocrit (Bld) [Volume fraction] 46.7 % Normal 40-54 [facility] Comment on above: Performed By: #### L 100.0100, L500.2500, L501.5200 #### [facility] [address] [place], [address] Hemoglobin (Bld) [Mass/Vol] 15.7 g/dL Normal 13.0-16.5 [facility] Comment on above: Performed By: #### L 100.0100, L500.2500, L501.5200 #### [facility] [address] [place], [address] IG% 0.400 Normal 0.0-0.9 [facility] Comment on above: Result Comment: IG% - Immature Granulocytes (promyelocytes, myelocytes and metamyelocytes) > 1% indicates that a LEFT SHIFT is Present. Performed By: #### L 100.0100, L500.2500, L501.5200 #### [facility] [address] [place], [address] Lymphocytes/100 WBC (Bld) 14.1 % Low 19-41 [facility] Comment on above: Performed By: #### L 100.0100, L500.2500, L501.5200 #### [facility] [address] [place], [address] MCH (RBC) [Entitic mass] 29.8 pg Normal 27.0-32.0 [facility] Comment on above: Performed By: #### L 100.0100, L500.2500, L501.5200 #### [facility] [address] [place], [address] MCHC (RBC) [Mass/Vol] 33.6 g/dL Normal 32-36 [facility] Comment on above: Performed By: #### L 100.0100, L500.2500, L501.5200 #### [facility] [address] [place], [address] MCV (RBC) [Entitic vol] 88.8 fL Normal 80-94 [facility] Comment on above: Performed By: #### L 100.0100, L500.2500, L501.5200 #### [facility] [address] [place], [address] Monocytes/100 WBC (Bld) 4.4 % Normal 0-10 [facility] Comment on above: Performed By: #### L 100.0100, L500.2500, L501.5200 #### [facility] [address] [place], [address] Neutrophils/100 WBC (Bld) 80.3 % High 47-70 [facility] Comment on above: Performed By: #### L 100.0100, L500.2500, L501.5200 #### [facility] [address] [place], [address] Nucleated RBC (Bld) [#/Vol] 0 10*3/uL Normal 0-5 [facility] Comment on above: Performed By: #### L 100.0100, L500.2500, L501.5200 #### [facility] [address] [place], [address] Platelet mean volume (Bld) [Entitic vol] 9.5 fL Normal 6.2-12.0 [facility] Comment on above: Performed By: #### L 100.0100, L500.2500, L501.5200 #### [facility] [address] [place], [address] Platelets (Bld) [#/Vol] 271 10*3/uL Normal 150-450 [facility] Comment on above: Performed By: #### L 100.0100, L500.2500, L501.5200 #### [facility] [address] [place], [address] RBC (Bld) [#/Vol] 5.26 10*6/uL Normal 4.6-6.2 [facility] Comment on above: Performed By: #### L 100.0100, L500.2500, L501.5200 #### [facility] [address] [place], [address] RDW SD 43.8 fl Normal 35.1-43.9 [facility] Comment on above: Performed By: #### L 100.0100, L500.2500, L501.5200 #### [facility] [address] [place], [address] WBC (Bld) [#/Vol] 14.7 10*3/uL High 4.4-11.0 [facility] Comment on above: Performed By: #### L 100.0100, L500.2500, L501.5200 #### [facility] [address] [place], [address] Carbon dioxide, total [Moles /volume] in Central venous bloodOrdered By: Timi Trujillo on 07-10-2025 CO2 [Moles/Vol] 22.3 mmol/L 21.0-32.0 [facility] Chloride assayOrdered By: Martita Trujillo on 07-10-2025 Chloride [Moles/Vol] 103 mmol/L 98-108 [facility] Emergency Department Summary on 07-10-2025 Emergency Department Summary [facility] Medical Records Department [address] [place] [place] [address] Emergency Department Summary 07/10/25 MR#: [id number] Acct: [id number] Name: SUKH GARCIA Rep #: [id number] : 1965 [id number] From: Timi Trujillo DO PCP: Dr. Donato Roa MD Status:DEP ER Location: ED HPI History of Present Illness Chief Complaint: Allergic Reaction Informant: patient and spouse/S.O. Narrative Narrative: Patient is a 60-year-old male with a past medical history of hyperlipidemia. He states he ate a large amount of shrimp this evening. He reports roughly an hour later he began to feel like his lips were tingling and slightly swelling. As time passed he noticed a rash across his chest and back. Then there was increased swelling to his lips and slightly to his tongue. He states there was no other new exposure and then the shrimp. However with worsening symptoms he presents for evaluation Patient also states that he got up and went walking into the kitchen when he became lightheaded and dizzy and had a syncopal event caused him to fall and strike his head on a table. [facility] Medical History (Updated 07/10/25 @ 04:[address] Timi Trujillo, DO) Abrasion, left lower leg, initial encounter Contusion of left lower leg Hyperlipemia Home Medications ???Medication ???Instructions ???Recorded ???Last Taken ???Type atorvastatin 10 mg tablet 10 mg PO QHS 03/21/25 Unknown Hist ory epinephrine 0.3 mg/0.3 mL 0.3 mg (0.3 mL) IM Q10M PRN PRN Unknown Rx injection, auto-injector anaphylaxis #2 ea prednisone 20 mg tablet 40 mg (2 x 20 mg) PO DAILY 5 days 07/10/25 Unknown Rx #10 tabs Allergy/AdvReac Type Severity Reaction Status Date / Time shellfish derived Allergy Angioedema Verified 03/29/25 16:00 Social History Smoking Status: Never smoker ROS ROS ED Constitutional Constitutional ED: Denies chills or fever(s) Eyes Eyes: Denies blurry vision or change in vision ENT ENT ED: Denies sore throat Cardiovascular Cardiovascular: Reports other Details: Positive syncope ; Denies chest pain Respiratory/Chest Respiratory/Chest: Denies cough or dyspnea Gastrointestinal Gastrointestinal: Denies abdominal pain, diarrhea, nausea or vomiting Musculoskeletal Musculoskeletal: Denies back pain or neck pain Integumentary Reports other Details: Positive scalp laceration Neurologic Neurologic: Reports headache(s) Hematologic/Lymphatic Hematologic/Lymphatic: Denies easy bleeding or easy bruising Allergic/Immunologic Allergic/Immunologic ED: Reports mouth swelling, tongue swelling and urticaria EXAM Physical Exam Const Vital Signs: 07/10/25 00:22 07/10/25 01:22 07/10/25 02:00 Temperature 98.2 F Temperature Source Oral Pulse Rate 94 106 H 112 H Respiratory Rate 20 H 16 14 Blood Pressure 118/87 H 126/81 H 120/83 H Blood Pressure Mean 97 96 95 Pulse Ox 97 97 97 Oxygen Delivery Method Room Air Room Air Room Air 07/10/25 03:00 Temperature 98.6 F Temperature Source Pulse Rate 109 H Respiratory Rate 24 H Blood Pressure 120/83 H Blood Pressure Mean 95 Pulse Ox 97 Oxygen Delivery Method Positive well nourished and well developed General Appearance ED: well developed HEENT HEENT Narrative: Patient has a curvilinear subcutaneous layer deep along the upper right occipital portion of the scalp. The wound is 5 cm in length with minimal ooze of blood and no retained foreign body No signs of depressed or basilar skull fracture Patient does have mild to moderate swelling of the upper and lower lip. There is trace/faint swelling of the tongue Eyes PERRL and EOMs intact bilaterally Neck supple Neck Narrative: No bony deformity or step-off of the cervical spine; no midline pain with palpation Patient can move his neck in all directions without pain Resp normal respiratory effort and clear to auscultation bilaterally Resp Narrative: No nasal flaring or retractions. No accessory muscle use. No stridor. Patient can talk in full sentence without dyspnea with speech Cardio regular rhythm Rate: tachycardic and other Back/Spine Back/Spine Narrative: No bony deformity or step-off of the thoracic or lumbar spine; no midline tenderness to palpation Extremity normal to inspection Extremity Narrative: Pelvis is stable there is no shortening or external rotation of either lower extremity Patient is able to move all extremities without difficulty No signs of long bone injury such as joint effusion or bony deformity Neuro oriented x3, CN's II-XII intact bilaterally and no sensory deficits noted Sensorium / Orientation: alert Motor Exam: strength 5/5 throughout Psych mental status grossly normal S (more content not included)... Normal [facility] Eosinophil percentageOrdered By: Timi Trujillo on 07-10-2025 Eosinophils/100 WBC (Bld) 0.4 % 0-5 [facility] Erythrocyte distribution wid th ratioOrdered By: Timi Trujillo on 07-10-2025 Erythrocyte distribution width (RBC) [Ratio] 13.4 % 11.6-14.6 [facility] Erythrocyte distribution wid th standard deviationOrdered By: Timi Trujillo on 07-10-2025 Erythrocyte distribution width (RBC) [Ratio] 43.8 fl 35.1-43.9 [facility] Glomerular filtration rate ( GFR) estimation/1.73 sq m using serum, plasma, or whole bOrdered By: Timi Trujillo on 07-10-2025 GFR/1.73 sq M.predicted among non-blacks MDRD (S/P/Bld) [Vol rate/Area] 86 mL/min/{1.73_m2} >60 [facility] Comment on above: mL/min/1.73m2 CKD-EP I Creatinine Equation (2020) Hematocrit Auto (Bld) [Volum e fraction]Ordered By: Timi Trujillo on 07-10-2025 Hematocrit (Bld) [Volume fraction] 46.7 % 40-54 [facility] Hemoglobin measurementOrdere d By: Timi Trujillo on 07-10-2025 Hemoglobin (Bld) [Mass/Vol] 15.7 g/dL 13.0-16.5 [facility] Immature granulocytes/100 WB C Auto (Bld)Ordered By: Timi Trujillo on 07-10-2025 Immature granulocytes/100 WBC (Bld) 0.400 % 0.0-0.9 [facility] Comment on above: IG% - Immature Granu locytes (promyelocytes, myelocytes and metamyelocytes) > 1% indicates that a LEFT SHIFT is Present. MCV (mean corpuscular volume ) determinationOrdered By: Timi Trujillo on 07-10-2025 MCV (RBC) [Entitic vol] 88.8 fL 80-94 [facility] Magnesiumon 07-10-2025 Magnesium [Mass/Vol] 2.2 mg/dL Normal 1.5-2.2 [facility] Comment on above: Performed By: #### L 100.0100, L500.2500, L501.5200 #### [facility] [address] [place] [address], [id number] Magnesium measurement (mass/ volume)Ordered By: Timi Trujillo on 07-10-2025 Magnesium (Unsp spec) [Mass/Vol] 2.2 mg/dL 1.5-2.2 [facility] Mean corpuscular hemoglobin (MCH) determinationOrdered By: Timi Trujillo on 07-10-2025 MCH (RBC) [Entitic mass] 29.8 pg 27.0-32.0 [facility] Mean corpuscular hemoglobin concentration (MCHC) determinationOrdered By: Timi Trujillo on 07-10-2025 MCHC (RBC) [Mass/Vol] 33.6 g/dL 32-36 [facility] Mean platelet volume determi nationOrdered By: Timi Trujillo on 07-10-2025 Platelet mean volume (Bld) [Entitic vol] 9.5 fL 6.2-12.0 [facility] Monocyte percentageOrdered B y: Timi Trujillo on 07-10-2025 Monocytes/100 WBC (Bld) 4.4 % 0-10 [facility] Neutrophil percentageOrdered By: Timi Trujillo on 07-10-2025 Neutrophils/100 WBC (Bld) 80.3 % High 47-70 [facility] Nucleated red blood cell per centageOrdered By: Timi Trujillo on 07-10-2025 Nucleated RBC/100 WBC (Bld) [Ratio] 0 % 0-5 [facility] Platelet countOrdered By: Martita Trujillo on 07-10-2025 Platelets (Bld) [#/Vol] 271 10*3/uL 150-450 [facility] Potassium measurement (mass/ volume)Ordered By: Timi Trujillo on 07-10-2025 Potassium (Unsp spec) [Mass/Vol] 4.0 mmol/L 3.3-5.1 [facility] RBC Auto (Bld) [#/Vol]Ordere d By: Timi Trujillo on 07-10-2025 RBC (Bld) [#/Vol] 5.26 10*6/uL 4.6-6.2 [facility] Serum creatinine measurement (mass/volume)Ordered By: Timi Trujillo on 07-10-2025 Creatinine [Mass/Vol] 1.01 mg/dL 0.70-1.20 [facility] Serum glucose measurement (m ass/volume)Ordered By: Timi Trujillo on 07-10-2025 Glucose [Mass/Vol] 123 mg/dL High 70-99 [facility] Serum or plasma calcium jose miguel urement (mass/volume)Ordered By: Timi Trujillo on 07-10-2025 Calcium [Mass/Vol] 8.5 mg/dL 7.6-11.0 [facility] [facility] Serum or plasma urea nitroge n measurement (mass/volume)Ordered By: Timi Trujillo on 07-10-2025 Urea nitrogen [Mass/Vol] 19 mg/dL 4-19 [facility] Sodium levelOrdered By: Terrence Trujillo on 07-10-2025 Sodium [Moles/Vol] 141 mmol/L 133-145 [facility] Spine Cervical without Contr ason 07-10-2025 Spine Cervical without Contras [facility] Imaging Services [address] [place] [address] Spine Cervical without Contras MR#: [id number] Acct: [id number] Name: SUKH GARCIA Rep #: [id number] : 1965 M 60 From: Hayde Anna PCP: Dr. Donato Roa MD Status: REG ER Study: Spine Cervical without Contras Date of Exam: 0 07/10/25 Exam# [id number] Ordering Dr: Timi Trujillo DO PROCEDURE: SPINE CERVICAL WITHOUT CONTRAS 07/10/2025 REASON FOR EXAM: INJURY TECHNIQUE: SPINE CERVICAL WITHOUT CONTRAS Coronal and Sagittal reconstruction series were provided. One or more dose reduction techniques were used (e.g., Automated exposure control, adjustment of the mA and/or kV according to patient size, use of iterative reconstruction technique. RADIATION DOSE SUMMARY: DLP: 1244 mGycm COMPARISON: none FINDINGS: No acute compression deformity, fracture, or subluxation. Mild multilevel degenerative changes with mild multilevel central canal stenosis and foraminal stenosis due to posterior disc-osteophyte complex, facet hypertrophy, and uncovertebral hypertrophy. No high-grade central canal stenosis. The prevertebral soft tissues are not thickened. Thyroid is unremarkable. Limited sections of the lung apices demonstrate no pneumothorax. CT/Spine Cervical without Contras IMPRESSION: No acute cervical fracture or subluxations. Reading Location: [facility] CC: Dr. Donato Roa MD; Timi Trujillo DO Key Punch Operator: Signed Normal [facility] White blood cell (WBC) count Ordered By: Timi Trujillo on 07-10-2025 WBC (Bld) [#/Vol] 14.7 10*3/uL High 4.4-11.0 [facility] CNPNon 06-14-2025 CNPN Telephone ([employer]) JOSESUKH Fernandez ([id number]) 1965 M Date Time Provider Department 06/14/25 DONATO ROA During your visit today, we recorded the following information about you: Erin Cervantes LPN 06/14/2025 2:48 PM Addendum Sukh Fernandez Jose called today. : 1965 Allergies: Shellfish Containing Products (home) [phone] (work) [phone] (cell) Reason for call: Sukh called to ask for a PSA lab order. He has an upcoming appointment with Dr Roa on 08/24/2025. His employer ([facility] [employer]) always orders annual blood tests which he will be getting done prior to his upcoming appointment. Sukh said he will bring the lab results reports along with him to the appointment to go over with Dr Roa. PSA is not included in the the tests the [facility] orders. He would like to have the PSA added please. Dr Roa please sign the order is if agreeable. Please call patient back with an answer. If approved please fax to #[phone] [facility]. Patient last appointment: 08/30/2024 Next appointment 08/2025 The patients preferred pharmacy has been captured for this encounter? no ROSAURA Singh Tawnya A, LPN 06/16/2025 2:21 PM Signed Please sign order. Erin Cervantes LPN June 16, 2025 2:21 PM Erin Cervantes LPN 07/06/2025 2:44 PM Signed PSA lab order faxed to [facility] fax to #[phone]. I called patient to let him know [...] Order(s):PSA/PROSTATE SPECIFIC ANTIGEN SCREENING [SQPSAS1] Order #: [id number] FUTURE Prescriptions as of 07/06/2025 - atorvastatin [...] Encounter Status:Closed by DONATO ROA on 06/19/25 [facility] Visit Reporton 0 03-29-2025 Urgent Care Visit Report [facility] [address], [address] [place] [address] OFFICE VISIT Date of Service: 03/29/25 MR#: [id number] Acct: [id number] Name: SUKH GARCIA Rep #: [id number] : 1965 Provider: GABBIE Benedict Age/Sex: 60/M Location: [facility] Status: Signed Intake Vital Signs 03/21/25 16:34 03/29/25 16:00 Height 5 ft 9 in Weight: 171 lb 6 oz BMI 25.2 BP 100/60 110/68 Position Sitting Sitting Pulse 80 95 Temp 98.5 F Temp Source Oral Pulse Oximetry (%) 97 98 Oxygen Delivery Method room air room air Intake Visit Reasons: L ANKLE / [facility] Chief Complaint: Follow-up for left little finger fracture-- worker's comp Accompanied by: Self Allergies shellfish derived Allergy (Verified 03/29/25 16:00) Angioedema Medications ???Medication ???Instructions ???Recorded ???Confirmed ???Type atorvastatin 10 mg tablet 10 mg PO QHS 03/21/25 03/29/25 His tory cephalexin 500 mg capsule 500 mg PO TID #21 caps 03/21/25 Rx Nurse's Note: Patient is here for [facility] f/u. [facility] Medical History (Updated 03/21/25 @ 16:42 by Bhupinder CARTWRIGHT, PA) Abrasion, left lower leg, initial encounter Contusion of left lower leg Hyperlipemia Social History Smoking Status: Never smoker HPI HPI Chief Complaint: Follow-up for left little finger fracture-- worker's comp Details: SUKH GARCIA, is a 60 M who presents to the office today for f/u at the [facility] clinic status post patient states he hurt [...] work without restrictions as noted on today's MedKeepy 14. Cephalexin as prescribed was completed earlier today. Follow-up with the [facility] on an as-needed basis only. Patient states acknowledging understanding all the above. Coding Level of Care Code Off vis,est,level 2 03/29/25 1614 Date Bhupinder CARTWRIGHT Cosigner Signature: Date (if applicable) CC: Normal [facility] Ankle min 3 Viewson 03-21-20 25 Ankle min 3 Views [facility] Imaging Services [address] [place], [place] [address] Ankle min 3 Views MR#: [id number] Acct: [id number] Name: SUKH GARCIA Rep #: [id number] : 1965 M 60 From: Vladislav Santana MD PCP: Dr. Donato Roa MD Status: REG CLI Study: Ankle min 3 Views Date of Exam: 03/21/25 Exam# [id number] Ordering Dr: Bhupinder Borges PROCEDURE: LEFT ANKLE MIN 3 VIEWS 03/21/2025 REASON FOR EXAM: PAIN TECHNIQUE: 3 views of the LEFT ankle COMPARISON: No relevant prior. FINDINGS: Bones: No fractures or other osseous abnormalities. Joints: No subluxations or dislocations. Soft tissues: Unremarkable. RAD/Ankle min 3 Views IMPRESSION: No acute osseous findings. Reading Location: [facility] CC: Dr. Donato Roa MD; GABBIE Benedict Key Punch Operator: Signed Normal [facility] Tibia Fibula 2 Viewson 03-21 Tibia Fibula 2 Views [facility] Imaging Services [address] [place] [address] Tibia Fibula 2 Views MR#: [id number] Acct: [id number] Name: SUKH GARCIA Rep #: [id number] : 1965 M 60 From: Vladislav Santana MD PCP: Dr. Donato Roa MD Status: REG CLI Study: Tibia Fibula 2 Views Date of Exam: 03/21/25 Exam# [id number] Ordering Dr: Bhupinder Borges EXAM: LEFT AND FIBULA CLINICAL HISTORY: INJURY. COMPARISON: NO RELEVANT PRIOR. TECHNIQUE: AP and lateral views. FINDINGS: Bones: No fractures or other osseous abnormalities. Joints: No subluxations or dislocations. Soft tissues: Unremarkable. RAD/Tibia Fibula 2 Views IMPRESSION: 1. No acute osseous findings. Reading Location: [facility] CC: Dr. Donato Roa MD; GABBIE Benedict Key Punch Operator: Signed Normal [facility] Urgent Care Visit Reporton 0 03-21-2025 Urgent Care Visit Report [facility] [address], [address] [place] [address] OFFICE VISIT Date of Service: 03/21/25 MR#: [id number] Acct: [id number] Name: SUKH GARCIA Rep #: [id number] : 1965 Provider: GABBIE Benedict Age/Sex: 60/M Location: [facility] Status: Signed Intake Vital Signs 05/12/23 15:15 [...] ankle that isn't completely healed. [facility] Medical History (Updated 03/21/25 @ 16:42 by Bhupinder CARTWRIGHT, PA) Abrasion, left lower leg, initial encounter Contusion of left lower leg Hyperlipemia Social History Smoking Status: Never smoker HPI HPI Details: SUKH GARCIA, is a 60 M who presents to the office today [facility]/ lower leg [...] function at injury site or distally. No clpu-xyk-wjxxjjg topical products been tried to assist. No [...] Incision and Drainage Procedure performed by: Bhupinder Borges Informed consent given: Yes Consent signed: No (Verbal consent given) Time out checklist: patient, procedure, site marked/identified, positioning of patient, supplies available and allergies confirmed Anesthesia: local (Lidocaine 2 Percent Fld. block 1.5 mL) Incision with: #11 blade Drainage quality: minimal-none Lesion: erythema, drainage, fluctuance, induration and necrosis Dressing: gauze Patient tolerated procedure: well Complications: No Coding Level of Care Code Attention Final Cigar And Box Examiner Diagnoses Contusion of left lower leg S80.12XA Abrasion, left lower leg, initial encounter S80.812A Comment 52179, 00136 Assessment and Plan Assessment and Plan (1) [...] the above. This note was generated with [employer] dictation software. It may contain incorrect words, spelling, and punctuation that were not noted in checking the note before signing. Orders: Orders Ankle min 3 Views Today M25.572 - Pain in left ankle and joints of left foot Tibia Fibula 2 Views Today S89.92XA - Unspecified injury of left lower leg, initial encounter Medications: New cephalexin 5 (more content not included)... Normal [facility] CNOVon 08-30-2024 CNOV Office Visit (FAMMAS ) SUKH GARCIA ([id number]) 1965 M Date Time Provider Department 08/30/24 [...] Prostate Cancer Screening Discussion declined Influenza Vaccine(1) [facility] Covid-19 Vaccine()[facility] Samina Aj LPN August 30, 2024 5:00 [...] and be (more content not included)... Normal [facility] CBC, Employeeon 08-23-2024 Absolute Lymph 1.64 X10 3/uL Normal 0.83-4.51 [facility] Comment on above: Performed By: #### L 500.2900, L400.0100, L100.0200 ####[facility] [address] [place], [address] Absolute Neut 4.1 X10 3/uL Normal 2.0-7.7 [facility] Comment on above: Performed By: #### L 500.2900, L400.0100, L100.0200 ####[facility] [address] [place], [address] Basophils/100 WBC (Bld) 1.3 % High 0-1 [facility] Comment on above: Performed By: #### L 500.2900, L400.0100, L100.0200 ####[facility] [address] [place], [address] Eosinophils/100 WBC (Bld) 2.5 % Normal 0-5 [facility] Comment on above: Performed By: #### L 500.2900, L400.0100, L100.0200 ####[facility] [address] [place], [address] Erythrocyte distribution width (RBC) [Ratio] 11.9 % Normal 11.6-14.6 [facility] Comment on above: Performed By: #### L 500.2900, L400.0100, L100.0200 ####[facility] [address] [place], [address] Hematocrit (Bld) [Volume fraction] 46.2 % Normal 40-54 [facility] Comment on above: Performed By: #### L 500.2900, L400.0100, L100.0200 ####[facility] [address] [place], [address] Hemoglobin (Bld) [Mass/Vol] 15.1 g/dL Normal 13.0-16.5 [facility] Comment on above: Performed By: #### L 500.2900, L400.0100, L100.0200 ####[facility] [address] [place], [address] Lymphocytes/100 WBC (Bld) 25.7 % Normal 19-41 [facility] Comment on above: Performed By: #### L 500.2900, L400.0100, L100.0200 ####[facility] [address] [place], [address] MCH (RBC) [Entitic mass] 30.3 pg Normal 27.0-32.0 [facility] Comment on above: Performed By: #### L 500.2900, L400.0100, L100.0200 ####[facility] [address] [place], [address] MCHC (RBC) [Mass/Vol] 32.7 g/dL Normal 32-36 [facility] Comment on above: Performed By: #### L 500.2900, L400.0100, L100.0200 ####[facility] [address] [place], [address] MCV (RBC) [Entitic vol] 92.6 fL Normal 80-94 [facility] Comment on above: Performed By: #### L 500.2900, L400.0100, L100.0200 ####[facility] [address] [place], [address] Monocytes/100 WBC (Bld) 6.7 % Normal 0-10 [facility] Comment on above: Performed By: #### L 500.2900, L400.0100, L100.0200 ####[facility] [address] [place], [address] Neutrophils/100 WBC (Bld) 63.5 % Normal 47-70 [facility] Comment on above: Performed By: #### L 500.2900, L400.0100, L100.0200 ####[facility] [address] [place], [address] NRBC # 0.00 10 3/uL Normal 0-5 [facility] Comment on above: Performed By: #### L 500.2900, L400.0100, L100.0200 ####[facility] [address] [place], [address] Nucleated RBC (Bld) [#/Vol] 0 10*3/uL Normal 0-5 [facility] Comment on above: Performed By: #### L 500.2900, L400.0100, L100.0200 ####[facility] [address] [place], [address] Platelet mean volume (Bld) [Entitic vol] 9.8 fL Normal 6.2-12.0 [facility] Comment on above: Performed By: #### L 500.2900, L400.0100, L100.0200 ####[facility] [address] [place], [address] Platelets (Bld) [#/Vol] 269 10*3/uL Normal 150-450 [facility] Comment on above: Performed By: #### L 500.2900, L400.0100, L100.0200 ####[facility] [address] [place], [address] RBC (Bld) [#/Vol] 4.99 10*6/uL Normal 4.6-6.2 [facility] Comment on above: Performed By: #### L 500.2900, L400.0100, L100.0200 ####[facility] [address] [place], [address] RDW SD 40.2 fl Normal 35.1-43.9 [facility] Comment on above: Performed By: #### L 500.2900, L400.0100, L100.0200 ####[facility] [address] [place], [address] WBC (Bld) [#/Vol] 6.4 10*3/uL Normal 4.4-11.0 [facility] Comment on above: Performed By: #### L 500.2900, L400.0100, L100.0200 ####[facility] [address] [place], [address] Employee Profileon 4 Albumin [Mass/Vol] 3.7 g/dL Normal 3.2-5.0 [facility] Comment on above: Performed By: #### L 500.2900, L400.0100, L100.0200 ####[facility] [address] [place], [address] Albumin/Globulin [Mass ratio] 1.1 {ratio} Normal 0.9-2.4 [facility] Comment on above: Performed By: #### L 500.2900, L400.0100, L100.0200 ####[facility] [address] [place], [address] ALK P 80 U/L Normal 45-117 [facility] Comment on above: Performed By: #### L 500.2900, L400.0100, L100.0200 ####[facility] [address] [place], [address] ALT [Catalytic activity/Vol] 58 U/L Normal 16-61 [facility] Comment on above: Performed By: #### L 500.2900, L400.0100, L100.0200 ####[facility] [address] [place], [address] AST [Catalytic activity/Vol] 61 U/L High 15-37 [facility] Comment on above: Performed By: #### L 500.2900, L400.0100, L100.0200 ####[facility] [address] [place], [address] Bilirubin [Mass/Vol] 0.60 mg/dL Normal 0.20-1.00 [facility] Comment on above: Result Comment: For patients on eltrombopag therapy, use of Dimension [place] TBIL is not recommended. Performed By: #### L 500.2900, L400.0100, L100.0200 ####[facility] [address] [place], [address] Bilirubin.direct [Mass/Vol] 0.16 mg/dL Normal 0.00-0.30 [facility] Comment on above: Performed By: #### L 500.2900, L400.0100, L100.0200 ####[facility] [address] [place], [address] BUN/CRE 18.2 RATIO Normal 10-20 [facility] Comment on above: Performed By: #### L 500.2900, L400.0100, L100.0200 ####[facility] [address] [place], [address] CA,Total 8.7 mg/dL Normal 8.5-10.1 [facility] Comment on above: Performed By: #### L 500.2900, L400.0100, L100.0200 ####[facility] [address] [place], [address] Chloride [Moles/Vol] 108 mmol/L High 98-107 [facility] Comment on above: Performed By: #### L 500.2900, L400.0100, L100.0200 ####[facility] [address] [place], [address] CHOL:HDL 2.70 Normal [facility] Comment on above: Performed By: #### L 500.2900, L400.0100, L100.0200 ####[facility] [address] [place], [address] Cholesterol [Mass/Vol] 166 mg/dL Normal 200 [facility] Comment on above: Result Comment: <200 mg/dL Desirable 200-240 mg/dL Borderline >240 mg/dL High Risk Performed By: #### L 500.2900, L400.0100, L100.0200 ####[facility] [address] [place], [address] Cholesterol in HDL [Mass/Vol] 61 mg/dL Normal [facility] Comment on above: Result Comment: The drugs N-Acetylcysteine and Metamizole may falsely depress this assay. Reference Range HDL <40 mg/dL Low HDL Cholesterol HDL >or= 60 mg/dL High HDL Cholesterol Performed By: #### L 500.2900, L400.0100, L100.0200 ####[facility] [address] [place], [address] Cholesterol in LDL [Mass/Vol] 94 mg/dL Normal 0-130 [facility] Comment on above: Performed By: #### L 500.2900, L400.0100, L100.0200 ####[facility] [address] [place], [address] Cholesterol in VLDL [Mass/Vol] 11 mg/dL Normal 5-40 [facility] Comment on above: Performed By: #### L 500.2900, L400.0100, L100.0200 ####[facility] [address] [place], [address] CO2 [Moles/Vol] 25.0 mmol/L Normal 21.0-32.0 [facility] Comment on above: Performed By: #### L 500.2900, L400.0100, L100.0200 ####[facility] [address] [place], [address] Creatinine [Mass/Vol] 1.10 mg/dL Normal 0.70-1.30 [facility] Comment on above: Result Comment: The validity of the calculated GFR GFRAA in patients over 70 years has not been determined. Clinical correlation is essential. Performed By: #### L 500.2900, L400.0100, L100.0200 ####[facility] [address] [place], [address] EST GFR - AA 89 mL/min Normal >60 [facility] Comment on above: Result Comment: Afri can Citizen [place] GFR Calc Performed By: #### L 500.2900, L400.0100, L100.0200 ####[facility] [address] [place], [address] GAP 7 Normal 5-15 [facility] Comment on above: Performed By: #### L 500.2900, L400.0100, L100.0200 ####[facility] [address] [place], [address] GFR/1.73 sq M.predicted among non-blacks MDRD (S/P/Bld) [Vol rate/Area] 73 mL/min/{1.73_m2} Normal >60 [facility] Comment on above: Result Comment: Non- GFR Calc Performed By: #### L 500.2900, L400.0100, L100.0200 ####[facility] [address] [place], [address] Globulin (S) [Mass/Vol] 3.4 g/dL Normal 2.2-4.2 [facility] Comment on above: Performed By: #### L 500.2900, L400.0100, L100.0200 ####[facility] [address] [place], [address] Glucose [Mass/Vol] 96 mg/dL Normal 74-106 [facility] Comment on above: Performed By: #### L 500.2900, L400.0100, L100.0200 ####[facility] [address] [place], [address] LDH 181 U/L Normal 87-241 [facility] Comment on above: Performed By: #### L 500.2900, L400.0100, L100.0200 ####[facility] [address] [place], [address] Phosphate [Mass/Vol] 2.9 mg/dL Normal 2.5-4.9 [facility] Comment on above: Performed By: #### L 500.2900, L400.0100, L100.0200 ####[facility] [address] [place], [address] Potassium [Moles/Vol] 4.3 mmol/L Normal 3.5-5.1 [facility] Comment on above: Performed By: #### L 500.2900, L400.0100, L100.0200 ####[facility] [address] [place], [address] Sodium [Moles/Vol] 140 mmol/L Normal 136-145 [facility] Comment on above: Performed By: #### L 500.2900, L400.0100, L100.0200 ####[facility] [address] [place], [address] T PROT 7.1 g/dL Normal 6.4-8.2 [facility] Comment on above: Performed By: #### L 500.2900, L400.0100, L100.0200 ####[facility] [address] [place], [address] Triglyceride [Mass/Vol] 57 mg/dL Normal [facility] Comment on above: Result Comment: The drugs N-Acetylcysteine and Metamizole may falsely depress this assay. Serum Triglycerides Reference Interval Normal <150 mg/dL Borderline high 150 - 199 mg/dL High 200 - 499 mg/dL Very High > or = 500 mg/dL Performed By: #### L 500.2900, L400.0100, L100.0200 ####[facility] [address] [place], [address] Urea nitrogen [Mass/Vol] 20 mg/dL High 7-18 [facility] Comment on above: Performed By: #### L 500.2900, L400.0100, L100.0200 ####[facility] [address] [place], [address] URIC 5.3 mg/dL Normal 3.5-7.2 [facility] Comment on above: Result Comment: The drugs N-Acetylcysteine and Metamizole may falsely depress this assay. Performed By: #### L 500.2900, L400.0100, L100.0200 ####[facility] [address] [place], [address] PSA,Total - Annual Screenon 08-23-2024 PSA,TOT SCREEN 1.10 ng/mL Normal 0.00-4.00 [facility] Comment on above: Result Comment: This test was performed using the TPSA assay method for the [employer] chemistry system. Values obtained with different assay methods cannot be used interchangably. When changing PSA assays in the course of monitoring a patient, additional sequential testing should be carried out to confirm baseline values. Performed By: #### L 501.9910 ####[facility] [address] [place], [address] Urinalysis, Employeeon 08-23 BILIRUBIN URINE Negative Normal Negative [facility] Comment on above: Order Comment: CLEAN CATCH Performed By: #### L 500.2900, L400.0100, L100.0200 ####[facility] [address] [place], [address] Clarity (U) Clear Normal Clear [facility] Comment on above: Order Comment: CLEAN CATCH Performed By: #### L 500.2900, L400.0100, L100.0200 ####[facility] [address] [place], [address] Color (U) Yellow Normal Yellow [facility] Comment on above: Order Comment: CLEAN CATCH Performed By: #### L 500.2900, L400.0100, L100.0200 ####[facility] [address] [place], [address] GLUCOSE, UR Normal Normal Normal [facility] Comment on above: Order Comment: CLEAN CATCH Performed By: #### L 500.2900, L400.0100, L100.0200 ####[facility] [address] [place], [address] KETONE UR Negative Normal Negative [facility] Comment on above: Order Comment: CLEAN CATCH Performed By: #### L 500.2900, L400.0100, L100.0200 ####[facility] [address] [place], [address] LEUK ESTERASE Negative Normal Negative [facility] Comment on above: Order Comment: CLEAN CATCH Performed By: #### L 500.2900, L400.0100, L100.0200 ####[facility] [address] [place], [address] Nitrite Ql (U) Negative Normal Negative [facility] Comment on above: Order Comment: CLEAN CATCH Performed By: #### L 500.2900, L400.0100, L100.0200 ####[facility] [address] [place], [address] OCCULT BLOOD-UR Negative Normal Negative [facility] Comment on above: Order Comment: CLEAN CATCH Performed By: #### L 500.2900, L400.0100, L100.0200 ####[facility] [address] [place], [address] pH UR 6.0 Normal 5.0 - 8.0 [facility] Comment on above: Order Comment: CLEAN CATCH Performed By: #### L 500.2900, L400.0100, L100.0200 ####[facility] [address] [place], [address] PROT DIPSTX Negative Normal Negative [facility] Comment on above: Order Comment: CLEAN CATCH Performed By: #### L 500.2900, L400.0100, L100.0200 ####[facility] [address] [place], [address] SP.GR. DIPSTX 1.020 Normal 1.002-1.030 [facility] Comment on above: Order Comment: CLEAN CATCH Performed By: #### L 500.2900, L400.0100, L100.0200 ####[facility] [address] [place], [address] UROBILI Normal Normal Normal [facility] Comment on above: Order Comment: CLEAN CATCH Performed By: #### L 500.2900, L400.0100, L100.0200 ####[facility] [address] [place], [address] CNPClari 08-03-2024 JANINEN Telephone ([employer]) SUKH GARCIA ([id number]) 1965 M Date Time Provider Department 08/03/24 DONATO ROA During your visit today, we recorded the following information about you: Erin Cervantes LPN 08/03/2024 10:38 AM Addendum Sukh Garcia called today. : 1965 Allergies: Shellfish Containing Products (home) [phone] (work) [phone] (cell) Reason for call: Sukh called to ask for a PSA lab order. He has an upcoming appointment with Dr Roa on 08/30/2024. His employer ([employer]) always orders annual blood tests which [...] an answer. If approved please fax to #[phone] [facility]. Patient last appointment: 02/25/2024 Next appointment 08/30/2024 The patients preferred pharmacy has been captured for this encounter? no ROSAURA Singh Raymond Gregory, MD 08/03/2024 10:59 AM Signed Order is signed Erin Cervantes LPN 08/03/2024 12:21 PM Signed PSA order faxed to [facility] fax#[phone]. Patient Sukh notified. Erin Cervantes LPN August 03, 2024 12:21 PM Allergies As of Date: 08/03/2024 Noted Allergy Reaction SHELLFISH CONTAINING PRODUCTS 07/18/2017 10 - Anaphylaxis Date Reviewed: 02/25/2024 Reviewed by: Samina Aj LPN - Fully Assessed Reason for Visit: Orders [681] Primary Visit Diagnosis:Screening PSA (prostate specific antigen) [Z12.5] Order(s):PSA/PROSTATE SPECIFIC ANTIGEN SCREENING [SQPSAS1] Order #: [id number] FUTURE Prescriptions as of 08/03/2024 - atorvastatin [...] Encounter Status:Closed by DONATO ROA on 08/03/24 [facility] Basophil percentageOrdered B y: Donato Roa on 02-27-2024 Bilirubin [Mass/Vol] 0.80 mg/dL 0.20-1.00 [facility] Comment on above: For patients on eltr ombopag therapy, use of Dimension [place] TBIL is not recommended. Chloride [Moles/Vol] 109 mmol/L 98-107 [facility] Cholesterol [Mass/Vol] 173 mg/dL <200 [facility] Comment on above: <200 mg/dL Desirable 200-240 mg/dL Borderline >240 mg/dL High Risk Glucose [Mass/Vol] 106 mg/dL 74-106 [facility] Comment on above: Fasting Glucose resu lt from 100 to 125 mg/dL suggests IMPAIRED HOMEOSTASIS per A.D.A. criteria. Potassium [Moles/Vol] 4.5 mmol/L 3.5-5.1 [facility] Protein [Mass/Vol] 7.1 g/dL 6.4-8.2 [facility] Sodium [Moles/Vol] 140 mmol/L 136-145 [facility] Triglyceride [Mass/Vol] 67 mg/dL <199 [facility] Comment on above: The drugs N-Acetylcy steine and Metamizole may falsely depress this assay.Serum Triglycerides Reference Interval Normal <150 mg/dL Borderline high 150 - 199 mg/dL High 200 - 499 mg/dL Very High > or = 500 mg/dL Laboratory - Chemistry and C hemistry - challengeOrdered By: Donato Roa on 02-27-2024 Albumin/Globulin [Mass ratio] 1.2 {ratio} 0.9-2.4 [facility] ALP [Catalytic activity/Vol] 64 U/L 45-117 [facility] ALT [Catalytic activity/Vol] 36 U/L 16-61 [facility] Cholesterol in HDL [Mass/Vol] 61 mg/dL >40 [facility] Comment on above: The drugs N-Acetylcy steine and Metamizole may falsely depress this assay. Reference Range HDL <40 mg/dL Low HDL Cholesterol HDL >or= 60 mg/dL High HDL Cholesterol Cholesterol in LDL [Mass/Vol] 99 mg/dL 0-130 [facility] CO2 [Moles/Vol] 26.0 mmol/L 21.0-32.0 [facility] Globulin (S) [Mass/Vol] 3.2 g/dL 2.2-4.2 [facility] Urea nitrogen/Creatinine [Mass ratio] 22.0 mg/mg 10-20 [facility] No Panel InformationOrdered By: Donato Roa on 02-27-2024 Estimated GFR (MDRD) Amer 90 mL/min >60 [facility] Comment on above: GFR Calc Estimated GFR (MDRD) Non-Af Amer 74 mL/min >60 [facility] Comment on above: Non- GFR Calc VLDL Cholesterol 13 mg/dL 5-40 [facility] Serum or plasma calcium jose miguel urement (mass/volume)Ordered By: Donato Roa on 02-27-2024 Calcium [Mass/Vol] 8.9 mg/dL 8.5-10.1 [facility] Serum or plasma creatinine m easurement (mass/volume)Ordered By: Donato Roa on 02-27-2024 Creatinine [Mass/Vol] 1.09 mg/dL 0.70-1.30 [facility] Comment on above: The validity of the calculated GFR & GFRAA in patients over 70 years has not been determined. Clinical correlation is essential. Serum or plasma urea nitroge n measurement (mass/volume)Ordered By: Donato Roa on 02-27-2024 Urea nitrogen [Mass/Vol] 24 mg/dL 7-18 [facility] Thin prep Papanicolaou smear with manual screeningOrdered By: Donato Roa on 02-27-2024 Thin prep Papanicolaou smear with manual screening 3.9 g/dL 3.2-5.0 [facility] Thin prep Papanicolaou smear with manual screening 22 U/L 15-37 [facility] Thin prep Papanicolaou smear with manual screening 5 5-15 [facility] Absolute lymphocyte countOrd ered By: HEALTH ASSESSMENT on 08-12-2023 Lymphocytes Auto (Unsp spec) [#/Vol] 1.83 10*3/uL 0.83-4.51 [facility] Absolute reticulocyte countO rdered By: HEALTH ASSESSMENT on 08-12-2023 Reticulocytes (Bld) [#/Vol] 0.00 10*3/uL 0-5 [facility] Basophil percentageOrdered B y: HEALTH ASSESSMENT on 08-12-2023 Basophil percentage 2.7 mg/dL 2.5-4.9 [facility] Bilirubin [Mass/Vol] 0.70 mg/dL 0.20-1.00 [facility] Comment on above: For patients on eltr ombopag therapy, use of Dimension [place] TBIL is not recommended. Chloride [Moles/Vol] 108 mmol/L 98-107 [facility] Cholesterol [Mass/Vol] 158 mg/dL <200 [facility] Comment on above: <200 mg/dL Desirable 200-240 mg/dL Borderline >240 mg/dL High Risk Glucose [Mass/Vol] 113 mg/dL 74-106 [facility] Comment on above: Fasting Glucose resu lt from 100 to 125 mg/dL suggests IMPAIRED HOMEOSTASIS per A.D.A. criteria. LDH [Catalytic activity/Vol] 138 U/L 87-241 [facility] Neutrophils (Bld) [#/Vol] 3.2 10*3/uL 2.0-7.7 [facility] Potassium [Moles/Vol] 4.2 mmol/L 3.5-5.1 [facility] Protein [Mass/Vol] 7.2 g/dL 6.4-8.2 [facility] Sodium [Moles/Vol] 140 mmol/L 136-145 [facility] Triglyceride [Mass/Vol] 132 mg/dL <199 [facility] Comment on above: The drugs N-Acetylcy steine and Metamizole may falsely depress this assay.Serum Triglycerides Reference Interval Normal <150 mg/dL Borderline high 150 - 199 mg/dL High 200 - 499 mg/dL Very High > or = 500 mg/dL WBC (Bld) [#/Vol] 5.9 10*3/uL 4.4-11.0 [facility] Bilirubin Test strip Ql (U)O rdered By: HEALTH ASSESSMENT on 08-12-2023 Bilirubin Ql (U) Negative Negative [facility] Blood erythrocytes count (nu mber/volume)Ordered By: HEALTH ASSESSMENT on 08-12-2023 RBC (Bld) [#/Vol] 4.99 10*6/uL 4.6-6.2 [facility] Blood hemoglobin measurement (mass/volume)Ordered By: HEALTH ASSESSMENT on 08-12-2023 Hemoglobin (Bld) [Mass/Vol] 15.4 g/dL 13.0-16.5 [facility] Blood platelet mean volumeOr dered By: HEALTH ASSESSMENT on 08-12-2023 Platelet mean volume (Bld) [Entitic vol] 9.5 fL 6.2-12.0 [facility] Determination of erythrocyte mean corpuscular volume (MCV)Ordered By: HEALTH ASSESSMENT on 08-12-2023 MCV (RBC) [Entitic vol] 92.8 fL 80-94 [facility] Direct bilirubinOrdered By: HEALTH ASSESSMENT on 08-12-2023 Bilirubin.direct [Mass/Vol] 0.21 mg/dL 0.00-0.30 [facility] Hematocrit Auto (Bld) [Volum e fraction]Ordered By: HEALTH ASSESSMENT on 08-12-2023 Hematocrit (Bld) [Volume fraction] 46.3 % 40-54 [facility] Ketones Test strip Ql (U)Ord ered By: HEALTH ASSESSMENT on 08-12-2023 Ketones Ql (U) 5 mg/dl Negative [facility] Laboratory - Chemistry and C hemistry - challengeOrdered By: HEALTH ASSESSMENT on 08-12-2023 ALP [Catalytic activity/Vol] 64 U/L 45-117 [facility] ALT [Catalytic activity/Vol] 33 U/L 16-61 [facility] Cholesterol.total/Nery sterol in HDL [Mass ratio] 2.60 {ratio} [facility] CO2 [Moles/Vol] 27.0 mmol/L 21.0-32.0 [facility] Globulin (S) [Mass/Vol] 3.4 g/dL 2.2-4.2 [facility] Urea nitrogen/Creatinine [Mass ratio] 17.0 mg/mg 10-20 [facility] Laboratory - Hematology and Cell countsOrdered By: HEALTH ASSESSMENT on 08-12-2023 Erythrocyte distribution width (RBC) [Entitic vol] 41.3 fL 35.1-43.9 [facility] Erythrocyte distribution width (RBC) [Ratio] 12.1 % 11.6-14.6 [facility] MCH (RBC) [Entitic mass] 30.9 pg 27.0-32.0 [facility] Nucleated RBC/100 WBC (Bld) [Ratio] 0 % 0-5 [facility] MCHC Auto (RBC) [Mass/Vol]Or dered By: HEALTH ASSESSMENT on 08-12-2023 MCHC (RBC) [Mass/Vol] 33.3 g/dL 32-36 [facility] Nitrite Test strip Ql (U)Ord ered By: HEALTH ASSESSMENT on 08-12-2023 Nitrite Ql (U) Negative Negative [facility] No Panel InformationOrdered By: HEALTH ASSESSMENT on 08-12-2023 Estimated GFR (MDRD) Amer 93 mL/min >60 [facility] Comment on above: GFR Calc Estimated GFR (MDRD) Non-Af Amer 77 mL/min >60 [facility] Comment on above: Non- GFR Calc No Panel InformationOrdered By: Donato Roa on 08-12-2023 Prostate Specific Antigen Screen 1.01 ng/mL 0.00-4.00 [facility] Comment on above: This test was perfor med using the TPSA assay method [facility]. Values obtained with differentassay methods cannot be used interchangably.When changing PSA assays in the course of monitoring apatient, additional sequential testing should be carriedout to confirm baseline values. Platelets bldOrdered By: Rebecca [facility] ASSESSMENT on 08-12-2023 Platelets (Bld) [#/Vol] 228 10*3/uL 150-450 [facility] Protein Test strip Ql (U)Ord ered By: HEALTH ASSESSMENT on 08-12-2023 Protein Ql (U) 15 mg/dl Negative [facility] Segmented neutrophils/100 WB C Auto (Bld)Ordered By: HEALTH ASSESSMENT on 08-12-2023 Segmented neutrophils/100 WBC (Bld) 55.1 % 47-70 [facility] Serum or plasma albumin jose miguel urement (mass/volume)Ordered By: HEALTH ASSESSMENT on 08-12-2023 Albumin [Mass/Vol] 3.8 g/dL 3.2-5.0 [facility] Serum or plasma albumin/glob ulin mass ratioOrdered By: HEALTH ASSESSMENT on 08-12-2023 Albumin/Globulin [Mass ratio] 1.1 {ratio} 0.9-2.4 [facility] Serum or plasma calcium jose miguel urement (mass/volume)Ordered By: HEALTH ASSESSMENT on 08-12-2023 Calcium [Mass/Vol] 8.8 mg/dL 8.5-10.1 [facility] Serum or plasma cholesterol in HDL measurement (mass/volume)Ordered By: HEALTH ASSESSMENT on 08-12-2023 Cholesterol in HDL [Mass/Vol] 60 mg/dL >40 [facility] Comment on above: The drugs N-Acetylcy steine and Metamizole may falsely depress this assay. Reference Range HDL <40 mg/dL Low HDL Cholesterol HDL >or= 60 mg/dL High HDL Cholesterol Serum or plasma cholesterol in VLDL measurement (mass/volume)Ordered By: HEALTH ASSESSMENT on 08-12-2023 Cholesterol in VLDL [Mass/Vol] 26 mg/dL 5-40 [facility] Serum or plasma creatinine m easurement (mass/volume)Ordered By: HEALTH ASSESSMENT on 08-12-2023 Creatinine [Mass/Vol] 1.06 mg/dL 0.70-1.30 [facility] Comment on above: The validity of the calculated GFR & GFRAA in patients over 70 years has not been determined. Clinical correlation is essential. Serum or plasma low density lipoprotein (LDL) cholesterol measurement (mass/volume)Ordered By: HEALTH ASSESSMENT on 08-12-2023 Cholesterol in LDL [Mass/Vol] 72 mg/dL 0-130 [facility] Serum or plasma urea nitroge n measurement (mass/volume)Ordered By: HEALTH ASSESSMENT on 08-12-2023 Urea nitrogen [Mass/Vol] 18 mg/dL 7-18 [facility] Serum or plasma uric acid me asurement (mass/volume)Ordered By: HEALTH ASSESSMENT on 08-12-2023 Urate [Mass/Vol] 5.6 mg/dL 3.5-7.2 [facility] Comment on above: The drugs N-Acetylcy steine and Metamizole may falsely depress this assay. Thin prep Papanicolaou smear with manual screeningOrdered By: HEALTH ASSESSMENT on 08-12-2023 Thin prep Papanicolaou smear with manual screening 17 U/L 15-37 [facility] Thin prep Papanicolaou smear with manual screening 5 5-15 [facility] Urine blood detectionOrdered By: HEALTH ASSESSMENT on 08-12-2023 RBC Ql (U) Negative Negative [facility] Urine clarityOrdered By: A [facility] ASSESSMENT on 08-12-2023 Clarity (U) Clear Clear [facility] Urine color determinationOrd ered By: HEALTH ASSESSMENT on 08-12-2023 Color (U) Yellow Yellow [facility] Urine glucose detectionOrder ed By: HEALTH ASSESSMENT on 08-12-2023 Glucose Ql (U) Normal mg/dl Normal [facility] Urine leukocyte esterase det ection by dipstickOrdered By: HEALTH ASSESSMENT on 08-12-2023 Leukocyte esterase Test strip Ql (U) 25 /ul Negative [facility] Urine pHOrdered By: HEALTH A SSESSMENT on 08-12-2023 pH (U) 6.0 [pH] 5.0 - 8.0 [facility] Urine specific gravity measu rementOrdered By: HEALTH ASSESSMENT on 08-12-2023 Specific gravity (U) [Rel density] 1.020 1.002-1.030 [facility] Urobilinogen Auto test strip Ql (U)Ordered By: HEALTH ASSESSMENT on 08-12-2023 Urobilinogen Ql (U) 1 mg/dl Normal [facility] Basophil percentageon 2021 Bilirubin [Mass/Vol] 0.80 mg/dL 0.20-1.00 [facility] Work Phone: Comment on above: For patients on eltr ombopag therapy, use of Dimension [place] TBIL is not recommended. Cholesterol [Mass/Vol] 168 mg/dL <200 [facility] Work Phone: [phone] Comment on above: <200 mg/dL Desirable 200-240 mg/dL Borderline >240 mg/dL High Risk Protein [Mass/Vol] 6.8 g/dL 6.4-8.2 [facility] Work Phone: [phone] Triglyceride [Mass/Vol] 79 mg/dL [facility] Work Phone: [phone] Comment on above: The drugs N-Acetylcy steine and Metamizole may falsely depress this assay.Serum Triglycerides Reference Interval Normal <150 mg/dL Borderline high 150 - 199 mg/dL High 200 - 499 mg/dL Very High > or = 500 mg/dL Direct bilirubinon Bilirubin.direct [Mass/Vol] 0.23 mg/dL 0.00-0.30 [facility] Work Phone: [phone] Laboratory - Chemistry and C hemistry - challengeon 02-27-2022 ALP [Catalytic activity/Vol] 61 U/L 45-117 [facility] Work Phone: [phone] ALT [Catalytic activity/Vol] 35 U/L 16-61 [facility] Work Phone: [phone] Globulin (S) [Mass/Vol] 3.0 g/dL 2.2-4.2 [facility] Work Phone: [phone] Serum or plasma albumin jose miguel urement (mass/volume)on 02-27-2022 Albumin [Mass/Vol] 3.8 g/dL 3.2-5.0 [facility] Work Phone: [phone] Serum or plasma cholesterol in HDL measurement (mass/volume)on 02-27-2022 Cholesterol in HDL [Mass/Vol] 67 mg/dL [facility] Work Phone: [phone] Comment on above: The drugs N-Acetylcy steine and Metamizole may falsely depress this assay. Reference Range HDL <40 mg/dL Low HDL Cholesterol HDL >or= 60 mg/dL High HDL Cholesterol Serum or plasma cholesterol in VLDL measurement (mass/volume)on 02-27-2022 Cholesterol in VLDL [Mass/Vol] 16 mg/dL 5-40 [facility] Work Phone: Serum or plasma low density lipoprotein (LDL) cholesterol measurement (mass/volume)on 02-27-2022 Cholesterol in LDL [Mass/Vol] 85 mg/dL 0-130 [facility] Work Phone: Thin prep Papanicolaou smear with manual screeningon 02-27-2022 Thin prep Papanicolaou smear with manual screening 22 U/L 15-37 [facility] Work Phone: Laboratory - Microbiology an d Antimicrobial susceptibilityon 11-12-2021 SARS-CoV-2 (COVID-19) RNA SWAPNA+probe Ql (Unsp spec) Not detected [facility] Work Phone: Vital Signs Date Time Vital Sign Value Performing Clinician Faci lity 07-10-2025 03:00-0400 Body temperature 98.6 [degF] Dr. Donato Roa MD Work Phone: [facility] 07-10-2025 03:00-0400 Diastolic blood pressure 83 mm[Hg] Dr. Donato Roa MD Work Phone: [facility] 07-10-2025 03:00-0400 Heart rate 109 /min Dr. Donato Roa MD Work Phone: [facility] 07-10-2025 03:00-0400 Respiratory rate 24 /min Dr. Donato Roa MD Work Phone: [facility] 07-10-2025 03:00-0400 SaO2% (BldA) [Mass fraction] 97 % Dr. Donato Roa MD Work Phone: [facility] 07-10-2025 03:00-0400 Systolic blood pressure 120 mm[Hg] Dr. Donato Roa MD Work Phone: [facility] 07-10-2025 00:22-0400 Body height 175.[address] Donato Roa MD Work Phone: [facility] 07-10-2025 00:22-0400 Body mass index (BMI) [Ratio] 25.1 kg/m2 Dr. Donato Roa MD Work Phone: [facility] 07-10-2025 00:22-0400 Body weight 77.[address] Donato Roa MD Work Phone: [facility] 03-29-2025 16:00-0400 Diastolic blood pressure 68 mm[Hg] Dr. Donato Roa MD Work Phone: [facility] 03-29-2025 16:00-0400 Heart rate 95 /min Dr. Donato Roa MD Work Phone: [facility] 03-29-2025 16:00-0400 SaO2% (BldA) [Mass fraction] 98 % Dr. Donato Roa MD Work Phone: [facility] 03-29-2025 16:00-0400 Systolic blood pressure 110 mm[Hg] Dr. Donato Roa MD Work Phone: [facility] 03-21-2025 16:34-0400 Body height 175.[address] Donato Roa MD Work Phone: [facility] 03-21-2025 16:34-0400 Body mass index (BMI) [Ratio] 25.2 kg/m2 Dr. Donato Roa MD Work Phone: [facility] 03-21-2025 16:34-0400 Body temperature 98.5 [degF] Dr. Donato Roa MD Work Phone: [facility] 03-21-2025 16:34-0400 Body weight 77.[address] Donato Roa MD Work Phone: [facility] 03-21-2025 16:34-0400 Diastolic blood pressure 60 mm[Hg] Dr. Donato Roa MD Work Phone: [facility] 03-21-2025 16:34-0400 Heart rate 80 /min Dr. Donato Roa MD Work Phone: [facility] 03-21-2025 16:34-0400 SaO2% (BldA) [Mass fraction] 97 % Dr. Donato Roa MD Work Phone: [facility] 03-21-2025 16:34-0400 Systolic blood pressure 100 mm[Hg] Dr. Donato Roa MD Work Phone: [facility] 08-30-2024 16:57-0400 Body height 175.3 cm Donato Roa MD Work Phone: [facility] 08-30-2024 16:57-0400 Body mass index (BMI) [Ratio] 25.7 kg/m2 Donato Roa MD Work Phone: [facility] 08-30-2024 16:57-0400 Body temperature 97.59 [degF] Donato Roa MD Work Phone: [facility] 08-30-2024 16:57-0400 Body weight 78.93 kg Donato Roa MD Work Phone: [facility] 08-30-2024 16:57-0400 Diastolic blood pressure 82 mm[Hg] Donato Roa MD Work Phone: [facility] 08-30-2024 16:57-0400 Heart rate 70 /min Donato Roa MD Work Phone: [facility] 08-30-2024 16:57-0400 Respiratory rate 18 /min Donato Roa MD Work Phone: [facility] 08-30-2024 16:57-0400 SaO2% (BldA) [Mass fraction] 97 % Donato Roa MD Work Phone: [facility] 08-30-2024 16:57-0400 Systolic blood pressure 126 mm[Hg] Donato Roa MD Work Phone: [facility] 02-25-2024 17:11-0400 Body height 175.3 cm Donato Roa MD Work Phone: [facility] 02-25-2024 17:11-0400 Body temperature 97.59 [degF] Donato Roa MD Work Phone: [facility] 02-25-2024 17:11-0400 Body weight 81.19 kg Donato Roa MD Work Phone: [facility] 02-25-2024 17:11-0400 Diastolic blood pressure 80 mm[Hg] Donato Roa MD Work Phone: [facility] 02-25-2024 17:11-0400 Heart rate 76 /min Donato Roa MD Work Phone: [facility] 02-25-2024 17:11-0400 Respiratory rate 18 /min Donato Roa MD Work Phone: [facility] 02-25-2024 17:11-0400 SaO2% (BldA) [Mass fraction] 97 % Donato Roa MD Work Phone: [facility] 02-25-2024 17:11-0400 Systolic blood pressure 128 mm[Hg] Donato Roa MD Work Phone: [facility] 08-20-2023 16:36-0400 Body height 175.3 cm Donato Roa MD Work Phone: [facility] 08-20-2023 16:36-0400 Body temperature 98.6 [degF] Donato Roa MD Work Phone: [facility] 08-20-2023 16:36-0400 Body weight 80.74 kg Donato Roa MD Work Phone: [facility] 08-20-2023 16:36-0400 Diastolic blood pressure 86 mm[Hg] Donato Roa MD Work Phone: [facility] 08-20-2023 16:36-0400 Heart rate 77 /min Donato Roa MD Work Phone: [facility] 08-20-2023 16:36-0400 Respiratory rate 14 /min Donato Roa MD Work Phone: [facility] 08-20-2023 16:36-0400 SaO2% (BldA) [Mass fraction] 98 % Donato Roa MD Work Phone: [facility] 08-20-2023 16:36-0400 Systolic blood pressure 122 mm[Hg] Donato Roa MD Work Phone: [facility] 05-12-2023 15:15-0400 Body height 175.26 cm [facility] 05-12-2023 15:15-0400 Body mass index (BMI) [Ratio] 25.1 kg/m2 [facility] 05-12-2023 15:15-0400 Body temperature 97.6 [degF] [facility] 05-12-2023 15:15-0400 Body weight 77.11 kg [facility] 05-12-2023 15:15-0400 Diastolic blood pressure 87 mm[Hg] [facility] 05-12-2023 15:15-0400 Heart rate 108 /min [facility] 05-12-2023 15:15-0400 Respiratory rate 16 /min [facility] 05-12-2023 15:15-0400 SaO2% (BldA) [Mass fraction] 96 % [facility] 05-12-2023 15:15-0400 Systolic blood pressure 134 mm[Hg] [facility] 08-21-2022 16:32-0400 Body height 175.3 cm Donato Roa MD Work Phone: [facility] 08-21-2022 16:32-0400 Body temperature 97.5 [degF] Donato Roa MD Work Phone: [facility] 08-21-2022 16:32-0400 Body weight 79.11 kg Donato Roa MD Work Phone: [facility] 08-21-2022 16:32-0400 Diastolic blood pressure 78 mm[Hg] Donato Roa MD Work Phone: [facility] 08-21-2022 16:32-0400 Heart rate 75 /min Donato Roa MD Work Phone: [facility] 10-05-2022 16:32-0400 Respiratory rate 14 /min Donato Roa MD Work Phone: [facility] 08-21-2022 16:32-0400 SaO2% (BldA) [Mass fraction] 97 % Donato Roa MD Work Phone: [facility] 08-21-2022 16:32-0400 Systolic blood pressure 126 mm[Hg] Donato Roa MD Work Phone: [facility] 02-18-2022 18:50-0400 Body temperature 96.8 [degF] Christopher Stetler DO Work Phone: [facility] 02-18-2022 18:50-0400 Body weight 78.25 kg Christopher Stetler DO Work Phone: [facility] 02-18-2022 18:50-0400 Diastolic blood pressure 74 mm[Hg] Christopher Stetler DO Work Phone: [facility] 02-18-2022 18:50-0400 Heart rate 86 /min Christopher Stetler DO Work Phone: [facility] 02-18-2022 18:50-0400 Respiratory rate 14 /min Christopher Stetler DO Work Phone: [facility] 02-18-2022 18:50-0400 Systolic blood pressure 125 mm[Hg] Christopher Stetler DO Work Phone: [facility] Encounters Encounter Date Encounter Type Care Provider Facility Start: 07-10-2025 End: 07-11-2025 Patient encounter procedure [facility] Start: 07-10-2025 End: 07-10-2025 Emergency department patient visit Dr. Donato Roa MD Work Phone: -Emergency Department Work Phone: Start: 06-14-2025 End: 06-19-2025 Telephone encounter Donato Roa MD Work Phone: [facility] Comment on above: Orders Start: 03-29-2025 End: 03-29-2025 Patient encounter procedure [facility] Work Phone: Start: 03-29-2025 End: 03-29-[address] Donato Roa MD Work Phone: [facility] Work Phone: Start: 03-21-2025 End: 03-21-[address] Donato Roa MD Work Phone: [facility] Work Phone: Start: 03-21-2025 End: 03-21-2025 Patient encounter procedure [facility]upinder [facility] Work Phone: Start: 03-21-2025 End: 03-21-2025 ambulatory Bhupinder [facility] Facility:[facility] Start: 08-30-2024 End: 08-30-2024 Patient encounter status Donato Roa MD Work Phone: [facility] Work Phone: Start: 08-30-2024 End: 08-30-2024 Periodic preventive med est patient 40-64yrs Donato Roa MD Work Phone: [facility] Comment on above: Wellness examination (Primary Dx); Screening for depression; Encounter for screening examination for other mental health and behavioral disorders; Pure hypercholesterolemia Start: 08-30-2024 End: 08-30-2024 ambulatory DONATO ROA Facility:[id number] Start: 08-23-2024 ambulatory Health Risk Assessment Facility:[facility] Start: 08-23-2024 End: 08-23-2024 ambulatory Donato Roa Facility:[facility] Start: 08-03-2024 End: 08-03-2024 Telephone encounter Donato Roa MD Work Phone: [facility] Comment on above: Orders Start: 02-27-2024 End: 02-27-2024 ambulatory [facility] Work Phone: Start: 02-27-2024 End: 02-27-2024 Patient encounter procedure [facility] Work Phone: Start: 02-25-2024 End: 02-25-2024 Office outpatient visit 15 minutes Donato Roa MD Work Phone: [facility] Comment on above: Pure hypercholestero lemia (Primary Dx); Allergic rhinitis due to pollen, unspecified seasonality Start: 08-20-2023 End: 08-20-2023 Patient encounter status Donato Roa MD Work Phone: [facility] Work Phone: Start: 08-20-2023 End: 08-20-2023 Periodic preventive med est patient 40-64yrs Donato Roa MD Work Phone: [facility] Comment on above: Wellness examination (Primary Dx); Pure hypercholesterolemia; Allergic rhinitis due to pollen, unspecified seasonality Start: 08-12-2023 End: 08-12-2023 ambulatory [facility] Work Phone: Start: 08-12-2023 End: 08-12-2023 Patient encounter procedure [facility] Work Phone: Start: 08-12-2023 [facility] Start: 07-28-2023 Telephone encounter Donato Roa MD Work Phone: [facility] Start: 05-12-2023 End: 05-12-2023 Emergency department patient visit [facility] Start: 05-12-2023 Patient encounter procedure [facility] Department Start: 10-31-2022 Telephone encounter Donato Roa MD Work Phone: [facility] Comment on above: Patient Question (BI LLING CHARGES) Start: 08-21-2022 End: 08-21-2022 Patient encounter status Donato Roa MD Work Phone: [facility] Start: 08-21-2022 End: 08-21-2022 Periodic preventive med est patient 40-64yrs Donato Roa MD Work Phone: [facility] Comment on above: Wellness examination (Primary Dx); Pure hypercholesterolemia Start: 08-21-2022 Telephone encounter Osama Mitr i Work Phone: [facility] Comment on above: Patient Question Start: 08-16-2022 Chart abstracting Cesarjanelle Chavarria Barbara DO Work Phone: [facility] Start: 08-16-2022 Patient encounter status Jozef Bravoyoni DO Work Phone: [facility] Start: 08-12-2022 Patient encounter status Osama Mitri Work Phone: [facility] Start: 08-12-2022 Telephone encounter Osama Mitr i Work Phone: [facility] Comment on above: Orders Start: 02-27-2022 End: 02-27-[address] Donato Roa Work Phone: [facility] Start: 01-08-[address] Bernardo Roa Work Phone: [facility] Start: 11-12-2021 End: 11-12-[address] [facility] Procedures Date Procedure Procedure Detail Performing Clinician Start: 07-10-2025 CT cervical spine wi thout contrast Dr. Donato Roa MD Work Phone: Start: 07-10-2025 CT of head without contrast Dr. Donato Roa MD Work Phone: Start: 07-10-[address] Donato Roa MD Work Phone: Start: 03-21-2025 Plain X-ray of tibia and fibula Dr. Donato Roa MD Work Phone: Start: 03-21-2025 X-ray of ankle, thre e or more views Dr. Donato Roa MD Work Phone: Start: 08-30-2024 Adult depression scr eening assessment Donato Roa MD Work Phone: Start: 07-17-2017 Colonoscopy Donato corley MD Work Phone: Plan of Treatment Date Care Activity Detail Author Start: 05-08-2031 Urine microalbumin profile [facility] Start: 07-17-2027 Colonoscopy Colonoscopy [facility] Start: 07-17-2027 Colorectal Cancer Screening Colorectal Cancer Screening [facility] Start: 07-17-2027 Screening for malignant neoplasm of colon [facility] Start: 08-30-2025 Anxiety Screening Anxiety Screening [facility] Start: 08-30-2025 Depression Screening Depression Screening [facility] Start: 08-24-2025 End: 08-24-2025 Patient encounter procedure 08/24/2025 4:30 PM EDT Office Visit [facility] [address] [place] [address] Donato Roa MD [address] [place] [address] Annual Commercial Wellness [facility] Comment on above: Annual Commercial Wellness Start: 07-18-2025 Influenza vaccination Influenza Vaccine (#1) [facility] Start: 07-10-2025 [facility] Start: 06-19-2025 End: 09-18-2025 PSA/PROSTATE SPECIFIC ANTIGEN SCREENING PSA/PROSTATE SPECIFIC ANTIGEN SCREENING Lab Routine Screening PSA (prostate specific antigen) Expected: 06/19/2025, Expires: 09/18/2025 [facility] Work Phone: Comment on above: Expected: 06/19/2025, Expires: Start: 02-28-2025 End: 02-28-2025 Patient encounter procedure 02/28/2025 5:00 PM EDT Office Visit [facility] [address] [place] [phone] Donato Roa MD [address] [place] [address] 6 Month Follow Up [facility] Comment on above: 6 Month Follow Up Start: 08-30-2024 End: 08-30-2024 Patient encounter procedure 08/30/2024 5:00 PM EDT Office Visit [facility] [address] [place] [phone] Donato Roa MD [address] [place] [address] Annual Wellness Exam [facility] Comment on above: Annual Wellness Exam Start: 08-03-2024 End: 11-02-2024 PSA/PROSTATE SPECIFIC ANTIGEN SCREENING PSA/PROSTATE SPECIFIC ANTIGEN SCREENING Lab Routine Screening PSA (prostate specific antigen) Expected: 08/03/2024, Expires: 11/02/2024 [facility] Work Phone: Comment on above: Expected: 08/03/2024, Expires: 4 Start: 07-18-2024 Influenza vaccination Influenza Vaccine (#1) [facility] Start: 02-25-2024 End: 05-26-2024 Comprehensive metabolic 2000 panel - Serum or Plasma COMPREHENSIVE METABOLIC PANEL Lab Routine Pure hypercholesterolemia Expected: 02/25/2024, Expires: 05/26/2024 [facility] Work Phone: Comment on above: Expected: 02/25/2024, Expires: 4 Start: 02-25-2024 End: 05-26-2024 Lipid 1996 panel - Serum or Plasma LIPID PANEL BASIC Lab Routine Pure hypercholesterolemia Expected: 02/25/2024, Expires: 05/26/2024 [facility] Work Phone: Comment on above: Expected: 02/25/2024, Expires: 4 Start: 11-17-2023 Behavioral Health Screening Behavioral Health Screening [facility] Start: 07-18-2023 Influenza vaccination INFLUENZA (#1) [facility] Start: 11-17-2022 DEPRESSION ASSESSMENT DEPRESSION ASSESSMENT [facility] Start: 08-13-2022 End: 10-13-2022 CBC W Auto Differential panel - Blood CBC + DIFF Lab Routine Screening for deficiency anemia Expected: 08/13/2022, Expires: 10/13/2022 [facility] Work Phone: Comment on above: Expected: 08/13/2022, Expires: 2 Start: 08-13-2022 End: 10-13-2022 Comprehensive metabolic 2000 panel - Serum or Plasma COMP METABOLIC PANEL Lab Routine Wellness examination Expected: 08/13/2022, Expires: 10/13/2022 [facility] Work Phone: Comment on above: Expected: 08/13/2022, Expires: 2 Start: 08-13-2022 End: 10-13-2022 Lipid 1996 panel - Serum or Plasma LIPID PANEL BASIC Lab Routine Lipid screening Expected: 08/13/2022, Expires: 10/13/2022 [facility] Work Phone: Comment on above: Expected: 08/13/2022, Expires: 2 Start: 08-13-2022 End: 10-13-2022 PSA/PROSTSPECAG SCRN PSA/PROSTSPECAG SCRN Lab Routine Screening PSA (prostate specific antigen) Expected: 08/13/2022, Expires: 10/13/2022 [facility] Work Phone: Comment on above: Expected: 08/13/2022, Expires: 2 Start: 07-18-2022 Influenza vaccination INFLUENZA (#1) [facility] Start: 2022 PROSTATE CANCER SCREENING DISCUSSION PROSTATE CANCER SCREENING DISCUSSION [facility] Start: 2022 Prostate specific antigen measurement Prostate Cancer Screening Discussion [facility] Start: 11-17-2021 DEPRESSION ASSESSMENT DEPRESSION ASSESSMENT [facility] Start: 2017 Pneumococcal Vaccine: 50+ (1 of 1 - PCV) Pneumococcal Vaccine: 50+ (1 of 1 - PCV) [facility] Start: 2017 SHINGRIX VACCINE (1 of 2) SHINGRIX VACCINE (1 of 2) [facility] Start: 2012 COLOGUARD (FIT-DNA) COLOGUARD (FIT-DNA) [facility] Start: 2012 Colonoscopy COLONOSCOPY [facility] Start: 2012 COLORECTAL CANCER SCREENING COLORECTAL CANCER SCREENING [facility] Start: [address] COLONOGRAPHY [facility] Start: 2012 DIABETES SCREEN DIABETES SCREEN [facility] Start: 2012 Diabetes Screening Diabetes Screening [facility] Start: 2012 FECAL OCCULT BLOOD FECAL OCCULT BLOOD [facility] Start: 2012 Prostate specific antigen measurement Prostate Cancer Screening Discussion [facility] Start: 2012 Screening for malignant neoplasm of colon [facility] Start: 2012 SIGMOIDOSCOPY SIGMOIDOSCOPY [facility] Start: 2002 Lipid 1996 panel - Serum or Plasma Lipid Screening [facility] Start: 2002 Lipid panel Lipid Screening [facility] Start: 2002 LIPID SCREEN LIPID SCREEN [facility] Start: 1986 Hepatitis B Vaccine (1 of 3 - 19+ 3-dose series) Hepatitis B Vaccine (1 of 3 - 19+ 3-dose series) [facility] Start: 1986 Urine microalbumin profile DTAP,TDAP,TD (1 - Tdap) [facility] Start: 1985 Anxiety Screening Anxiety Screening [facility] Start: 1985 Depression Screening Depression Screening [facility] Start: 1985 HEPATITIS C SCREENING HEPATITIS C SCREENING [facility] Start: 1985 Hepatitis C screening Hepatitis C Screening [facility] Start: 1985 HIV SCREENING HIV SCREENING [facility] Start: 1985 HIV screening HIV Screening [facility] Start: 1967 COVID-19 VACCINE (#1) COVID-19 VACCINE (#1) [facility] Start: 1967 HEPATITIS B (1 of 3 - 3-dose series) HEPATITIS B (1 of 3 - 3-dose series) [facility] Start: 1967 Hepatitis B Vaccine (1 of 3 - 3-dose series) Hepatitis B Vaccine (1 of 3 - 3-dose series) [facility] Patient Education [facility] Work Phone: Patient referral [facility] Work Phone: [facility] Immunizations Immunization Date Immunization Notes Care Provider Fa cili 08-06-2024 Covid (Spikevax) Dr. Donato Roa MD Work Phone: [facility] 08-06-2024 influenza, seasonal, injectable, preservative free Donato Roa MD Work Phone: [facility] 08-06-2024 influenza virus vaccine, unspecified formulation Donato Roa MD Work Phone: [facility] 09-04-2023 Covid (Spikevax) [facility] 08-14-2023 influenza, injectabl e, quadrivalent, preservative free [facility] 08-14-2023 influenza virus vaccine, unspecified formulation Donato Roa MD Work Phone: [facility] 08-16-2022 influenza, injectabl e, quadrivalent, preservative free [facility] 08-16-2022 influenza, seasonal, injectable Osama Mitri Work Phone: [facility] 08-02-2022 Covid Moderna Bivale nt Booster [facility] 09-19-2021 Covid (Moderna) Dr. Donato Roa Work Phone: [facility] 09-03-2021 influenza nasal, unspecified formulation Janes ePgueror DO Work Phone: [facility] 09-03-2021 influenza virus vaccine, unspecified formulation Osama Mitri Work Phone: [facility] 08-14-2021 influenza, injectabl e, quadrivalent, preservative free [facility] 08-14-2021 influenza, seasonal, injectable Dr. Donato Roa Work Phone: [facility] 08-14-2021 influenza, seasonal, injectable, preservative free Osama Mitri Work Phone: [facility] 05-08-2021 tetanus toxoid, reduced diphtheria toxoid, and acellular pertussis vaccine, adsorbed Dr. Donato Roa Work Phone: [facility] 12-18-2020 Covid (Moderna) Dr. Donato Roa Work Phone: [facility] 11-20-2020 Covid (Moderna) Dr. Donato Roa Work Phone: [facility] 08-22-2020 influenza nasal, unspecified formulation Janes Jimenez DO Work Phone: [facility] 08-15-2020 influenza, injectabl e, quadrivalent, preservative free [facility] 08-15-2020 influenza, seasonal, injectable Dr. Donato Roa Work Phone: [facility] 08-15-2020 influenza, seasonal, injectable, preservative free Donato Roa MD Work Phone: [facility] 08-31-2018 influenza, injectabl e, quadrivalent, preservative free [facility] 08-31-2018 influenza, seasonal, injectable Dr. Donato Roa Work Phone: [facility] 09-10-2017 influenza, injectabl e, quadrivalent, preservative free [facility] 09-10-2017 influenza, seasonal, injectable Dr. Donato Roa Work Phone: [facility] 08-15-2016 influenza, injectabl e, quadrivalent, preservative free [facility] 08-15-2016 influenza, seasonal, injectable Dr. Donato Roa Work Phone: [facility] 08-15-2016 influenza, seasonal, injectable, preservative free Donato Roa MD Work Phone: [facility] 10-02-2015 influenza, injectabl e, quadrivalent, preservative free [facility] 10-02-2015 influenza, seasonal, injectable Dr. Donato Roa Work Phone: [facility] 08-04-2014 influenza, injectabl e, quadrivalent, preservative free [facility] 08-04-2014 influenza, seasonal, injectable Dr. Donato Roa Work Phone: [facility] 08-04-2014 influenza, seasonal, injectable, preservative free Donato Roa MD Work Phone: [facility] Payers Date Payer Category Payer Unknown [id number] 2025 Unknown [id number] 2024 Self-pay [id number] 2022 Unknown [id number] 2022 Unknown MMO MMO TPA [id number] 2022-Present [address] [place] [address] PPO [id number] 2021 Private Health Insurance [id number] 2016 Unknown [id number] Unknown [id number] 2 Unknown [id number] 2 Unknown [id number] 2 Unknown [id number] 2 Unknown [id number] 2 Unknown [id number] 2 Social History Date Type Detail Facility Start: 10-22-2019 End: 05-12-2023 Tobacco smoking status NHIS Unknown if ever smoked [facility] Start: 09-23-2019 With Family Mauro Israel [facility] Start: 1965 Sex Assigned At Male [facility] Start: 08-21-2022 End: 07-10-2025 Tobacco smoking status NHIS Never smoked tobacco [facility] Start: 01-29-2007 End: 08-30-2024 Alcohol intake Current drinker of alcohol (finding) [facility] Start: 1965 Sex Assigned At Not on file [facility] Start: 08-21-2022 Tobacco use and exposure Smokeless tobacco non-user [facility] Start: 08-21-2022 History SDOH Alcohol Frequency 4 [facility] Start: 08-21-2022 History SDOH Alcohol Std Drinks 1 [facility] Start: 08-21-2022 History SDOH Social Connections Phone 5 [facility] Start: 08-21-2022 History SDOH Social Connections Get Together 3 [facility] Start: 08-21-2022 History SDOH Social Connections Membership 2 [facility] Start: 08-21-2022 History SDOH Physica l Activity DPW 7 [facility] Start: 08-21-2022 Education 21 [facility] Start: 08-11-2022 End: 08-21-2022 Exposure to SARS-CoV-2 (event) Not sure [facility] Start: 08-21-2022 End: 08-20-2023 History of Social function [facility] Start: 08-21-2022 End: 08-20-2023 Social connection and isolation panel [facility] Do you belong to any clubs or organizations such as anabaptism groups, unions, fraternal or athletic groups, or school groups? No [facility] Are you now , , , , never or living with a partner? [facility] How often to you hav e a drink containing alcohol? 2-3 time sa week [facility] How many standard drinks containing alcohol do you have on a typical day? 1 or 2 [facility] How often do you hav e 6 or more drinks on 1 occasion? Never [facility] Start: 10-18-2012 How hard is it for y ou to pay for the very basics like food, housing, medical care, and heating Not hard at all [facility] Do you feel stress - tense, restless, nervous, or anxious, or unable to sleep at night because your mind is troubled all the time - these days [OSQ] Not at all [facility] (I/We) worried wheth er (my/our) food would run out before (I/we) got money to buy more. Never true [facility] Are you now , , , , never or living with a partner? Living with partner [facility] How many standard drinks containing alcohol do you have on a typical day? 3 or 4 [facility] Do you feel stress - tense, restless, nervous, or anxious, or unable to sleep at night because your mind is troubled all the time - these days [OSQ] Only a little [facility] Start: 08-20-2023 Gender identity Identifies as male gender (finding) [facility] Start: 08-20-2023 Sexual orientation Heterosexual (fin ding) [facility] How often to you hav e a drink containing alcohol? Monthly or less [facility] NEGATED: Highlighted rowStart: CARLOSF History of tobacco use Passive smoker [facility] Clinical Notes 12-11-2006 to 07-10-2025 Telephone Encounter - Erin Cervantes LPN - 06/16/2025 2:21 PM EDTTelephone Encounter - Erin Cervantes LPN - 06/16/2025 2:21 PM EDT Note Date & Type Note Facility 07-10-2025 Radiology Diagnostic study note [facility] Imaging Services [address] [place] [id number] Spine Cervical without Contras MR#: [id number] Acct: [id number] Name: SUKH GARCIA Rep #: [id number] : 1965 M 60 From: Lenka Casatneda MD PCP: Dr. Donato Roa MD Status: REG ER Study:Spine Cervical without Contras Date of Exam: 07/10/25 Exam# [id number] Ordering Dr: Martita Trujillo DO PROCEDURE: SPINE CERVICAL WITHOUT CONTRAS 07/10/2025 REASON FOR EXAM: INJURY TECHNIQUE: SPINE CERVICAL WITHOUT CONTRAS Coronal and Sagittal reconstruction series were provided. One or more dose reduction techniques were used (e.g., Automated exposure control, adjustment of the mA and/or kV according to patient size, use of iterative reconstruction technique. RADIATION DOSE SUMMARY: DLP: 1244 mGycm COMPARISON: none FINDINGS: No acute compression deformity, fracture, or subluxation. Mild multilevel degenerative changes with mild multilevel central canal stenosisand foraminal stenosis due to posterior disc-osteophyte complex, facet hypertrophy, and uncovertebral hypertrophy. No high-grade central canal stenosis. The prevertebral soft tissues are not thickened. Thyroid is unremarkable. Limited sections of the lung apices demonstrate no pneumothorax. CT/Spine Cervical without Contras IMPRESSION: No acute cervical fracture or subluxations. Reading Location: [facility] CC: Dr. Donato Roa MD; Timi Trujillo DO ~ Key Punch Operator: Signed [facility] 07-10-2025 Radiology Diagnostic study note [facility] Imaging Services [address] [place] [address] Brain/Head without Contrast MR#: [id number] Acct: [id number] Name: SUKH GARCIA Rep #: [id number] : 1965 M 60 From: Lenka Castaneda MD PCP: Dr. Donato Roa MD Status: REG ER Study:Brain/Head without Contrast Date of Exa m: 07/10/25 Exam# [id number] Ordering Dr: Martita Trujillo DO PROCEDURE: BRAIN/HEAD WITHOUT CONTRAST 07/10/2025 REASON FOR EXAM: HEAD INJURY TECHNIQUE: BRAIN/HEAD WITHOUT CONTRAST Coronal and Sagittal reconstruction series were provided. One or more dose reduction techniques were used (e.g., Automated exposure control, adjustment of the mA and/or kV according to patient size, use of iterative reconstruction technique. RADIATION DOSE SUMMARY: DLP: 1244 mGycm COMPARISON: None FINDINGS: There is no acute infarct, intracranial hemorrhage, or mass effect. There is no hydrocephalus or significant midline shift. No acute, depressed calvarial fractures. No large scalp hematomas. The paranasal sinuses are clear. CT/Brain/Head without Contrast IMPRESSION: No acute intracranial process. Reading Location: [facility] CC: Dr. Donato Roa MD; DO Beba Lundberg Key Punch Operator: Signed [facility] 06-16-2025 Telephone encount er Note Please sign order. Erin Cervantes LPN June 16, 2025 2:21 PM [facility] 06-16-2025 Miscellaneous Notes Formattin g of this note might be different from the original. Please sign order. Erin Cervantes LPN June 16, 2025 2:21 PM Sukh Fernandez Jose called today. : 1965 Allergies: Shellfish Containing Products (home) [phone] (work) [phone] (cell) Reason for call: Sukh called to ask for a PSA lab order. He has an upcoming appointment with Dr Roa on 08/24/2025. His employer ([facility]) always orders annual blood tests which [...] an answer. If approved please fax to #[phone] [facility]. Patient last appointment: 08/30/2024 Next appointment 08/2025 The patients preferred pharmacy has been captured for this encounter? no Erin Cervantes LPN documented in this encounter [facility] 06-14-2025 Telephone encount er Note Sukh Garcia called today. : 1965 Allergies: Shellfish Containing Products (home) [phone] (work) [phone] (cell) Reason for call: Sukh called to ask for a PSA lab order. He has an upcoming appointment with Dr Roa on 08/24/2025. His employer ([facility]) always orders annual blood tests which [...] an answer. If approved please fax to #[phone] [facility]. Patient last appointment: 08/30/2024 Next appointment 08/2025 The patients preferred pharmacy has been captured for this encounter? no Erin Cervantes LPN [facility] 03-21-2025 Evaluation note Diagnosis Onset Date Resolution Abrasion, left lower leg, initial encounter acute March 21, 2025 4:28pm Contusion of left lower leg acute March 21, 2025 4: 28pm [facility] Work Phone: 1(685) 499-247405-05-2025 Radiology Diagnostic study note [facility] Imaging Services [address] [place], [place] [id number] Tibia & Fibula 2 Views MR#: [id number] Acct: [id number] Name: SUKH GARCIA Rep #: [id number] : 1965 M 60 From: Denise Santana MD PCP: Dr. Donato Roa MD Status: REG CLI Study:Tibia & Fibula 2 Views Date of Exam: 03/21/25 Exam# [id number] Ordering Dr: St rebekah Borges EXAM: LEFT AND FIBULA CLINICAL HISTORY: INJURY. COMPARISON: NO RELEVANT PRIOR. TECHNIQUE: AP and lateral views. FINDINGS: Bones: No fractures or other osseous abnormalities. Joints: No subluxations or dislocations. Soft tissues: Unremarkable. RAD/Tibia & Fibula 2 Views IMPRESSION: 1. No acute osseous findings. Reading Location: [facility] CC: Dr. Donato Roa MD; GABBIE Benedict ~ Key Punch Operator: Signed [facility]05-05-2025 Radiology Diagnostic study note [facility] Imaging Services [address] [place] [address] [id number] Ankle min 3 Views MR#: [id number] Acct: [id number] Name: SUKH GARCIA Rep #: [id number] : 1965 M 60 From: Denise Santana MD PCP: Dr. Donato Roa MD Status: REG CLI Study:Ankle min 3 Views Date of Exam: Exam# [id number] Ordering Dr: St rebekah Borges PROCEDURE: LEFT ANKLE MIN 3 VIEWS 03/21/2025 REASON FOR EXAM: PAIN TECHNIQUE: 3 views of the LEFT ankle COMPARISON: No relevant prior. FINDINGS: Bones: No fractures or other osseous abnormalities. Joints: No subluxations or dislocations. Soft tissues: Unremarkable. RAD/Ankle min 3 Views IMPRESSION: No acute osseous findings. Reading Location: [facility] CC: Dr. Donato Roa MD; GABBIE Benedict ~ Key Punch Operator: Signed [facility]10-16-2024 NoteHNO ID: [id number] Author: DONATO ROA MD Service: ? Author [...] Maintain good diet. Follow-up in 6 months. [facility]10-16-2024 History of Present illness Narrative* Donato Roa [...] Prostate Cancer Screening Discussion declined Influenza Vaccine(1) [facility] Covid-19 Vaccine( season)[facility] Samina Aj LPN August 30, 2024 5:00 PM documented in this encounterM[facility]10-14-[facility]24 NoteHNO ID: [id number] Author: SAMINA AJ LPN Service: ? Author Type: LICENSED NURSE Type: Progress Notes Filed: 09/01/2024 10:10 Note Text: [employer]INTENANCE Hepatitis C Screening declined HIV Screening declined Hepatitis B Vaccine(1 of 3 - 19+ 3-dose series) declined Lipid Screening Diabetes Screening Shingrix Vaccine(1 of 2) declined Prostate Cancer Screening Discussion declined Influenza Vaccine(1) [facility] Covid-19 Vaccine( season)[facility] Samina Aj LPN August 30, 2024 5:00 [facility] Telephone encounter Note * Telephone Encounter - Erin Cervantes LPN - 08/03/2024 12:20 PM EDT PSA order faxed to [facility] fax#[phone]. Patient Sukh notified. Erin Cervantes LPN August 03, 2024 12:21 PM [facility]09-17-[facility]24 Miscellaneous Notes* Telephone Encounter - Erin Cervantes LPN - 08/03/2024 12:20 PM EDT PSA order faxed to [facility] fax#[phone]. Patient Sukh notified. Erin Cervantes LPN August 03, 2024 12:21 PM * Telephone Encounter - Donato Roa MD - 08/03/2024 10:59 AM EDT Order is signed * Telephone Encounter - Erin Cervantes LPN - 08/03/2024 10:28 AM EDT Sukh Garcia called today. : 1965 Allergies: Shellfish Containing Products (home) [phone] (work) [phone] (cell) Reason for call: Sukh called to ask for a PSA lab order. He has an upcoming appointment with Dr Roa on 08/30/2024.His employer ([employer]) always orders annual blood tests which he will be gettingdone prior to his upcoming appointment. Sukh said he will bring the lab results reports along with him to the appointment to go over with Dr Roa. PSA is not included in the the tests the [facility] orders. He would like to have the PSA added please. Dr Roa please sign the order is if agreeable. Please call patient back with an answer. If approved please fax to #[phone] [facility]. Patient last appointment: 02/25/2024 Next appointment 08/30/2024 The patients preferred pharmacy has been captured for this encounter? no Erin Cervantes LPN documented in this encounterMarietta [facility] Clinic09-17-2024 Telephone encounter Note * Telephone Encounter - Donato Roa MD - 08/03/2024 10:59 AM EDT Order is signed [facility]09-17-2024 Telephone encounter Note* Telephone Encounter - Erin Cervantes LPN - 08/03/2024 10:28 AM EDT Sukh Garcia called today. : 1965 Allergies: Shellfish Containing Products (home) [phone] (work) [phone] (cell) Reason for call: Sukh called to ask for a PSA lab order. He has an upcoming appointment with Dr Roa on 08/30/2024.His employer ([employer]) always orders annual blood tests which [...] an answer. If approved please fax to #[phone] [facility]. Patient last appointment: 02/25/2024 Next appointment 08/30/2024 The patients preferred pharmacy has been captured for this encounter? no Erin Cervantes LPN [facility]04-11-2024 History of Present illness Narrative* Donato Roa MD - 02/26/2024 11:25 AM EDT Patient presents today for follow-up for multiple medical problems. See list. His chronic medical problems been stable. He is compliant with his medications. He has no new complaints today.This note was created using CompareAwayriter. Subjective Sukh Garcia is a 58 year [...] 25, 2024 5:15 PM documented in this encounterMari[facility]10-04-2023 History of Present illness Narrative* Donato oRa MD - 08/20/2023 5:18 PM EDT Subjective [...] 20, 2023 4:39 PM documented in this encounterMarietta [facility] Clinic06-26-[address] Rivera [facility] May 12, 2023 4:22pm Note Date/Time May 12, 2023 4:22 pm [facility] Medical Records Department [address] [place] [address] Emergency Department Summary 05/12/23 MR#: [id number] Acct: [id number] Name: SUKH GARCIA Rep #:[id number] : 1965 58 From: Raghav Rivera DO [...] dizziness, visual complaints, nausea. No neck pain. PFSH PFSH Medical History Hyperlipemia Home Medications atorvastatin 10 mg tablet 10 mg PO QHS 09/23/19 [History Last Taken Unknown] Allergy/AdvReac Type Severity Reaction Status Date / Time shellfish derived Allergy Angioedema Verified 06/26/23 15:17 Social History Smoking Status: Never smoker [...] amenable this plan. He will follow-up with [facility]. Impression: 1. 3 cm scalp laceration Discharge [...] your Primary Care Provider. Call [facility] ([phone]) or report to the closest Emergency Room. Call 911 if necessary. 05/12/231621 <Electronically signed by Raghav Rivera DO> Cosigner Signature (if applicable): CC: Dr. Donato Roa MD ~ Signed [facility] Work Phone: [phone] Miscellaneous Notes* Telephone Encounter - Dipika Griffith [...] has not rec'd the billyet. He contacted [facility] billing dept. They were unable to give him any answers. Is there a way for you to check and see if you charged anything extra for his visit on 08/21/2022? If not, is there someone else I can have patient get in contact with? Please advise. Dipika Griffith LPN October 31, 2022 4:46 PM documented in this encounterMarietta [facility] Clinic10-06-2022 History of Present illness Narrative* Donato Roa MD - 08/22/2022 2:50 PM EDT This note was created using Val[employer]. Subjective Sukh Garcia is a 57 year [...] his lab work previously completed at [facility]. Lab work reviewed with patient. documented in this encounterMarietta [facility] Clinic09-27-2022 Miscellaneous Notes* Telephone Encounter - Samina Aj LPN - 08/13/2022 9:51 AM EDT Patient notified Samina Aj LPN August 13, 2022 9:52 AM * Telephone Encounter - Samina Aj LPN - 08/12/2022 2:13 PM EDT [facility] Patient stated that he has to have labs drawn for working at [employer] this week. Patient requesting Dr. Roa to [...] already existig blood work? documented in this encounterMarietta [facility] Clinic01-25-2007 History of Past illness Narrative* Problem Noted Date Diagnosed Date Resolved Date Predominant disturbance of emotions 12/11/2006 02/26/2024 Dizziness and giddiness 12/11/200602/15 documented as of this encounter (statuses as of 02/26/2024) [facility]+Reason for visit Narrative* Chief Complaint COVID-19 [employer]ELF PA[employer] BU[employer]ER [facility] Work Phone: Evaluation noteNo assessment information available [facility] Work Phone: Evaluation note* Diagnosis Wellness examination- Primary Lipid screening Screening for lipoid disorders Screening for deficiency anemia Screening for other and unspecified deficiency anemia Screening PSA (prostate specific antigen) Special screening for malignant neoplasm of prostate documented in this encounter [facility]* Diagnosis Wellness examination- Primary Pure hypercholesterolemia documented in this encounter [facility]* Diagnosis Wellness examination- Primary Pure hypercholesterolemia Allergic rhinitis due to pollen, unspecified seasonality [facility] Diagnosis Pure hypercholesterolemia- Primary Allergic rhinitis due to pollen, unspecified seasonality documented in this encounter [facility]* Diagnosis Screening PSA (prostate specific antigen)- Primary Special screening for malignant neoplasm of prostate documented in this encounter [facility]* Diagnosis Wellness examination- Primary Screening for depression Encounter for screening examination for other mental health and behavioral disorders Pure hypercholesterolemia documented in this encounter [facility]* Diagnosis Screening PSA (prostate specific antigen)- Primary Special screening for malignant neoplasm of prostate [facility] Dis[facility] instructionsAdditional Instructions Please see your family doctor or return to the ER in 10 to 14 days for suture removal. Continue prednisone once a day for the next 5 days to help with allergic reaction and rash. You can take 2 mibt-zqf-ofhjcbi Benadryl at a time up to 3 times a day if needed as well. If you have reexposure and develop tongue or lip swelling or difficulty breathing or swallowing use your EpiPen and present to the ER for further evaluation.[facility] Work Phone: Reason for referral (narrative)No reason for referral information availableWParkview Health [facility] Work Phone: Advance Directives No Advanced Directives Records Found Advance Directive Response Recorded Date/ Time Living Will No September 23 4:18pm Power of Child Care Specialist No September 23, 2019 4:18pm Advance Directive Response Recorded Date/ Time Living Will No May 12, 2023 3:18pm Power of Child Care Specialist No May 12 3:18pm Advance Directive Response Recorded Date/ Time Do you have a Healthcare Power of Child Care Specialist? No July 10, 2025 12:25am Chief Complaint and Reason for Visit Chief Complaint lac Chief Complaint lac EMPLOYEE HEALTH Chief Complaint Admit Date pain- LEFT ANKLE/ ADD TIB/FIB March 21, 025 4:07pm L ANKLE INJURY/ [facility] March [...] / [facility] March 29, 2025 3:58p m Chief Complaint Admit Date pain- LEFT ANKLE/ ADD TIB/FIB March 21, 2 025 4:07pm L ANKLE INJURY/ [facility] March 21, 2025 4:28pm L ANKLE / [facility] March 29, 2025 3:58p m allergic reaction, head injury July 102024 12:21am Summary Purpose Family History No Family History [...] or prosecute any alcohol or drug abuse patient.[facility] ClinicIn the event this information is protected by the Federal Confidentiality of Alcohol and Drug Abuse Patient Records regulations: The Federal rules restrict any use of the information to criminally investigate or prosecute any alcohol or drug abuse patient.[facility] ClinicIn the event this information is protected by the Federal Confidentiality of Alcohol and Drug Abuse Patient Records regulations: The Federal rules restrict any use of the information to criminally investigate or prosecute any alcohol or drug abuse patient.[facility] ClinicIn the event this information is protected by the Federal Confidentiality of Alcohol and Drug Abuse Patient Records regulations: The Federal rules restrict any use of the information to criminally investigate or prosecute any alcohol or drug abuse patient.[facility] ClinicIn the event this information is protected by the Federal Confidentiality of Alcohol and Drug Abuse Patient Records regulations: The Federal rules restrict any use of the information to criminally investigate or prosecute any alcohol or drug abuse patient.[facility] ClinicIn the event this information is protected by the Federal Confidentiality of Alcohol and Drug Abuse Patient Records regulations: The Federal rules restrict any use of the information to criminally investigate or prosecute any alcohol or drug abuse patient.[facility] ClinicIn the event this information is protected by the Federal Confidentiality of Alcohol and Drug Abuse Patient Records regulations: The Federal rules restrict any use of the information to criminally investigate or prosecute any alcohol or drug abuse patient.[facility] ClinicIn the event this information is protected by the Federal Confidentiality of Alcohol and Drug Abuse Patient Records regulations: The Federal rules restrict any use of the information to criminally investigate or prosecute any alcohol or drug abuse patient.[facility] ClinicIn the event this information is protected by the Federal Confidentiality of Alcohol and Drug Abuse Patient Records regulations: The Federal rules restrict any use of the information to criminally investigate or prosecute any alcohol or drug abuse patient.[facility] ClinicIn the event this information is protected by the Federal Confidentiality of Alcohol and Drug Abuse Patient Records regulations: The Federal rules restrict any use of the information to criminally investigate or prosecute any alcohol or drug abuse patient.[facility] ClinicIn the event this information is protected by the Federal Confidentiality of Alcohol and Drug Abuse Patient Records regulations: The Federal rules restrict any use of the information to criminally investigate or prosecute any alcohol or drug abuse patient.[facility] ClinicIn the event this information is protected by the Federal Confidentiality of Alcohol and Drug Abuse Patient Records regulations: The Federal rules restrict any use of the information to criminally investigate or prosecute any alcohol or drug abuse patient.[facility] ClinicIn the event this information is protected by the Federal Confidentiality of Alcohol and Drug Abuse Patient Records regulations: The Federal rules restrict any use of the information to criminally investigate or prosecute any alcohol or drug abuse patient.[facility] Reason for Visit (unrecogniz ed section and content) Reason Comments Orders Reason Comments Patient Question Reason Comments Physical CPE pt would like to discuss lab results Reason Comments Patient Question BILLING CHARGES Reason Comments Yearly Exam Wellness CPE Specialty Diagnoses / Procedures Referred By Contalicja t Referred To Contact Family Medicine / FAMILY MEDICINE Diagnoses Annual physical exam Yearly Wellness Procedures OFFICE/OUTPATIENT ESTABLISHED HIGH MDM 40-54 MIN EST WELL VISIT Donato Roa MD [address] [place] [address] Donato Roa MD [address] [place] [address] Referral ID Status Reason Start Date Expiration Date Visits Re quested Visits Authorized [id number] Closed 07/31/2023 11/16/2023 1 1 Reason Comments 6 Month Exam Reason Comments Wellness Care Teams (unrecognized sec tion and content) Liquid Waste Treatment Plant Operator Relationship Specialty Start Date End Date Mitfaisal Osama PCP - General 01/26/07 Liquid Waste Treatment Plant Operator Relationship Specialty Start Date End Date Mitfaisal Osama PCP - General 01/26/07 Liquid Waste Treatment Plant Operator Relationship Specialty Start Date End Date Mitri Osama PCP - General 01/26/07 Liquid Waste Treatment Plant Operator Relationship Specialty Start Date End Date Mitri Osama PCP - General 01/26/07 Liquid Waste Treatment Plant Operator Relationship Specialty Start Date End Date Donato Roa MD [address] [place], [place] [id number] PCP - General Family Medicine 10/31/22 Team Status: Active Member Role Status Dates Dr. Donato Roa MD Family Provider Active Dr. Donato Roa MD Primary Care Provider Active Team Status: Inactive Member Role Status Dates Dr. Donato Roa MD Primary Care Provider Active Dr. Raghav Rivera DO Emergency Provider Active Liquid Waste Treatment Plant Operator Relationship Specialty Start Date End Date Donato Roa MD [address] [place], [place] [address] PCP - General Family Medicine 10/31/22 Liquid Waste Treatment Plant Operator Relationship Specialty Start Date End Date Donato Roa MD [address] [place] [address] PCP - General Family Medicine 10/31/22 Team [...] Prov ider, Attending Provider, Referring Provider Active [employer] Waste Treatment Plant Operator Relationship Specialty Start Date End Date Donato Roa MD [address] [place] [address] PCP - General Family Medicine 10/31/22 Sudarshan Shelton MD [address] [facility] [address] [place] [address] Gastroenterology 07/17/17 Liquid Waste Treatment Plant Operator Relationship Specialty Start Date End Date Donato Roa MD [address] [place] [address] PCP - General Family Medicine 10/31/22 Sudarshan Shelton MD [address] [facility] [address] [place] [address] Gastroenterology 07/17/17 Liquid Waste Treatment Plant Operator Relationship Specialty Start Date End Date Donato Roa MD [address] [place] [address] PCP - General Family Medicine 10/31/22 Sudarshan Shelton MD [address] [facility] [address] [place] [address] Gastroenterology 07/17/17 Team Status: Inactive Member Role Status Dates Dr. Donato Roa MD Primary Care Provider Active Start: March 21, 2025 End: March 21, 2025 Bhupinder CARTWRIGHT PA Attending Provider Active Start: March 21, 2025 [...] March 29, 2025 End: March 29, 2025 Liquid Waste Treatment Plant Operator Relationship Specialty Start Date End Date Donato Roa MD [address] [place] [address] PCP - General Family Medicine 10/31/22 Sudarshan Shelton MD [address] [facility] [address] [place] [address] Gastroenterology 07/17/17 Liquid Waste Treatment Plant Operator Relationship Specialty Start Date End Date Donato Roa MD [address] [place] [address] PCP - General Family Medicine 10/31/22 Sudarshan Shelton MD [address] [place] [address] Gastroenterology 07/17/17 Team Status: Active Member Role/Relationship Status Dates Dr. Donato Roa MD Primary Care Provider Active Team Status: Inactive Member Role/Relationship Status Dates Dr. Donato Roa MD Primary Care Provider Active Start: March 21, 2025 End: March 21, 2025 GABBIE Ramirez Attending Provider Active Start: March 21, 2025 End: March 21, 2025 GABBIE Ramirez Referring Provider Active Start: March 21, 2025 End: March 21, 2025 Team Status: Inactive Member Role/Relationship Status Dates Dr. Donato Roa MD Primary Care Provider Active Start: March 21, 2025 End: March 21, 2025 Dr. Donato Roa MD Referring Provider Active Start: March 21, 2025 End: March 21, 2025 GABBIE aRmirez Attending Provider Active Start: March 21, 2025 End: March 21, 2025 Team Status: Inactive Member Role/Relationship Status Dates Dr. Donato Roa MD Primary Care Provider Active Start: March 29, 2025 End: March 29, 2025 Dr. Donato Roa MD Referring Provider Active Start: March 29, 2025 End: March 29, 2025 GABBIE Ramirez Attending Provider Active Start: March 29, 2025 End: March 29, 2025 Team Status: Inactive Member Role/Relationship Status Dates Dr. Donato Roa MD Primary Care Provider Active Start: July 10, 2025 End: July 10, 2025 Dr. Timi Trujillo DO Emergency Provider Active Start: July 10, 2025 End: July 10, 2025 (unrecognized sect ion and content) No Status Records FoundNo Status Records Found INFORMATION SOURCE (unrecogn ized section and content) DATE CREATED AUTHOR 07/08/2025 [facility] DATE CREATED AUTHOR AUTHOR'S ORGANIZ ATION 07/17/2025 [facility] FOR RECORDS PERTAINING TO PATIENTS WHO ARE [...] BE BASED ON THE PRIMARY CLINICAL RECORDS. [facility], [facility]. provides no warranty or guarantee of the accuracy or completeness of information in this document.
[2025-08-05 09:54] LABS: PSA,Total - Annual Screen 3.26 ng/mL (0.02-4.00)
== END | disposition home or self-care (01) ==
LOC: LAB 08:24
PROVIDERS: PCP Family Medicine; Referring Provider Family Medicine; Visit Provider Family Medicine
DX: Z12.5 Encounter for screening for malignant neoplasm of prostate (principal)
CPT/HCPCS: 36415; 84153; G0103